=== PATIENT | male | born 1980 | race Hispanic/Latino ===

== ENCOUNTER 2017-10-24 02:32 | Emergency (ER) | payer MEDICAID ==
[~2017-10-24 02:32] MED LIST: BENZ2TAB10 PO; BUPR100T13 PO; DICL2100G TP; ESOM40CA PO; FISH1CAP50 PO; FLUT16H NASAL; GLUC-172 PO; HALOD100I IM; IBUP-2076 PO; INSU10VI3 SQ; LEVAHFA IH; LISI-617 PO; METF10004 PO; PALI234D IM; PRAV20TA4 PO; TRAZ150T79 PO; UBID100C10 PO; metoprolol PO
[2017-10-24] MEDS ORDERED: HYDROCORTISONE 25 MG SUPPOSITORY PR ONE (03:52)
== END 2017-10-24 04:22 | disposition home or self-care (01) ==
LOC: EDH 02:32
DX: K64.8 Other hemorrhoids (principal); K62.5 Hemorrhage of anus and rectum; E11.9 Type 2 diabetes mellitus without complications; I10 Essential (primary) hypertension; Z79.4 Long term (current) use of insulin; Z72.0 Tobacco use
CPT/HCPCS: 82270

== ENCOUNTER 2018-01-02 20:01 | Emergency (ER) | payer MEDICAID ==
[~2018-01-02 20:01] MED LIST changes: +METF-446 PO; -METF10004 PO
== END 2018-01-02 20:58 | disposition home or self-care (01) ==
LOC: EDH 20:01
DX: G89.29 Other chronic pain (principal); M54.5 Low back pain; M54.6 Pain in thoracic spine; E11.9 Type 2 diabetes mellitus without complications; E78.5 Hyperlipidemia, unspecified; I10 Essential (primary) hypertension; F20.9 Schizophrenia, unspecified; F41.9 Anxiety disorder, unspecified; Z90.49 Acquired absence of other specified parts of digestive tract; Z72.0 Tobacco use
CPT/HCPCS: 99281

== ENCOUNTER 2018-01-11 12:38 | Emergency (ER) | payer MEDICAID ==
[2018-01-11] MEDS ORDERED: SODIUM CHLORIDE 0.9% 1000ML 1,000 ML IV ONE (13:17)
[2018-01-11 13:18] LABS: BASOPHILS % (AUTO) 0.6 % (0.0-5.0); EOSINOPHILS % (AUTO) 2.9 % (0.0-8.0); HEMATOCRIT 41.4 % (42-54); LYMPHOCYTES % (AUTO) 27.7 % (21.0-51.0); MEAN CORPUSCULAR HEMOGLOBIN 30.8 pg (27.0-33.0); MEAN CORPUSCULAR HGB CONC 33.9 g/dL (32.0-36.0); MEAN CORPUSCULAR VOLUME 90.8 fL (79-99); MONOCYTES % (AUTO) 10.6 % (3.0-13.0); NEUTROPHILS % (AUTO) 58.2 % (40.0-77.0); NUCLEATED RED BLOOD CELLS 0.1 % (0.0-0.19); PLATELET COUNT (AUTO) 129 K/uL (130-400); RED BLOOD CELL COUNT(AUTO) 4.56 MIL/uL (4.50-6.20); RED CELL DISTRIBUTION WIDTH 12.9 % (11.0-15.5); WHITE BLOOD COUNT (AUTO) 9.4 K/uL (4.8-10.8)
[2018-01-11] MEDS ORDERED: INSULIN HUMULIN R 100 UNIT/ML 3ML ONE (13:27)
[2018-01-11 13:28] LABS: CREATININE 0.9 mg/dL (0.5-1.5); POTASSIUM 4.6 mmol/L (3.5-5.1)
[2018-01-11 13:33] LABS: ALBUMIN 3.3 g/dL (3.5-5.0); BILIRUBIN,TOTAL 0.2 mg/dL (0.2-1.0); LIPASE 93 U/L (114-286)
[2018-01-11 13:35] LABS: ACETONE,BLOOD NEGATIVE (NEGATIVE)
== END 2018-01-11 15:02 | disposition home or self-care (01) ==
LOC: EDH 12:38
DX: E11.65 Type 2 diabetes mellitus with hyperglycemia (principal); E78.5 Hyperlipidemia, unspecified; I10 Essential (primary) hypertension; R42 Dizziness and giddiness; Z79.4 Long term (current) use of insulin
CPT/HCPCS: 36415; 80053; 82009; 82948 ×2; 83690; 84484; 85025; 93005; 96361; 96374; 99285; J1815; J7030

== ENCOUNTER 2018-01-13 20:23 | Emergency (ER) | payer MEDICAID ==
[2018-01-13] MEDS ORDERED: LIDOCAINE HCL 2% VISCOUS 15 ML UDCUP ONE (20:54)
[2018-01-13] MEDS ORDERED: ONDANSETRON HCL 4 MG/2 ML VIAL ONE (20:55)
[2018-01-13] MEDS ORDERED: MAG HYDROX/AL HYDROX/SIMETH ES 30 ML SUSP UDCUP ONE (20:55)
[2018-01-13 21:10] LABS: BASOPHILS % (AUTO) 0.5 % (0.0-5.0); EOSINOPHILS % (AUTO) 3.1 % (0.0-8.0); LYMPHOCYTES % (AUTO) 31.1 % (21.0-51.0); MEAN CORPUSCULAR HEMOGLOBIN 30.6 pg (27.0-33.0); MEAN CORPUSCULAR HGB CONC 34.3 g/dL (32.0-36.0); MEAN CORPUSCULAR VOLUME 89.2 fL (79-99); MONOCYTES % (AUTO) 11.5 % (3.0-13.0); NEUTROPHILS % (AUTO) 53.8 % (40.0-77.0); PLATELET COUNT (AUTO) 150 K/uL (130-400); WHITE BLOOD COUNT (AUTO) 11.4 K/uL (4.8-10.8)
[2018-01-13 21:27] LABS: CREATININE 0.9 mg/dL (0.5-1.5); POTASSIUM 4.1 mmol/L (3.5-5.1)
[2018-01-13 21:32] LABS: ALBUMIN 3.3 g/dL (3.5-5.0); BILIRUBIN,TOTAL 0.3 mg/dL (0.2-1.0)
== END 2018-01-13 21:27 | disposition home or self-care (01) ==
LOC: EDH 20:23
DX: K21.9 Gastro-esophageal reflux disease without esophagitis (principal); K52.9 Noninfective gastroenteritis and colitis, unspecified; K29.70 Gastritis, unspecified, without bleeding; E11.9 Type 2 diabetes mellitus without complications; I10 Essential (primary) hypertension; E78.5 Hyperlipidemia, unspecified; Z79.4 Long term (current) use of insulin; Z72.0 Tobacco use
CPT/HCPCS: 36415; 80053; 85025; 99284; J2405

== ENCOUNTER 2018-01-15 15:03 | Emergency (ER) | payer MEDICAID ==
[2018-01-15] MEDS ORDERED: IBUPROFEN 600 MG TABLET ONE ×2 (15:21→15:28)
[2018-01-15] MEDS ORDERED: CYCLOBENZAPRINE HCL 10 MG TABLET ONE (15:22)
== END 2018-01-15 16:31 | disposition home or self-care (01) ==
LOC: EDH 15:03
DX: S13.4XXA Sprain of ligaments of cervical spine, initial encounter (principal); M54.5 Low back pain; E11.9 Type 2 diabetes mellitus without complications; E78.5 Hyperlipidemia, unspecified; I10 Essential (primary) hypertension; Z79.4 Long term (current) use of insulin; X58.XXXA Exposure to other specified factors, initial encounter; Y93.89 Activity, other specified; Y92.89 Other specified places as the place of occurrence of the external cause; Y99.8 Other external cause status
CPT/HCPCS: 72040; 72100

== ENCOUNTER 2018-01-18 19:42 | Emergency (ER) | payer MEDICAID ==
[2018-01-18] MEDS ORDERED: IBUPROFEN 600 MG TABLET ONE (19:57)
[2018-01-18] MEDS ORDERED: MAGNESIUM CITRATE 296 ML SOLUTION ONE (20:16)
== END 2018-01-18 20:30 | disposition home or self-care (01) ==
LOC: EDH 19:42
DX: S80.02XA Contusion of left knee, initial encounter (principal); S80.01XA Contusion of right knee, initial encounter; F41.9 Anxiety disorder, unspecified; E11.9 Type 2 diabetes mellitus without complications; E78.5 Hyperlipidemia, unspecified; I10 Essential (primary) hypertension; Z90.49 Acquired absence of other specified parts of digestive tract; Z72.0 Tobacco use; W18.39XA Other fall on same level, initial encounter; Y93.01 Activity, walking, marching and hiking; Y92.89 Other specified places as the place of occurrence of the external cause; Y99.8 Other external cause status
CPT/HCPCS: 73562

== ENCOUNTER 2018-02-05 13:18 | Emergency (ER) | payer MEDICAID | END 2018-02-05 14:13 | disposition left against medical advice (07) | LOC: EDH 13:18 | DX: Z53.21 Procedure and treatment not carried out due to patient leaving prior to being seen by health care provider (principal) ==

== ENCOUNTER 2018-02-06 12:24 | Emergency (ER) | payer MEDICAID | END 2018-02-06 12:57 | disposition home or self-care (01) | LOC: EDH 12:24 | DX: G89.29 Other chronic pain (principal); M25.561 Pain in right knee; M25.562 Pain in left knee; E11.9 Type 2 diabetes mellitus without complications; E78.5 Hyperlipidemia, unspecified; I10 Essential (primary) hypertension; Z90.49 Acquired absence of other specified parts of digestive tract; Z98.890 Other specified postprocedural states; Z72.0 Tobacco use | CPT/HCPCS: 99281 ==

== ENCOUNTER 2018-02-22 00:45 | Emergency (ER) | payer MEDICAID ==
[2018-02-22 01:12] LABS: APPEARANCE,URINE Clear (CLEAR); BILIRUBIN,URINE Negative (NEGATIVE); COLOR,URINE Yellow (YELLOW); GLUCOSE, URINE (UA) >=1000 mg/dL (NEGATIVE); KETONES,URINE Negative (NEGATIVE); LEUKOCYTE ESTERASE ,URINE Negative (NEGATIVE); NITRATE,URINE Negative (NEGATIVE); OCCULT BLOOD,URINE Negative (NEGATIVE); PH,URINE 7.5 (5.0-8.0); PROTEIN,URINE Negative (NEGATIVE)
[2018-02-22 01:20] LABS: AMPHET/METH SCREEN,URINE NEGATIVE (NEGATIVE); BARBITURATE SCREEN, URINE NEGATIVE (NEGATIVE); BENZODIAZEPINES SCREEN,URINE NEGATIVE (NEGATIVE); CANNABINOID SCREEN,URINE NEGATIVE (NEGATIVE); COCAINE SCREEN,URINE NEGATIVE (NEGATIVE); OPIATE SCREEN,URINE NEGATIVE (NEGATIVE); PHENCYCLIDINE SCREEN,URINE NEGATIVE (NEGATIVE)
[2018-02-22 01:26] LABS: BASOPHILS % (AUTO) 0.6 % (0.0-5.0); EOSINOPHILS % (AUTO) 1.5 % (0.0-8.0); HEMATOCRIT 38.7 % (42-54); LYMPHOCYTES % (AUTO) 30.3 % (21.0-51.0); MEAN CORPUSCULAR HEMOGLOBIN 32.1 pg (27.0-33.0); MEAN CORPUSCULAR HGB CONC 35.5 g/dL (32.0-36.0); MEAN CORPUSCULAR VOLUME 90.4 fL (79-99); MONOCYTES % (AUTO) 11.8 % (3.0-13.0); NEUTROPHILS % (AUTO) 55.8 % (40.0-77.0); PLATELET COUNT (AUTO) 187 K/uL (130-400); RED BLOOD CELL COUNT(AUTO) 4.28 MIL/uL (4.50-6.20); RED CELL DISTRIBUTION WIDTH 13.7 % (11.0-15.5); WHITE BLOOD COUNT (AUTO) 9.8 K/uL (4.8-10.8)
[2018-02-22 01:35] LABS: CARBON DIOXIDE 27 mmol/L (21-32); CHLORIDE 98 mmol/L (101-111); CREATININE 0.7 mg/dL (0.5-1.5); GLOMERULAR FILTR. RATE CALC 135 mL/min (>60); GLUCOSE,RANDOM 325 mg/dL (70-105); POTASSIUM 3.7 mmol/L (3.5-5.1); SODIUM SERUM 135 mmol/L (136-145); UREA NITROGEN, BLOOD 7 mg/dL (7-18)
[2018-02-22 01:39] LABS: ALANINE AMINOTRANSFERASE 27 U/L (12-78); ALBUMIN 3.3 g/dL (3.5-5.0); ASPARTATE AMINOTRANSFERASE 9 U/L (10-37); BILIRUBIN,TOTAL 0.3 mg/dL (0.2-1.0); CREATINE KINASE, TOTAL 79 U/L (21-232); TOTAL PROTEIN, SERUM 6.7 g/dL (6.0-8.3)
[2018-02-22 01:48] LABS: ALCOHOL, BLOOD < 3 mg/dL (0-10)
[2018-02-22] MEDS ORDERED: SODIUM CHLORIDE 0.9% 1000ML 1,000 ML IV ONE (01:50)
[2018-02-22] MEDS ORDERED: INSULIN HUMULIN R 100 UNIT/ML 3ML ONE (01:51)
[2018-02-22] MEDS ORDERED: ACETAMINOPHEN EXTRA STRENGTH 500 MG TABLET ONE (02:20)
== END 2018-02-22 03:04 | disposition home or self-care (01) ==
LOC: EDH 00:45
DX: S09.90XA Unspecified injury of head, initial encounter (principal); E11.65 Type 2 diabetes mellitus with hyperglycemia; E86.0 Dehydration; M25.551 Pain in right hip; M25.512 Pain in left shoulder; M54.6 Pain in thoracic spine; M54.5 Low back pain; I10 Essential (primary) hypertension; E78.5 Hyperlipidemia, unspecified; Z90.49 Acquired absence of other specified parts of digestive tract; W10.8XXA Fall (on) (from) other stairs and steps, initial encounter; Y93.89 Activity, other specified; Y92.89 Other specified places as the place of occurrence of the external cause; Y99.8 Other external cause status
CPT/HCPCS: 36415; 80053; 80305; 81003; 82550; 82948; 84484; 85025; 93005; 96361; 96374; 99285; G0480; J1815; J7030

== ENCOUNTER 2018-02-26 11:19 | Emergency (ER) | payer MEDICAID ==
[2018-02-26 11:42] LABS: APPEARANCE,URINE Clear (CLEAR); BASOPHILS % (AUTO) 0.7 % (0.0-5.0); BILIRUBIN,URINE Negative (NEGATIVE); COLOR,URINE Yellow (YELLOW); EOSINOPHILS % (AUTO) 1.4 % (0.0-8.0); GLUCOSE, URINE (UA) >=1000 mg/dL (NEGATIVE); HEMATOCRIT 42.7 % (42-54); KETONES,URINE Negative (NEGATIVE); LEUKOCYTE ESTERASE ,URINE Negative (NEGATIVE); LYMPHOCYTES % (AUTO) 26.7 % (21.0-51.0); MEAN CORPUSCULAR VOLUME 91.6 fL (79-99); MONOCYTES % (AUTO) 13.5 % (3.0-13.0); NEUTROPHILS % (AUTO) 57.7 % (40.0-77.0); NITRATE,URINE Negative (NEGATIVE); OCCULT BLOOD,URINE Negative (NEGATIVE); PLATELET COUNT (AUTO) 191 K/uL (130-400); PROTEIN,URINE Negative (NEGATIVE); RED BLOOD CELL COUNT(AUTO) 4.67 MIL/uL (4.50-6.20)
[2018-02-26 11:51] LABS: BACTERIA,URINE None Seen /HPF (None Seen); RBC,URINE 0-1 /HPF (0-1); SQUAMOUS EPITHELIAL CELL,UR 0-2 /HPF (0-2); WBC,URINE 0-1 /HPF (0-1)
[2018-02-26 12:00] LABS: ALBUMIN 3.4 g/dL (3.5-5.0); BILIRUBIN,TOTAL 0.2 mg/dL (0.2-1.0); CREATININE 0.8 mg/dL (0.5-1.5); POTASSIUM 4.1 mmol/L (3.5-5.1); TOTAL PROTEIN, SERUM 6.9 g/dL (6.0-8.3)
[2018-02-26] MEDS ORDERED: ONDANSETRON HCL 4 MG/2 ML VIAL ONE (12:02)
== END 2018-02-26 12:10 | disposition left against medical advice (07) ==
LOC: EDH 11:19
DX: R11.2 Nausea with vomiting, unspecified (principal); I10 Essential (primary) hypertension; E11.9 Type 2 diabetes mellitus without complications; E78.5 Hyperlipidemia, unspecified; Z90.49 Acquired absence of other specified parts of digestive tract; Z87.891 Personal history of nicotine dependence
CPT/HCPCS: 36415; 80053; 81001; 83690; 85025; 96374; 99284; J2405

== ENCOUNTER 2018-03-21 14:56 | Emergency (ER) | payer MEDICAID ==
[2018-03-21] MEDS ORDERED: IBUPROFEN 600 MG TABLET ONE (15:44)
== END 2018-03-21 16:59 | disposition home or self-care (01) ==
LOC: EDH 14:56
DX: M25.561 Pain in right knee (principal); M25.562 Pain in left knee; M25.512 Pain in left shoulder; R51 Headache; M54.2 Cervicalgia; M54.9 Dorsalgia, unspecified; E11.9 Type 2 diabetes mellitus without complications; E78.5 Hyperlipidemia, unspecified; F20.9 Schizophrenia, unspecified; F31.9 Bipolar disorder, unspecified; F41.9 Anxiety disorder, unspecified; Z90.49 Acquired absence of other specified parts of digestive tract; Z72.0 Tobacco use; W10.8XXA Fall (on) (from) other stairs and steps, initial encounter; Y93.89 Activity, other specified; Y92.89 Other specified places as the place of occurrence of the external cause; Y99.8 Other external cause status
CPT/HCPCS: 70450; 73030; 73560

== ENCOUNTER 2018-04-26 10:40 | Emergency (ER) | payer MEDICAID | END 2018-04-26 11:02 | disposition left against medical advice (07) | LOC: EDH 10:40 | DX: M25.562 Pain in left knee (principal); M25.512 Pain in left shoulder; Z53.21 Procedure and treatment not carried out due to patient leaving prior to being seen by health care provider; F41.9 Anxiety disorder, unspecified; F31.9 Bipolar disorder, unspecified; E11.9 Type 2 diabetes mellitus without complications; E78.5 Hyperlipidemia, unspecified; I10 Essential (primary) hypertension; F20.9 Schizophrenia, unspecified; Z72.0 Tobacco use ==

== ENCOUNTER 2018-04-29 12:57 | Emergency (ER) | payer MEDICAID ==
[2018-04-29 13:43] LABS: BASOPHILS % (AUTO) 0.6 % (0.0-5.0); EOSINOPHILS % (AUTO) 2.1 % (0.0-8.0); HEMATOCRIT 41.4 % (42-54); MEAN CORPUSCULAR HEMOGLOBIN 30.9 pg (27.0-33.0); MEAN CORPUSCULAR HGB CONC 33.8 g/dL (32.0-36.0); MEAN CORPUSCULAR VOLUME 91.6 fL (79-99); MONOCYTES % (AUTO) 11.8 % (3.0-13.0); NEUTROPHILS % (AUTO) 57.5 % (40.0-77.0); NUCLEATED RED BLOOD CELLS 0.1 % (0.0-0.19); PLATELET COUNT (AUTO) 145 K/uL (130-400); RED BLOOD CELL COUNT(AUTO) 4.52 MIL/uL (4.50-6.20); RED CELL DISTRIBUTION WIDTH 13.2 % (11.0-15.5); WHITE BLOOD COUNT (AUTO) 9.4 K/uL (4.8-10.8)
[2018-04-29 13:46] LABS: APPEARANCE,URINE Clear (CLEAR); BILIRUBIN,URINE Negative (NEGATIVE); COLOR,URINE Yellow (YELLOW); GLUCOSE, URINE (UA) >=1000 mg/dL (NEGATIVE); KETONES,URINE Negative (NEGATIVE); LEUKOCYTE ESTERASE ,URINE Negative (NEGATIVE); NITRATE,URINE Negative (NEGATIVE); OCCULT BLOOD,URINE Negative (NEGATIVE); PROTEIN,URINE Negative (NEGATIVE); UROBILINOGEN,URINE 0.2 mg/dL (0.2-1.0)
[2018-04-29 13:52] LABS: BACTERIA,URINE Rare /HPF (None Seen); RBC,URINE 0-1 /HPF (0-1); SQUAMOUS EPITHELIAL CELL,UR Rare /HPF (0-2); WBC,URINE 0-1 /HPF (0-1)
[2018-04-29 14:22] LABS: CREATININE 0.7 mg/dL (0.5-1.5)
[2018-04-29 14:26] LABS: ALBUMIN 3.1 g/dL (3.5-5.0); BILIRUBIN,TOTAL 0.2 mg/dL (0.2-1.0); TOTAL PROTEIN, SERUM 6.4 g/dL (6.0-8.3)
== END 2018-04-29 14:57 | disposition home or self-care (01) ==
LOC: EDH 12:57
DX: N34.2 Other urethritis (principal); I10 Essential (primary) hypertension; E11.9 Type 2 diabetes mellitus without complications; E78.5 Hyperlipidemia, unspecified; F31.9 Bipolar disorder, unspecified; F41.9 Anxiety disorder, unspecified; Z98.890 Other specified postprocedural states; Z72.0 Tobacco use
CPT/HCPCS: 36415; 80053; 81001; 82948; 85025

== ENCOUNTER 2018-06-15 19:26 | Emergency (ER) | payer MEDICAID ==
[2018-06-15] MEDS ORDERED: IBUPROFEN 600 MG TABLET ONE (19:34)
[2018-06-15 19:54] LABS: BASOPHILS % (AUTO) 0.8 % (0.0-5.0); EOSINOPHILS % (AUTO) 1.8 % (0.0-8.0); HEMATOCRIT 39.7 % (42-54); LYMPHOCYTES % (AUTO) 27.7 % (21.0-51.0); MEAN CORPUSCULAR HEMOGLOBIN 30.8 pg (27.0-33.0); MEAN CORPUSCULAR HGB CONC 34.1 g/dL (32.0-36.0); MEAN CORPUSCULAR VOLUME 90.4 fL (79-99); MONOCYTES % (AUTO) 11.9 % (3.0-13.0); NEUTROPHILS % (AUTO) 57.8 % (40.0-77.0); NUCLEATED RED BLOOD CELLS 0.1 % (0.0-0.19); PLATELET COUNT (AUTO) 194 K/uL (130-400); RED BLOOD CELL COUNT(AUTO) 4.39 MIL/uL (4.50-6.20); RED CELL DISTRIBUTION WIDTH 13.3 % (11.0-15.5); WHITE BLOOD COUNT (AUTO) 11.5 K/uL (4.8-10.8)
[2018-06-15] MEDS ORDERED: ONDANSETRON HCL 4 MG/2 ML VIAL ONE (19:56)
[2018-06-15] MEDS ORDERED: SODIUM CHLORIDE 0.9% 1000ML 1,000 ML IV ONE (19:56)
[2018-06-15] MEDS ORDERED: MORPHINE SULFATE 4 MG/1ML SYG ONE (19:56)
[2018-06-15 20:03] LABS: BILIRUBIN,URINE Negative (NEGATIVE); COLOR,URINE Yellow (YELLOW); GLUCOSE, URINE (UA) >=1000 mg/dL (NEGATIVE); KETONES,URINE Negative (NEGATIVE); LEUKOCYTE ESTERASE ,URINE Negative (NEGATIVE); NITRATE,URINE Negative (NEGATIVE); OCCULT BLOOD,URINE Negative (NEGATIVE); PROTEIN,URINE Negative (NEGATIVE)
[2018-06-15 20:04] LABS: CREATININE 0.8 mg/dL (0.5-1.5); POTASSIUM 4.5 mmol/L (3.5-5.1)
[2018-06-15 20:08] LABS: ALBUMIN 3.7 g/dL (3.5-5.0); BILIRUBIN,TOTAL 0.3 mg/dL (0.2-1.0); TOTAL PROTEIN, SERUM 6.8 g/dL (6.0-8.3)
[2018-06-15 20:09] LABS: APPEARANCE,URINE CLEAR (CLEAR)
[2018-06-15] MEDS ORDERED: IOHEXOL-350 75 ML VIAL IV ONE (20:16)
== END 2018-06-15 21:32 | disposition home or self-care (01) ==
LOC: EDH 19:26
DX: N39.0 Urinary tract infection, site not specified (principal); K52.9 Noninfective gastroenteritis and colitis, unspecified; E11.9 Type 2 diabetes mellitus without complications; F31.9 Bipolar disorder, unspecified; F41.9 Anxiety disorder, unspecified; I10 Essential (primary) hypertension; F20.9 Schizophrenia, unspecified; E78.5 Hyperlipidemia, unspecified
CPT/HCPCS: 36415; 74177; 80053; 81003; 83690; 85025; 93005; 96361; 96374; 96375; 99284; J2270; J2405; J7030; Q9967

== ENCOUNTER 2018-07-27 23:21 | Emergency (ER) | payer MEDICAID ==
[2018-07-28 00:50] LABS: APPEARANCE,URINE Clear (CLEAR); BILIRUBIN,URINE Negative (NEGATIVE); COLOR,URINE Yellow (YELLOW); GLUCOSE, URINE (UA) >=1000 mg/dL (NEGATIVE); KETONES,URINE Negative (NEGATIVE); LEUKOCYTE ESTERASE ,URINE Negative (NEGATIVE); NITRATE,URINE Negative (NEGATIVE); OCCULT BLOOD,URINE Negative (NEGATIVE); PH,URINE 6.5 (5.0-8.0); PROTEIN,URINE Negative (NEGATIVE)
[2018-07-28] MEDS ORDERED: CYCLOBENZAPRINE HCL 10 MG TABLET ONE (02:02)
[2018-07-28] MEDS ORDERED: KETOROLAC TROMETHAMINE 60 MG/2 ML VIAL ONE (02:03)
== END 2018-07-28 02:16 | disposition home or self-care (01) ==
LOC: EDH 23:21
DX: M62.838 Other muscle spasm (principal); M54.5 Low back pain; R05 Cough; R10.9 Unspecified abdominal pain; E78.5 Hyperlipidemia, unspecified; I10 Essential (primary) hypertension; E11.9 Type 2 diabetes mellitus without complications; F31.9 Bipolar disorder, unspecified; F41.9 Anxiety disorder, unspecified; F20.9 Schizophrenia, unspecified; Z72.0 Tobacco use
CPT/HCPCS: 72100; 81003; 96372; 99284; J1885

== ENCOUNTER 2018-07-29 21:52 | Emergency (ER) | payer MEDICAID ==
[2018-07-29] MEDS ORDERED: HYDROXYZINE HCL 25 MG TABLET ONE (22:15)
== END 2018-07-29 22:34 | disposition home or self-care (01) ==
LOC: EDH 21:52
DX: F41.0 Panic disorder [episodic paroxysmal anxiety] (principal); F31.9 Bipolar disorder, unspecified; E11.9 Type 2 diabetes mellitus without complications; I10 Essential (primary) hypertension; E78.5 Hyperlipidemia, unspecified; F20.9 Schizophrenia, unspecified; Z72.0 Tobacco use

== ENCOUNTER 2018-08-19 14:56 | Emergency (ER) | payer MEDICAID ==
[2018-08-19] MEDS ORDERED: ACETAMINOPHEN EXTRA STRENGTH 500 MG TABLET ONE (15:10)
== END 2018-08-19 15:22 | disposition home or self-care (01) ==
LOC: EDH 14:56
DX: S80.02XA Contusion of left knee, initial encounter (principal); S80.01XA Contusion of right knee, initial encounter; E11.9 Type 2 diabetes mellitus without complications; E78.5 Hyperlipidemia, unspecified; F31.9 Bipolar disorder, unspecified; I10 Essential (primary) hypertension; Z87.891 Personal history of nicotine dependence; F20.9 Schizophrenia, unspecified; W01.0XXA Fall on same level from slipping, tripping and stumbling without subsequent striking against object, initial encounter; Y93.89 Activity, other specified; Y92.481 Parking lot as the place of occurrence of the external cause; Y99.8 Other external cause status
CPT/HCPCS: 99282

== ENCOUNTER 2018-12-13 12:04 | Emergency (ER) | payer MEDICAID ==
[2018-12-13] MEDS ORDERED: IBUPROFEN 600 MG TABLET ONE (12:39)
== END 2018-12-13 12:47 | disposition home or self-care (01) ==
LOC: EDH 12:04
DX: S80.01XA Contusion of right knee, initial encounter (principal); I10 Essential (primary) hypertension; F32.9 Major depressive disorder, single episode, unspecified; F20.9 Schizophrenia, unspecified; E78.5 Hyperlipidemia, unspecified; F41.9 Anxiety disorder, unspecified; Z90.49 Acquired absence of other specified parts of digestive tract; W01.0XXA Fall on same level from slipping, tripping and stumbling without subsequent striking against object, initial encounter; Y93.89 Activity, other specified; Y92.89 Other specified places as the place of occurrence of the external cause; Y99.0 Civilian activity done for income or pay
CPT/HCPCS: 73562

== ENCOUNTER 2019-02-15 17:42 | Emergency (ER) | payer MEDICAID ==
[2019-02-15 18:17] LABS: BASOPHILS % (AUTO) 0.7 % (0.0-5.0); EOSINOPHILS % (AUTO) 0.9 % (0.0-8.0); HEMATOCRIT 37.7 % (42-54); LYMPHOCYTES % (AUTO) 30.2 % (21.0-51.0); MEAN CORPUSCULAR HEMOGLOBIN 31.9 pg (27.0-33.0); MEAN CORPUSCULAR VOLUME 91.2 fL (79-99); MONOCYTES % (AUTO) 14.1 % (3.0-13.0); NEUTROPHILS % (AUTO) 54.1 % (40.0-77.0); PLATELET COUNT (AUTO) 214 K/uL (130-400); RED BLOOD CELL COUNT(AUTO) 4.14 MIL/uL (4.50-6.20); RED CELL DISTRIBUTION WIDTH 13.6 % (11.0-15.5); WHITE BLOOD COUNT (AUTO) 12.1 K/uL (4.8-10.8)
[2019-02-15 18:23] LABS: AMPHET/METH SCREEN,URINE NEGATIVE (NEGATIVE); BARBITURATE SCREEN, URINE NEGATIVE (NEGATIVE); BENZODIAZEPINES SCREEN,URINE NEGATIVE (NEGATIVE); CANNABINOID SCREEN,URINE NEGATIVE (NEGATIVE); COCAINE SCREEN,URINE NEGATIVE (NEGATIVE); OPIATE SCREEN,URINE NEGATIVE (NEGATIVE); PHENCYCLIDINE SCREEN,URINE NEGATIVE (NEGATIVE)
[2019-02-15 18:28] LABS: CARBON DIOXIDE 28 mmol/L (21-32); CHLORIDE 97 mmol/L (101-111); CREATININE 0.7 mg/dL (0.5-1.5); GLOMERULAR FILTR. RATE CALC 134 mL/min (>60); GLUCOSE,RANDOM 197 mg/dL (70-105); SODIUM SERUM 132 mmol/L (136-145); UREA NITROGEN, BLOOD 8 mg/dL (7-18)
[2019-02-15 18:33] LABS: ALANINE AMINOTRANSFERASE 36 U/L (12-78); ASPARTATE AMINOTRANSFERASE 21 U/L (10-37); BILIRUBIN,TOTAL 0.3 mg/dL (0.2-1.0); SALICYLATE 3.3 mg/dL (2.8-20.0); TOTAL PROTEIN, SERUM 7.5 g/dL (6.0-8.3)
[2019-02-15 18:35] LABS: ACETAMINOPHEN < 1 mcg/mL (10-29); ALCOHOL, BLOOD < 3 mg/dL (0-10)
== END 2019-02-15 21:49 | disposition short-term general hospital (02) ==
LOC: EDH 17:42
DX: R45.851 Suicidal ideations (principal); F41.9 Anxiety disorder, unspecified; F31.9 Bipolar disorder, unspecified; E11.9 Type 2 diabetes mellitus without complications; E78.5 Hyperlipidemia, unspecified; I10 Essential (primary) hypertension; F20.9 Schizophrenia, unspecified; Z90.49 Acquired absence of other specified parts of digestive tract; Z72.0 Tobacco use
CPT/HCPCS: 36415; 80053; 80305; 85025; 99285; G0480 ×2; G0481

== ENCOUNTER 2022-02-21 21:27 | Emergency (ER) | payer MEDICAID ==
[~2022-02-21] VITALS: Ht 180.3 cm; Wt 106.1 kg
[~2022-02-21 21:27] MED LIST changes: -LISI-617 PO; +LISI5TAB21 PO
[2022-02-22 01:12] VITALS: BP 131/65
[2022-02-22 01:13] LABS: BASOPHILS % (AUTO) 0.5 % (0.0-5.0); EOSINOPHILS % (AUTO) 0.8 % (0.0-8.0); HEMATOCRIT 45.6 % (42-54); LYMPHOCYTES % (AUTO) 21.3 % (21.0-51.0); MEAN CORPUSCULAR HGB CONC 35.5 g/dL (32.0-36.0); MEAN CORPUSCULAR VOLUME 87.4 fL (79-99); NEUTROPHILS % (AUTO) 65.9 % (40.0-77.0); PLATELET COUNT (AUTO) 171 K/uL (130-400); RED BLOOD CELL COUNT(AUTO) 5.22 MIL/uL (4.50-6.20); RED CELL DISTRIBUTION WIDTH 13.2 % (11.0-15.5); WHITE BLOOD COUNT (AUTO) 14.8 K/uL (4.8-10.8)
[2022-02-22 01:23] LABS: CARBON DIOXIDE 26 mmol/L (21-32); CHLORIDE 98 mmol/L (101-111); CREATININE 0.6 mg/dL (0.5-1.5); GLOMERULAR FILTR. RATE CALC 158 mL/min (>60); GLUCOSE,RANDOM 243 mg/dL (70-105); POTASSIUM 3.8 mmol/L (3.5-5.1); SODIUM SERUM 133 mmol/L (136-145); UREA NITROGEN, BLOOD 23 mg/dL (7-18)
[2022-02-22 01:27] LABS: ALANINE AMINOTRANSFERASE 32 U/L (12-78); ALBUMIN 3.6 g/dL (3.5-5.0); ASPARTATE AMINOTRANSFERASE 17 U/L (10-37); TOTAL PROTEIN, SERUM 6.9 g/dL (6.0-8.3)
[2022-02-22] MEDS ORDERED: ACETAMINOPHEN 500 MG TABLET PO ONE (01:30)
[2022-02-22 01:31] LABS: CRP QUANTITATIVE < 2.00 mg/L (0.00-9.0)
[2022-02-22 02:16] LABS: APPEARANCE,URINE CLEAR (CLEAR); BILIRUBIN,URINE NEGATIVE (NEGATIVE); COLOR,URINE COLORLESS (YELLOW); GLUCOSE, URINE (UA) >=1000 mg/dL (NEGATIVE); KETONES,URINE NEGATIVE (NEGATIVE); LEUKOCYTE ESTERASE ,URINE NEGATIVE Leu/uL (NEGATIVE); NITRATE,URINE NEGATIVE (NEGATIVE); OCCULT BLOOD,URINE NEGATIVE (NEGATIVE); PH,URINE 5.5 (5.0-8.0); PROTEIN,URINE NEGATIVE (NEGATIVE); UROBILINOGEN,URINE 0.2 mg/dL (0.2-1.0)
[2022-02-22 02:19] LABS: AMPHET/METH SCREEN,URINE NEGATIVE (NEGATIVE); BARBITURATE SCREEN, URINE NEGATIVE (NEGATIVE); BENZODIAZEPINES SCREEN,URINE NEGATIVE (NEGATIVE); CANNABINOID SCREEN,URINE NEGATIVE (NEGATIVE); COCAINE SCREEN,URINE NEGATIVE (NEGATIVE); OPIATE SCREEN,URINE NEGATIVE (NEGATIVE); PHENCYCLIDINE SCREEN,URINE NEGATIVE (NEGATIVE); RBC,URINE 0-1 /HPF (0-1); SQUAMOUS EPITHELIAL CELL,UR RARE /HPF (0-2); WBC,URINE 0-1 /HPF (0-1)
[2022-02-22 02:22] LABS: ERYTHROCYTE SEDIMENTATION RATE 4 MM/HR (0-15)
[2022-02-22] MEDS ORDERED: ACET-66 PO (02:30)
== END 2022-02-22 02:33 | disposition home or self-care (01) ==
LOC: EDH 21:27
DX: S76.912A Strain of unspecified muscles, fascia and tendons at thigh level, left thigh, initial encounter (principal); S76.911A Strain of unspecified muscles, fascia and tendons at thigh level, right thigh, initial encounter; S86.911A Strain of unspecified muscle(s) and tendon(s) at lower leg level, right leg, initial encounter; S86.912A Strain of unspecified muscle(s) and tendon(s) at lower leg level, left leg, initial encounter; E78.00 Pure hypercholesterolemia, unspecified; E11.9 Type 2 diabetes mellitus without complications; F20.9 Schizophrenia, unspecified; F32.A Depression, unspecified; F41.9 Anxiety disorder, unspecified; I10 Essential (primary) hypertension; Z79.1 Long term (current) use of non-steroidal anti-inflammatories (NSAID); Z79.4 Long term (current) use of insulin; Z90.49 Acquired absence of other specified parts of digestive tract; X58.XXXA Exposure to other specified factors, initial encounter; Y93.89 Activity, other specified; Y92.89 Other specified places as the place of occurrence of the external cause; Y99.8 Other external cause status
CPT/HCPCS: 36415; 80053; 80305; 81001; 82550; 85025; 85651; 86140

== ENCOUNTER 2022-03-09 15:07 | Emergency (ER) | payer MEDICAID ==
[~2022-03-09] VITALS: Ht 165.1 cm; Wt 111.1 kg
[~2022-03-09 15:07] MED LIST changes: +ACET-66 PO
[2022-03-09 19:26] LABS: BASOPHILS % (AUTO) 0.3 % (0.0-5.0); EOSINOPHILS % (AUTO) 0.3 % (0.0-8.0); HEMATOCRIT 42.5 % (42-54); LYMPHOCYTES % (AUTO) 9.2 % (21.0-51.0); MEAN CORPUSCULAR HGB CONC 35.1 g/dL (32.0-36.0); MEAN CORPUSCULAR VOLUME 88.5 fL (79-99); MONOCYTES % (AUTO) 11.3 % (3.0-13.0); NEUTROPHILS % (AUTO) 78.3 % (40.0-77.0); PLATELET COUNT (AUTO) 186 K/uL (130-400); RED CELL DISTRIBUTION WIDTH 13.2 % (11.0-15.5); WHITE BLOOD COUNT (AUTO) 19.7 K/uL (4.8-10.8)
[2022-03-09 19:50] LABS: APPEARANCE,URINE CLEAR (CLEAR); BILIRUBIN,URINE NEGATIVE (NEGATIVE); COLOR,URINE COLORLESS (YELLOW); GLUCOSE, URINE (UA) >=1000 mg/dL (NEGATIVE); KETONES,URINE 5 mg/dL (NEGATIVE); LEUKOCYTE ESTERASE ,URINE NEGATIVE Leu/uL (NEGATIVE); NITRATE,URINE NEGATIVE (NEGATIVE); OCCULT BLOOD,URINE NEGATIVE (NEGATIVE); PROTEIN,URINE NEGATIVE (NEGATIVE); UROBILINOGEN,URINE 0.2 mg/dL (0.2-1.0)
[2022-03-09 19:51] LABS: SQUAMOUS EPITHELIAL CELL,UR RARE /HPF (0-2); WBC,URINE 0-1 /HPF (0-1)
[2022-03-09 19:57] LABS: CARBON DIOXIDE 28 mmol/L (21-32); CHLORIDE 95 mmol/L (101-111); CREATININE 0.7 mg/dL (0.5-1.5); GLOMERULAR FILTR. RATE CALC 132 mL/min (>60); GLUCOSE,RANDOM 283 mg/dL (70-105); POTASSIUM 3.7 mmol/L (3.5-5.1); SODIUM SERUM 132 mmol/L (136-145); UREA NITROGEN, BLOOD 12 mg/dL (7-18)
[2022-03-09 20:00] VITALS: BP 137/83
[2022-03-09] MEDS: HYDROCODONE/ACETAMINOPHEN 10/325 MG TAB ONE ×2 (20:00→20:31)
[2022-03-09] MEDS ORDERED: HYDROCODONE/ACETAMINOPHEN 10/325 MG TAB PO SCH (20:00)
[2022-03-09 20:04] LABS: ALANINE AMINOTRANSFERASE 20 U/L (12-78); ALBUMIN 3.3 g/dL (3.5-5.0); ALCOHOL, BLOOD < 3 mg/dL (0-10); ASPARTATE AMINOTRANSFERASE 14 U/L (10-37)
== END 2022-03-09 20:32 | disposition home or self-care (01) ==
LOC: EDH 15:07
DX: S80.12XA Contusion of left lower leg, initial encounter (principal); S70.12XA Contusion of left thigh, initial encounter; F41.9 Anxiety disorder, unspecified; F32.A Depression, unspecified; E11.9 Type 2 diabetes mellitus without complications; E78.00 Pure hypercholesterolemia, unspecified; I10 Essential (primary) hypertension; R22.42 Localized swelling, mass and lump, left lower limb; F20.9 Schizophrenia, unspecified; Z90.89 Acquired absence of other organs; Z79.84 Long term (current) use of oral hypoglycemic drugs; Z79.4 Long term (current) use of insulin; Z79.899 Other long term (current) drug therapy; W01.0XXA Fall on same level from slipping, tripping and stumbling without subsequent striking against object, initial encounter; Y93.89 Activity, other specified; Y92.89 Other specified places as the place of occurrence of the external cause; Y99.8 Other external cause status
CPT/HCPCS: 36415; 70450; 72125; 72190; 73552; 73590; 80053; 81001; 83605; 84484; 85025; 93971

== ENCOUNTER 2022-03-22 11:18 | Emergency (ER) | payer MEDICAID ==
[2022-03-22 11:19] VITALS: BP 142/89
== END 2022-03-22 12:16 | disposition left against medical advice (07) ==
LOC: EDH 11:18
DX: M79.652 Pain in left thigh (principal); Z53.21 Procedure and treatment not carried out due to patient leaving prior to being seen by health care provider

== ENCOUNTER 2022-07-05 15:17 | Emergency (ER) | payer MEDICAID ==
[~2022-07-05] VITALS: Ht 180.3 cm; Wt 88.5 kg
[2022-07-05 16:08] VITALS: BP 122/74
[2022-07-05 16:15] LABS: APPEARANCE,URINE CLEAR (CLEAR); BILIRUBIN,URINE NEGATIVE (NEGATIVE); COLOR,URINE COLORLESS (YELLOW); GLUCOSE, URINE (UA) >=1000 mg/dL (NEGATIVE); KETONES,URINE NEGATIVE (NEGATIVE); LEUKOCYTE ESTERASE ,URINE NEGATIVE Leu/uL (NEGATIVE); NITRATE,URINE NEGATIVE (NEGATIVE); OCCULT BLOOD,URINE NEGATIVE (NEGATIVE); PROTEIN,URINE NEGATIVE (NEGATIVE); UROBILINOGEN,URINE 0.2 mg/dL (0.2-1.0)
[2022-07-05 16:17] LABS: AMPHET/METH SCREEN,URINE NEGATIVE (NEGATIVE); BARBITURATE SCREEN, URINE NEGATIVE (NEGATIVE); BENZODIAZEPINES SCREEN,URINE NEGATIVE (NEGATIVE); CANNABINOID SCREEN,URINE NEGATIVE (NEGATIVE); COCAINE SCREEN,URINE NEGATIVE (NEGATIVE); OPIATE SCREEN,URINE NEGATIVE (NEGATIVE); PHENCYCLIDINE SCREEN,URINE NEGATIVE (NEGATIVE)
[2022-07-05 16:20] LABS: RBC,URINE 0-1 /HPF (0-1); SQUAMOUS EPITHELIAL CELL,UR RARE /HPF (0-2); WBC,URINE 0-1 /HPF (0-1)
[2022-07-05 16:26] LABS: BASOPHILS % (AUTO) 0.4 % (0.0-5.0); EOSINOPHILS % (AUTO) 0.7 % (0.0-8.0); LYMPHOCYTES % (AUTO) 14.9 % (21.0-51.0); MEAN CORPUSCULAR HEMOGLOBIN 29.9 pg (27.0-33.0); MEAN CORPUSCULAR VOLUME 87.9 fL (79-99); MONOCYTES % (AUTO) 10.6 % (3.0-13.0); NEUTROPHILS % (AUTO) 72.9 % (40.0-77.0); PLATELET COUNT (AUTO) 206 K/uL (130-400); RED BLOOD CELL COUNT(AUTO) 5.69 MIL/uL (4.50-6.20); RED CELL DISTRIBUTION WIDTH 14.3 % (11.0-15.5); WHITE BLOOD COUNT (AUTO) 11.2 K/uL (4.8-10.8)
[2022-07-05 16:30] LABS: CARBON DIOXIDE 26 mmol/L (21-32); CHLORIDE 93 mmol/L (101-111); CREATININE 0.8 mg/dL (0.5-1.5); GLOMERULAR FILTR. RATE CALC 113 mL/min (>90); GLUCOSE,RANDOM 366 mg/dL (70-105); POTASSIUM 3.9 mmol/L (3.5-5.1); SODIUM SERUM 127 mmol/L (136-145); UREA NITROGEN, BLOOD 13 mg/dL (7-18)
[2022-07-05 16:34] LABS: ALANINE AMINOTRANSFERASE 33 U/L (12-78); ALBUMIN 3.7 g/dL (3.5-5.0); ASPARTATE AMINOTRANSFERASE 12 U/L (10-37); SALICYLATE 3.6 mg/dL (2.8-20.0); TOTAL PROTEIN, SERUM 7.4 g/dL (6.0-8.3)
[2022-07-05 16:35] LABS: ACETAMINOPHEN < 1 mcg/mL (10-29)
[2022-07-05] MEDS ORDERED: 0.9%NACL 1000ML 1,000 ML IV ONE (17:00)
[2022-07-05] MEDS ORDERED: INSULIN HUMULIN R 100 UNIT/ML 3ML IV ONE (17:00)
== END 2022-07-05 18:26 | disposition home or self-care (01) ==
LOC: EDH 15:17
DX: R45.851 Suicidal ideations (principal); R44.3 Hallucinations, unspecified; I10 Essential (primary) hypertension; E11.9 Type 2 diabetes mellitus without complications; E78.00 Pure hypercholesterolemia, unspecified; Z79.899 Other long term (current) drug therapy; Z79.84 Long term (current) use of oral hypoglycemic drugs
CPT/HCPCS: 99283; 96374; 96361; 80053; 80305; 85025; 82948; 36415; 81001; J1815; G0481; J7030

== ENCOUNTER 2022-11-08 16:24 | Emergency (ER) | payer MEDICAID ==
[~2022-11-08] VITALS: Ht 180.3 cm; Wt 122.5 kg
[~2022-11-08 16:24] MED LIST changes: -BENZ2TAB10 PO; +BENZ2TAB70 PO
[2022-11-08] MEDS ORDERED: KETOROLAC 30MG VIAL (30MG/ML) IVP ONE (17:00)
[2022-11-08] MEDS ORDERED: FAMOTIDINE 20MG VIAL IV ONE (17:00)
[2022-11-08 17:30] LABS: HEMATOCRIT 44.5 % (42-54); MEAN CORPUSCULAR HEMOGLOBIN 30.5 pg (27.0-33.0); MEAN CORPUSCULAR HGB CONC 34.8 g/dL (32.0-36.0); MEAN CORPUSCULAR VOLUME 87.6 fL (79-99); RED BLOOD CELL COUNT(AUTO) 5.08 MIL/uL (4.50-6.20); RED CELL DISTRIBUTION WIDTH 12.8 % (11.0-15.5); WHITE BLOOD COUNT (AUTO) 9.2 K/uL (4.8-10.8)
[2022-11-08 17:37] LABS: CREATININE 0.8 mg/dL (0.5-1.5); POTASSIUM 3.8 mmol/L (3.5-5.1)
[2022-11-08 17:42] LABS: ALBUMIN 3.2 g/dL (3.5-5.0); TOTAL PROTEIN, SERUM 6.6 g/dL (6.0-8.3)
[2022-11-08] MEDS ORDERED: INSULIN HUMULIN R 100 UNIT/ML 3ML SQ ONE (18:00)
[2022-11-08 18:48] VITALS: BP 119/71; PULSE 91; RESP 18
== END 2022-11-08 18:51 | disposition home or self-care (01) ==
LOC: EDH 16:24
DX: R73.9 Hyperglycemia, unspecified (principal); E78.00 Pure hypercholesterolemia, unspecified; I10 Essential (primary) hypertension; Z79.4 Long term (current) use of insulin; Z79.84 Long term (current) use of oral hypoglycemic drugs; Z79.899 Other long term (current) drug therapy; W01.10XA Fall on same level from slipping, tripping and stumbling with subsequent striking against unspecified object, initial encounter; Y93.89 Activity, other specified; Y92.89 Other specified places as the place of occurrence of the external cause; Y99.8 Other external cause status
CPT/HCPCS: 99285; 70450; 96374; 71045; 96375; 80053; 85027; 36415; 73521; 72125; 96372; J1815; J1885; S0028; J3490

== ENCOUNTER 2022-11-09 17:52 | Emergency (ER) | payer MEDICAID ==
[~2022-11-09] VITALS: Ht 180.3 cm; Wt 122.5 kg
[2022-11-09 17:53] VITALS: BP 164/90; PULSE 113; RESP 18
== END 2022-11-09 18:02 | disposition left against medical advice (07) ==
LOC: EDH 17:52
DX: R45.851 Suicidal ideations (principal); Z53.21 Procedure and treatment not carried out due to patient leaving prior to being seen by health care provider
CPT/HCPCS: 99281

== ENCOUNTER 2022-11-28 11:20 | Emergency (ER) | payer MEDICAID | END 2022-11-28 11:30 | disposition home or self-care (01) | LOC: EDH 11:20 | DX: R45.851 Suicidal ideations (principal); Z53.21 Procedure and treatment not carried out due to patient leaving prior to being seen by health care provider ==

== ENCOUNTER 2022-12-27 09:34 | Emergency (ER) | payer MEDICAID ==
[~2022-12-27] VITALS: Ht 180.3 cm; Wt 108.9 kg
[2022-12-27] MEDS ORDERED: KETOROLAC 30MG VIAL (30MG/ML) IM ONE (10:30)
[2022-12-27] MEDS ORDERED: ACET-2079 PO (11:14)
[2022-12-27] MEDS ORDERED: IBUP-2070 PO (11:14)
[2022-12-27 11:18] VITALS: BP 124/76; PULSE 98; RESP 18; O2SAT 98
== END 2022-12-27 11:24 | disposition home or self-care (01) ==
LOC: EDH 09:34
DX: S43.085A Other dislocation of left shoulder joint, initial encounter (principal); S00.81XA Abrasion of other part of head, initial encounter; I10 Essential (primary) hypertension; E11.9 Type 2 diabetes mellitus without complications; E78.00 Pure hypercholesterolemia, unspecified; Z79.84 Long term (current) use of oral hypoglycemic drugs; Z90.49 Acquired absence of other specified parts of digestive tract; Z79.899 Other long term (current) drug therapy; Z98.890 Other specified postprocedural states; W01.0XXA Fall on same level from slipping, tripping and stumbling without subsequent striking against object, initial encounter; Y93.89 Activity, other specified; Y92.89 Other specified places as the place of occurrence of the external cause; Y99.8 Other external cause status
CPT/HCPCS: 99283; 73030; 96372; J1885

== ENCOUNTER 2023-01-02 11:50 | Emergency (ER) | payer MEDICAID ==
[~2023-01-02] VITALS: Ht 167.6 cm; Wt 108.9 kg
[~2023-01-02 11:50] MED LIST changes: +ACET-2079 PO; +IBUP-2070 PO
[2023-01-02 12:41] VITALS: BP 124/74; PULSE 88; RESP 16; O2SAT 99
== END 2023-01-02 14:49 | disposition home or self-care (01) ==
LOC: EDH 11:50
DX: S43.491A Other sprain of right shoulder joint, initial encounter (principal); I10 Essential (primary) hypertension; E11.9 Type 2 diabetes mellitus without complications; E78.00 Pure hypercholesterolemia, unspecified; F20.9 Schizophrenia, unspecified; Z79.4 Long term (current) use of insulin; Z79.84 Long term (current) use of oral hypoglycemic drugs; Z79.899 Other long term (current) drug therapy; Z90.49 Acquired absence of other specified parts of digestive tract; Z98.890 Other specified postprocedural states; W18.39XA Other fall on same level, initial encounter; Y93.89 Activity, other specified; Y92.89 Other specified places as the place of occurrence of the external cause; Y99.8 Other external cause status
CPT/HCPCS: 73030

== ENCOUNTER 2023-02-10 16:27 | Emergency (ER) | payer MEDICAID ==
[~2023-02-10] VITALS: Ht 180.3 cm; Wt 111.1 kg
[2023-02-10 16:41] VITALS: BP 136/88; PULSE 107; RESP 18; O2SAT 96
[2023-02-10] MEDS ORDERED: FLUT16H NASAL (17:48)
[2023-02-10] MEDS ORDERED: CETI10CA5 PO (17:48)
[2023-02-10 17:58] LABS: BASOPHILS # (AUTO) 0.06 K/uL (0.00-0.20); BASOPHILS % (AUTO) 0.6 % (0.0-5.0); EOSINOPHILS # (AUTO) 0.09 K/uL (0.00-0.70); EOSINOPHILS % (AUTO) 0.9 % (0.0-8.0); HEMATOCRIT 48.3 % (42-54); IMMATURE GRANULOCYTE ABSOLUTE 0.04 K/uL (0-1); LYMPHOCYTES # (AUTO) 2.8 K/uL (1.0-4.8); LYMPHOCYTES % (AUTO) 26.9 % (21.0-51.0); MEAN CORPUSCULAR HEMOGLOBIN 30.6 pg (27.0-33.0); MEAN CORPUSCULAR HGB CONC 34.4 g/dL (32.0-36.0); MONOCYTES # (AUTO) 1.3 K/uL (0.1-1.0); MONOCYTES % (AUTO) 12.9 % (3.0-13.0); NEUTROPHILS % (AUTO) 58.3 % (40.0-77.0); PLATELET COUNT (AUTO) 225 K/uL (130-400); RED BLOOD CELL COUNT(AUTO) 5.43 MIL/uL (4.50-6.20); RED CELL DISTRIBUTION WIDTH 12.4 % (11.0-15.5); WHITE BLOOD COUNT (AUTO) 10.3 K/uL (4.8-10.8)
[2023-02-10] MEDS ORDERED: CETIRIZINE HCL 5 MG TABLET PO SCH (18:00)
[2023-02-10] MEDS ORDERED: SOLU-MEDROL 125MG VIAL IVP ONE (18:00)
[2023-02-10] MEDS ORDERED: 0.9%NACL 1000ML 1,000 ML IV ONE (18:00)
[2023-02-10 18:06] LABS: CREATININE 0.8 mg/dL (0.5-1.5); POTASSIUM 3.8 mmol/L (3.5-5.1)
[2023-02-11] MEDS ORDERED: CETIRIZINE HCL 5 MG TABLET PO SCH (09:00)
== END 2023-02-10 18:50 | disposition home or self-care (01) ==
LOC: EDH 16:27
DX: J30.9 Allergic rhinitis, unspecified (principal); E11.9 Type 2 diabetes mellitus without complications; E78.00 Pure hypercholesterolemia, unspecified; I10 Essential (primary) hypertension; Z79.4 Long term (current) use of insulin; Z79.84 Long term (current) use of oral hypoglycemic drugs; Z79.899 Other long term (current) drug therapy; Z90.49 Acquired absence of other specified parts of digestive tract
CPT/HCPCS: 99283; 96374; 96361; 80048; 85025; 36415; J7030; J2930

== ENCOUNTER 2023-03-06 16:15 | Emergency (ER) | payer MEDICAID ==
[~2023-03-06] VITALS: Ht 177.8 cm; Wt 113.9 kg
[~2023-03-06 16:15] MED LIST changes: +CETI10CA5 PO
[2023-03-06 18:18] VITALS: BP 142/78; PULSE 94; RESP 16; O2SAT 98
[2023-03-06] MEDS ORDERED: MUPI22OI2 TP (18:40)
[2023-03-06] MEDS ORDERED: CEPH500T PO (18:40)
== END 2023-03-06 19:01 | disposition home or self-care (01) ==
LOC: EDH 16:15
DX: L03.012 Cellulitis of left finger (principal); E11.9 Type 2 diabetes mellitus without complications; I10 Essential (primary) hypertension; E78.00 Pure hypercholesterolemia, unspecified; J45.909 Unspecified asthma, uncomplicated; Z79.84 Long term (current) use of oral hypoglycemic drugs; Z79.899 Other long term (current) drug therapy; Z90.49 Acquired absence of other specified parts of digestive tract; Z98.890 Other specified postprocedural states
CPT/HCPCS: 10060; 73140

== ENCOUNTER 2023-04-11 21:54 | Emergency (ER) | payer MEDICAID ==
[~2023-04-11] VITALS: Ht 175.3 cm; Wt 108.9 kg
[~2023-04-11 21:54] MED LIST changes: +CEPH500T PO; +MUPI22OI2 TP
[2023-04-12] MEDS ORDERED: IPRATROPIUM/ALBUTEROL SULFATE 3 ML SOLUTION IH ONE ×2 (00:30→02:00)
[2023-04-12] MEDS ORDERED: LEVAHFA IH (00:33)
[2023-04-12 01:05] LABS: RAPID GROUP A STREP negative (NEGATIVE)
[2023-04-12] MEDS ORDERED: AMOX1TAB16 PO (01:08)
[2023-04-12 01:11] LABS: SARS-CoV-2, RNA, NAAT NEGATIVE SARS CoV-2 (NEGATIVE)
[2023-04-12 01:16] LABS: INFLUENZA TYPE A Negative For Type A (NEGATIVE); INFLUENZA TYPE B Negative For Type B (NEGATIVE)
[2023-04-12] MEDS: PREDNISONE 20 MG TABLET ONE ×2 (01:48→01:49)
[2023-04-12] MEDS ORDERED: MAGNESIUM 2GM PREMIX 50ML 50 ML IV SCH (02:00)
[2023-04-12] MEDS ORDERED: SOLU-MEDROL 125MG VIAL IVP ONE (02:00)
[2023-04-12] MEDS ORDERED: PREDNISONE 20 MG TABLET PO ONE (02:00)
[2023-04-12 02:08] LABS: HEMATOCRIT 46.8 % (42-54); MEAN CORPUSCULAR HEMOGLOBIN 31.5 pg (27.0-33.0); MEAN CORPUSCULAR HGB CONC 35.7 g/dL (32.0-36.0); MEAN CORPUSCULAR VOLUME 88.1 fL (79-99); PLATELET COUNT (AUTO) 184 K/uL (130-400); RED BLOOD CELL COUNT(AUTO) 5.31 MIL/uL (4.50-6.20); RED CELL DISTRIBUTION WIDTH 12.6 % (11.0-15.5); WHITE BLOOD COUNT (AUTO) 14.7 K/uL (4.8-10.8)
[2023-04-12 02:17] LABS: BASOPHILS # (AUTO) 0.06 K/uL (0.00-0.20); BASOPHILS % (AUTO) 0.4 % (0.0-5.0); CREATININE 0.9 mg/dL (0.5-1.5); EOSINOPHILS # (AUTO) 0.14 K/uL (0.00-0.70); EOSINOPHILS % (AUTO) 0.9 % (0.0-8.0); IMMATURE GRANULOCYTE ABSOLUTE 0.07 K/uL (0-1); LYMPHOCYTES # (AUTO) 2.8 K/uL (1.0-4.8); LYMPHOCYTES % (AUTO) 18.8 % (21.0-51.0); MONOCYTES # (AUTO) 1.9 K/uL (0.1-1.0); MONOCYTES % (AUTO) 12.5 % (3.0-13.0); NEUTROPHILS % (AUTO) 66.9 % (40.0-77.0); POTASSIUM 3.8 mmol/L (3.5-5.1)
[2023-04-12 02:22] LABS: ALBUMIN 3.7 g/dL (3.5-5.0); BILIRUBIN,TOTAL 0.3 mg/dL (0.2-1.0); TOTAL PROTEIN, SERUM 7.4 g/dL (6.0-8.3)
[2023-04-12 02:53] VITALS: PULSE 100; RESP 20
[2023-04-12 02:55] VITALS: PULSE 97; RESP 20
[2023-04-12] MEDS ORDERED: PRED20TA3 PO (04:12)
[2023-04-12 05:24] VITALS: BP 118/70; PULSE 72; RESP 16; O2SAT 98
== END 2023-04-12 05:56 | disposition home or self-care (01) ==
LOC: EDH 21:54
DX: J01.90 Acute sinusitis, unspecified (principal); J44.1 Chronic obstructive pulmonary disease with (acute) exacerbation; F32.A Depression, unspecified; E11.9 Type 2 diabetes mellitus without complications; F20.9 Schizophrenia, unspecified; I10 Essential (primary) hypertension; Z79.4 Long term (current) use of insulin; Z79.84 Long term (current) use of oral hypoglycemic drugs; Z79.899 Other long term (current) drug therapy; Z20.822 Contact with and (suspected) exposure to COVID-19
CPT/HCPCS: 99285; 87635; 80053; 85025; 87880; 87804 ×2; 36415; 96365; 71045; 96366; 96375; 94640 ×2; C9803; J3475; J2930

== ENCOUNTER 2023-05-16 19:54 | Emergency (ER) | payer MEDICAID ==
[~2023-05-16 19:54] MED LIST changes: -ACET-2079 PO; -ACET-66 PO; +AMOX1TAB16 PO; -CEPH500T PO; -IBUP-2070 PO; -MUPI22OI2 TP; +PRED20TA3 PO
[2023-05-16 21:35] LABS: BASOPHILS # (AUTO) 0.07 K/uL (0.00-0.20); BASOPHILS % (AUTO) 0.5 % (0.0-5.0); EOSINOPHILS # (AUTO) 0.09 K/uL (0.00-0.70); EOSINOPHILS % (AUTO) 0.6 % (0.0-8.0); HEMATOCRIT 46.2 % (42-54); IMMATURE GRANULOCYTE ABSOLUTE 0.08 K/uL (0-1); LYMPHOCYTES # (AUTO) 3.1 K/uL (1.0-4.8); LYMPHOCYTES % (AUTO) 20.9 % (21.0-51.0); MEAN CORPUSCULAR HGB CONC 35.1 g/dL (32.0-36.0); MEAN CORPUSCULAR VOLUME 88.5 fL (79-99); MONOCYTES # (AUTO) 1.4 K/uL (0.1-1.0); MONOCYTES % (AUTO) 9.7 % (3.0-13.0); NEUTROPHILS % (AUTO) 67.8 % (40.0-77.0); PLATELET COUNT (AUTO) 188 K/uL (130-400); RED BLOOD CELL COUNT(AUTO) 5.22 MIL/uL (4.50-6.20); RED CELL DISTRIBUTION WIDTH 12.8 % (11.0-15.5); WHITE BLOOD COUNT (AUTO) 14.8 K/uL (4.8-10.8)
[2023-05-16] MEDS ORDERED: ALBU90AE2 IH (21:56)
[2023-05-16] MEDS ORDERED: AZIT500T2 PO (21:56)
[2023-05-16] MEDS ORDERED: PRED20TA3 PO (21:56)
[2023-05-16 22:05] LABS: CREATININE 0.8 mg/dL (0.5-1.5); POTASSIUM 3.7 mmol/L (3.5-5.1)
[2023-05-16 22:09] LABS: ALBUMIN 3.5 g/dL (3.5-5.0); BILIRUBIN,TOTAL 0.3 mg/dL (0.2-1.0)
[2023-05-16 22:23] LABS: SARS-CoV-2, RNA, NAAT POSITIVE SARS CoV-2 (NEGATIVE)
[2023-05-16 22:25] LABS: INFLUENZA TYPE A Negative For Type A (NEGATIVE); INFLUENZA TYPE B Negative For Type B (NEGATIVE)
[2023-05-16] MEDS ORDERED: NIRM1TAB PO (23:08)
[2023-05-16] MEDS ORDERED: IBUP-1493 PO (23:08)
[2023-05-16 23:15] VITALS: BP 124/78; PULSE 96; RESP 16; O2SAT 97
== END 2023-05-16 23:19 | disposition home or self-care (01) ==
LOC: EDH 19:54
DX: U07.1 COVID-19 (principal); J06.9 Acute upper respiratory infection, unspecified; I10 Essential (primary) hypertension; E11.9 Type 2 diabetes mellitus without complications; F32.A Depression, unspecified; F20.9 Schizophrenia, unspecified; Z79.84 Long term (current) use of oral hypoglycemic drugs; Z79.899 Other long term (current) drug therapy; Z98.890 Other specified postprocedural states
CPT/HCPCS: 36415; 71045; 80053; 85025; 87635; 87804

== ENCOUNTER 2023-06-20 10:48 | Emergency (ER) | payer MEDICAID ==
[~2023-06-20] VITALS: Ht 180.3 cm; Wt 113.4 kg
[~2023-06-20 10:48] MED LIST changes: -AMOX1TAB16 PO; +ASPI-1005 PO; +ATOR20TA65 PO; -BENZ2TAB70 PO; -BUPR100T13 PO; +CEPH500T PO; -CETI10CA5 PO; -DICL2100G TP; +DIVA500T69 PO; +EMPA10TA PO; -ESOM40CA PO; -FISH1CAP50 PO; +FLUO25PO10 MC; -FLUT16H NASAL; +FLUT50BL2 IH; -GLUC-172 PO; -HALOD100I IM; +HYDR50CA50 PO; -IBUP-2076 PO; +INSU100V12 SQ; -INSU10VI3 SQ; -LEVAHFA IH; +LISI2.5T13 PO; -LISI5TAB21 PO; +LORA10TA7 PO; +METO-408 PO; +OLAN20TA35 PO; -PRAV20TA4 PO; -PRED20TA3 PO; +SEMA0.258 SQ; -UBID100C10 PO; +VALB80CA PO; -metoprolol PO
[2023-06-20 11:31] LABS: BASOPHILS # (AUTO) 0.06 K/uL (0.00-0.20); BASOPHILS % (AUTO) 0.6 % (0.0-5.0); EOSINOPHILS # (AUTO) 0.07 K/uL (0.00-0.70); EOSINOPHILS % (AUTO) 0.7 % (0.0-8.0); HEMATOCRIT 48.8 % (42-54); IMMATURE GRANULOCYTE ABSOLUTE 0.09 K/uL (0-1); LYMPHOCYTES # (AUTO) 2.4 K/uL (1.0-4.8); LYMPHOCYTES % (AUTO) 22.3 % (21.0-51.0); MEAN CORPUSCULAR HEMOGLOBIN 30.8 pg (27.0-33.0); MEAN CORPUSCULAR VOLUME 87.9 fL (79-99); MONOCYTES # (AUTO) 1.2 K/uL (0.1-1.0); MONOCYTES % (AUTO) 10.9 % (3.0-13.0); NEUTROPHILS # (AUTO) 6.8 K/uL (1.8-7.7); NEUTROPHILS % (AUTO) 64.6 % (40.0-77.0); PLATELET COUNT (AUTO) 216 K/uL (130-400); RED BLOOD CELL COUNT(AUTO) 5.55 MIL/uL (4.50-6.20); WHITE BLOOD COUNT (AUTO) 10.6 K/uL (4.8-10.8)
[2023-06-20 11:49] LABS: ALBUMIN 4.1 g/dL (3.5-5.0); BILIRUBIN,TOTAL 0.4 mg/dL (0.2-1.0); CREATININE 0.8 mg/dL (0.5-1.5); TOTAL PROTEIN, SERUM 7.3 g/dL (6.0-8.3)
[2023-06-20] MEDS: 0.9%NACL 1000ML 1,000 ML IV ONE (11:53)
[2023-06-20] MEDS: KETOROLAC 30MG VIAL (30MG/ML) IVP ONE (11:54)
[2023-06-20 12:32] LABS: ADD UA MICROSCOPIC YES; APPEARANCE,URINE CLEAR (CLEAR); BILIRUBIN,URINE NEGATIVE (NEGATIVE); COLOR,URINE STRAW (YELLOW); GLUCOSE, URINE (UA) >=1000 mg/dL (NEGATIVE); KETONES,URINE NEGATIVE (NEGATIVE); LEUKOCYTE ESTERASE ,URINE NEGATIVE Leu/uL (NEGATIVE); NITRATE,URINE NEGATIVE (NEGATIVE); OCCULT BLOOD,URINE NEGATIVE (NEGATIVE); PROTEIN,URINE NEGATIVE (NEGATIVE); UROBILINOGEN,URINE 0.2 mg/dL (0.2-1.0)
[2023-06-20 12:33] LABS: RBC,URINE 0-1 /HPF (0-1); SQUAMOUS EPITHELIAL CELL,UR RARE /HPF (0-2); WBC,URINE 0-1 /HPF (0-1)
[2023-06-20] MEDS: ZOSYN 3.375GM +NS 50ML IVPB ONE (12:52)
[2023-06-20] MEDS: LACTATED RINGERS 1000ML 1,000 ML IV ONE (12:53)
[2023-06-20 15:13] VITALS: BP 137/78; PULSE 87; RESP 18; O2SAT 100
== END 2023-06-20 15:13 | disposition home or self-care (01) ==
LOC: EDH 10:48
DX: R10.9 Unspecified abdominal pain (principal); R31.9 Hematuria, unspecified; E11.65 Type 2 diabetes mellitus with hyperglycemia; R79.89 Other specified abnormal findings of blood chemistry; E78.00 Pure hypercholesterolemia, unspecified; F41.9 Anxiety disorder, unspecified; I10 Essential (primary) hypertension; Z79.1 Long term (current) use of non-steroidal anti-inflammatories (NSAID); Z79.4 Long term (current) use of insulin; Z79.82 Long term (current) use of aspirin; Z79.84 Long term (current) use of oral hypoglycemic drugs; Z79.899 Other long term (current) drug therapy
CPT/HCPCS: 99285; 74176; 96365; 96361; 96375; 80053; 83690; 85025; 87040 ×2; 83605 ×2; 81001; 36415; J7120; J7030; J1885; J2543

== ENCOUNTER 2023-07-17 18:20 | Emergency (ER) | payer MEDICAID ==
[~2023-07-17] VITALS: Ht 185.4 cm; Wt 113.4 kg
[2023-07-17 18:54] LABS: ADD UA MICROSCOPIC YES; APPEARANCE,URINE CLEAR (CLEAR); BILIRUBIN,URINE NEGATIVE (NEGATIVE); COLOR,URINE COLORLESS (YELLOW); GLUCOSE, URINE (UA) >=1000 mg/dL (NEGATIVE); KETONES,URINE NEGATIVE (NEGATIVE); LEUKOCYTE ESTERASE ,URINE NEGATIVE Leu/uL (NEGATIVE); NITRATE,URINE NEGATIVE (NEGATIVE); OCCULT BLOOD,URINE NEGATIVE (NEGATIVE); PROTEIN,URINE NEGATIVE (NEGATIVE); UROBILINOGEN,URINE 0.2 mg/dL (0.2-1.0)
[2023-07-17 18:57] LABS: AMPHET/METH SCREEN,URINE NEGATIVE (NEGATIVE); BARBITURATE SCREEN, URINE NEGATIVE (NEGATIVE); BENZODIAZEPINES SCREEN,URINE NEGATIVE (NEGATIVE); CANNABINOID SCREEN,URINE NEGATIVE (NEGATIVE); COCAINE SCREEN,URINE NEGATIVE (NEGATIVE); OPIATE SCREEN,URINE NEGATIVE (NEGATIVE); PHENCYCLIDINE SCREEN,URINE NEGATIVE (NEGATIVE)
[2023-07-17 19:00] LABS: BACTERIA,URINE RARE /HPF (None Seen); SQUAMOUS EPITHELIAL CELL,UR RARE /HPF (0-2); WBC,URINE 0-1 /HPF (0-1)
[2023-07-17 19:23] LABS: BASOPHILS # (AUTO) 0.05 K/uL (0.00-0.20); BASOPHILS % (AUTO) 0.3 % (0.0-5.0); EOSINOPHILS # (AUTO) 0.07 K/uL (0.00-0.70); EOSINOPHILS % (AUTO) 0.4 % (0.0-8.0); HEMATOCRIT 45.3 % (42-54); IMMATURE GRANULOCYTE ABSOLUTE 0.08 K/uL (0-1); LYMPHOCYTES # (AUTO) 2.3 K/uL (1.0-4.8); LYMPHOCYTES % (AUTO) 12.1 % (21.0-51.0); MEAN CORPUSCULAR HEMOGLOBIN 30.7 pg (27.0-33.0); MEAN CORPUSCULAR HGB CONC 35.5 g/dL (32.0-36.0); MEAN CORPUSCULAR VOLUME 86.5 fL (79-99); MONOCYTES # (AUTO) 1.4 K/uL (0.1-1.0); MONOCYTES % (AUTO) 7.3 % (3.0-13.0); NEUTROPHILS # (AUTO) 14.9 K/uL (1.8-7.7); NEUTROPHILS % (AUTO) 79.5 % (40.0-77.0); PLATELET COUNT (AUTO) 187 K/uL (130-400); RED BLOOD CELL COUNT(AUTO) 5.24 MIL/uL (4.50-6.20); RED CELL DISTRIBUTION WIDTH 12.6 % (11.0-15.5); WHITE BLOOD COUNT (AUTO) 18.7 K/uL (4.8-10.8)
[2023-07-17 19:34] LABS: CARBON DIOXIDE 28 mmol/L (21-32); CHLORIDE 94 mmol/L (101-111); CREATININE 0.7 mg/dL (0.5-1.3); GLOMERULAR FILTR. RATE CALC 117 mL/min (>90); GLUCOSE,RANDOM 177 mg/dL (70-105); POTASSIUM 3.6 mmol/L (3.5-5.1); SODIUM SERUM 129 mmol/L (136-145); UREA NITROGEN, BLOOD 12 mg/dL (7-18)
[2023-07-17 19:38] LABS: ALANINE AMINOTRANSFERASE 33 U/L (12-78); ALBUMIN 3.6 g/dL (3.5-5.0); ALCOHOL, BLOOD < 3 mg/dL (0-10); ASPARTATE AMINOTRANSFERASE 16 U/L (10-37); BILIRUBIN,TOTAL 0.4 mg/dL (0.2-1.0); SALICYLATE 2.8 mg/dL (2.8-20.0); TOTAL PROTEIN, SERUM 6.9 g/dL (6.0-8.3)
[2023-07-17 19:39] LABS: ACETAMINOPHEN < 1 mcg/mL (10-29)
[2023-07-17] MEDS: ACETAMINOPHEN 325 MG TAB ONE (20:50)
[2023-07-17] MEDS: ACETAMINOPHEN 325 MG TAB PO ONE (20:50)
[2023-07-17 23:50] VITALS: BP 136/72; PULSE 84; RESP 20; O2SAT 98
== END 2023-07-17 23:54 | disposition home or self-care (01) ==
LOC: EDH 18:20
DX: F32.A Depression, unspecified (principal); R45.851 Suicidal ideations; E11.65 Type 2 diabetes mellitus with hyperglycemia; F41.9 Anxiety disorder, unspecified; I10 Essential (primary) hypertension; F17.200 Nicotine dependence, unspecified, uncomplicated; Z79.82 Long term (current) use of aspirin; Z79.84 Long term (current) use of oral hypoglycemic drugs; Z79.899 Other long term (current) drug therapy
CPT/HCPCS: 99284; 80053; 80305; 85025; 81001; 36415; G0481

== ENCOUNTER 2023-07-27 17:06 | Emergency (ER) | payer MEDICAID ==
[~2023-07-27] VITALS: Ht 180.3 cm; Wt 122.5 kg
[2023-07-27 17:37] LABS: APPEARANCE,URINE CLEAR (CLEAR); BILIRUBIN,URINE NEGATIVE (NEGATIVE); COLOR,URINE COLORLESS (YELLOW); GLUCOSE, URINE (UA) >=1000 mg/dL (NEGATIVE); KETONES,URINE NEGATIVE (NEGATIVE); LEUKOCYTE ESTERASE ,URINE NEGATIVE Leu/uL (NEGATIVE); NITRATE,URINE NEGATIVE (NEGATIVE); OCCULT BLOOD,URINE NEGATIVE (NEGATIVE); PROTEIN,URINE NEGATIVE (NEGATIVE); UROBILINOGEN,URINE 0.2 mg/dL (0.2-1.0)
[2023-07-27 17:39] LABS: ADD UA MICROSCOPIC YES
[2023-07-27 17:41] LABS: MUCUS,URINE RARE LPF (None Seen); RBC,URINE 0-1 /HPF (0-1); SQUAMOUS EPITHELIAL CELL,UR RARE /HPF (0-2); WBC,URINE 0-1 /HPF (0-1)
[2023-07-27] MEDS: METOCLOPRAMIDE 10 MG/2 ML VIAL IVP ONE (18:26)
[2023-07-27] MEDS: 0.9%NACL 1000ML 1,000 ML IV ONE (18:26)
[2023-07-27] MEDS: FAMOTIDINE 20MG VIAL IV ONE (18:27)
[2023-07-27] MEDS ORDERED: FAMO20TA8 PO (19:14)
[2023-07-27 19:18] VITALS: BP 118/69; PULSE 88; RESP 18; O2SAT 100
== END 2023-07-27 19:23 | disposition home or self-care (01) ==
LOC: EDH 17:06
DX: N39.0 Urinary tract infection, site not specified (principal); K29.00 Acute gastritis without bleeding; E78.00 Pure hypercholesterolemia, unspecified; I10 Essential (primary) hypertension; F17.200 Nicotine dependence, unspecified, uncomplicated; Z79.82 Long term (current) use of aspirin; Z79.84 Long term (current) use of oral hypoglycemic drugs; Z79.899 Other long term (current) drug therapy
CPT/HCPCS: 99284; 96374; 96361; 96375; 81001; J7030; J2765; S0028; J3490

== ENCOUNTER 2023-09-04 18:25 | Emergency (ER) | payer MEDICAID ==
[~2023-09-04] VITALS: Ht 180.3 cm; Wt 117.9 kg
[~2023-09-04 18:25] MED LIST changes: +FAMO20TA8 PO
[2023-09-04] MEDS: KETOROLAC 30MG VIAL (30MG/ML) IVP ONE (19:44)
[2023-09-04 19:54] LABS: BASOPHILS # (AUTO) 0.06 K/uL (0.00-0.20); BASOPHILS % (AUTO) 0.5 % (0.0-5.0); EOSINOPHILS # (AUTO) 0.05 K/uL (0.00-0.70); EOSINOPHILS % (AUTO) 0.4 % (0.0-8.0); HEMATOCRIT 47.3 % (42-54); IMMATURE GRANULOCYTE ABSOLUTE 0.06 K/uL (0-1); LYMPHOCYTES # (AUTO) 2.6 K/uL (1.0-4.8); MEAN CORPUSCULAR HEMOGLOBIN 30.3 pg (27.0-33.0); MEAN CORPUSCULAR HGB CONC 34.9 g/dL (32.0-36.0); MEAN CORPUSCULAR VOLUME 86.8 fL (79-99); MONOCYTES # (AUTO) 1.4 K/uL (0.1-1.0); MONOCYTES % (AUTO) 11.2 % (3.0-13.0); NEUTROPHILS # (AUTO) 8.4 K/uL (1.8-7.7); NEUTROPHILS % (AUTO) 66.4 % (40.0-77.0); PLATELET COUNT (AUTO) 171 K/uL (130-400); RED BLOOD CELL COUNT(AUTO) 5.45 MIL/uL (4.50-6.20); RED CELL DISTRIBUTION WIDTH 13.2 % (11.0-15.5); WHITE BLOOD COUNT (AUTO) 12.6 K/uL (4.8-10.8)
[2023-09-04 20:04] LABS: INR <= 0.93 (0.85-1.15); PROTHROMBIN TIME 10.7 SEC (9.6-11.6)
[2023-09-04 20:05] LABS: PARTIAL THROMBOPLASTIN TIME 27.1 SEC (26.3-35.5)
[2023-09-04 20:12] LABS: CREATININE 0.8 mg/dL (0.5-1.3)
[2023-09-04 20:17] LABS: ALBUMIN 3.8 g/dL (3.5-5.0); BILIRUBIN,TOTAL 0.3 mg/dL (0.2-1.0); TOTAL PROTEIN, SERUM 7.5 g/dL (6.0-8.3)
[2023-09-04 20:21] LABS: APPEARANCE,URINE CLEAR (CLEAR); BILIRUBIN,URINE NEGATIVE (NEGATIVE); COLOR,URINE COLORLESS (YELLOW); GLUCOSE, URINE (UA) >=1000 mg/dL (NEGATIVE); KETONES,URINE NEGATIVE (NEGATIVE); LEUKOCYTE ESTERASE ,URINE NEGATIVE Leu/uL (NEGATIVE); NITRATE,URINE NEGATIVE (NEGATIVE); OCCULT BLOOD,URINE NEGATIVE (NEGATIVE); PROTEIN,URINE NEGATIVE (NEGATIVE); UROBILINOGEN,URINE 0.2 mg/dL (0.2-1.0)
[2023-09-04 20:22] LABS: ADD UA MICROSCOPIC YES
[2023-09-04 21:04] LABS: RBC,URINE 0-1 /HPF (0-1); WBC,URINE 0-1 /HPF (0-1)
[2023-09-04 21:13] VITALS: BP 126/78; PULSE 98; RESP 18; O2SAT 98
== END 2023-09-04 21:15 | disposition home or self-care (01) ==
LOC: EDH 18:25
DX: R42 Dizziness and giddiness (principal); R53.1 Weakness; D69.6 Thrombocytopenia, unspecified; I10 Essential (primary) hypertension; E11.9 Type 2 diabetes mellitus without complications; E78.00 Pure hypercholesterolemia, unspecified; F17.200 Nicotine dependence, unspecified, uncomplicated; Z79.82 Long term (current) use of aspirin; Z79.84 Long term (current) use of oral hypoglycemic drugs; Z79.899 Other long term (current) drug therapy; Z98.890 Other specified postprocedural states
CPT/HCPCS: 99284; 96374; 82550; 80053; 83690; 85025; 85610; 85730; 81001; 36415; 73562; J1885

== ENCOUNTER 2023-11-02 14:30 | Emergency (ER) | payer MEDICAID ==
[~2023-11-02] VITALS: Ht 182.9 cm; Wt 99.8 kg
[~2023-11-02 14:30] MED LIST changes: -OLAN20TA35 PO; +OLAN20TA82 PO
[2023-11-02 15:23] LABS: ADD UA MICROSCOPIC YES; APPEARANCE,URINE CLEAR (CLEAR); BILIRUBIN,URINE NEGATIVE (NEGATIVE); COLOR,URINE LIGHT-YELLOW (YELLOW); LEUKOCYTE ESTERASE ,URINE NEGATIVE Leu/uL (NEGATIVE); NITRATE,URINE NEGATIVE (NEGATIVE); OCCULT BLOOD,URINE NEGATIVE (NEGATIVE); PH,URINE 6.5 (5.0-8.0); PROTEIN,URINE NEGATIVE (NEGATIVE); UROBILINOGEN,URINE 0.2 mg/dL (0.2-1.0)
[2023-11-02 15:25] LABS: BASOPHILS # (AUTO) 0.05 K/uL (0.00-0.20); BASOPHILS % (AUTO) 0.5 % (0.0-5.0); EOSINOPHILS # (AUTO) 0.07 K/uL (0.00-0.70); EOSINOPHILS % (AUTO) 0.7 % (0.0-8.0); HEMATOCRIT 46.4 % (42-54); IMMATURE GRANULOCYTE ABSOLUTE 0.04 K/uL (0-1); LYMPHOCYTES # (AUTO) 2.5 K/uL (1.0-4.8); LYMPHOCYTES % (AUTO) 23.6 % (21.0-51.0); MEAN CORPUSCULAR HEMOGLOBIN 31.1 pg (27.0-33.0); MEAN CORPUSCULAR HGB CONC 35.1 g/dL (32.0-36.0); MEAN CORPUSCULAR VOLUME 88.5 fL (79-99); MONOCYTES # (AUTO) 1.2 K/uL (0.1-1.0); MONOCYTES % (AUTO) 11.3 % (3.0-13.0); NEUTROPHILS # (AUTO) 6.6 K/uL (1.8-7.7); NEUTROPHILS % (AUTO) 63.5 % (40.0-77.0); PLATELET COUNT (AUTO) 197 K/uL (130-400); RED BLOOD CELL COUNT(AUTO) 5.24 MIL/uL (4.50-6.20); RED CELL DISTRIBUTION WIDTH 13.4 % (11.0-15.5); WHITE BLOOD COUNT (AUTO) 10.4 K/uL (4.8-10.8)
[2023-11-02 15:26] LABS: MUCUS,URINE RARE LPF (None Seen); RBC,URINE 0-1 /HPF (0-1); SQUAMOUS EPITHELIAL CELL,UR FEW /HPF (0-2); WBC,URINE 0-1 /HPF (0-1)
[2023-11-02 15:27] LABS: GLUCOSE, URINE (UA) >=1000 mg/dL (NEGATIVE); KETONES,URINE 5 mg/dL (NEGATIVE)
[2023-11-02 15:35] LABS: INR 1.05 (0.85-1.15); PROTHROMBIN TIME 11.3 SEC (9.6-11.6)
[2023-11-02 15:36] LABS: CREATININE 0.9 mg/dL (0.5-1.3); POTASSIUM 4.1 mmol/L (3.5-5.1)
[2023-11-02 15:37] LABS: PARTIAL THROMBOPLASTIN TIME 27.8 SEC (26.3-35.5)
[2023-11-02 15:40] LABS: ALBUMIN 3.7 g/dL (3.5-5.0); BILIRUBIN,TOTAL 0.4 mg/dL (0.2-1.0); TOTAL PROTEIN, SERUM 7.2 g/dL (6.0-8.3)
[2023-11-02] MEDS ORDERED: HYDR25SU7 RC (16:05)
[2023-11-02 16:07] VITALS: BP 121/75; PULSE 90; RESP 17; O2SAT 99
== END 2023-11-02 16:21 | disposition home or self-care (01) ==
LOC: EDH 14:30
DX: K64.8 Other hemorrhoids (principal); E11.65 Type 2 diabetes mellitus with hyperglycemia; K59.00 Constipation, unspecified; E78.00 Pure hypercholesterolemia, unspecified; I10 Essential (primary) hypertension; F17.200 Nicotine dependence, unspecified, uncomplicated; Z79.82 Long term (current) use of aspirin; Z79.84 Long term (current) use of oral hypoglycemic drugs; Z79.899 Other long term (current) drug therapy
CPT/HCPCS: 36415; 80053; 81001; 85025; 85610; 85730; 86850; 86900; 86901

== ENCOUNTER 2024-01-16 15:53 | Emergency (ER) | payer MEDICAID ==
[~2024-01-16] VITALS: Ht 180.3 cm; Wt 101.6 kg
[~2024-01-16 15:53] MED LIST changes: +HYDR25SU7 RC
[2024-01-16 16:25] VITALS: BP 120/84; PULSE 118; RESP 18; TEMP 98.6; O2SAT 97
[2024-01-16 16:44] LABS: APPEARANCE,URINE CLEAR (CLEAR); BILIRUBIN,URINE NEGATIVE (NEGATIVE); COLOR,URINE COLORLESS (YELLOW); GLUCOSE, URINE (UA) >=1000 mg/dL (NEGATIVE); KETONES,URINE NEGATIVE (NEGATIVE); LEUKOCYTE ESTERASE ,URINE 75 Leu/uL (NEGATIVE); NITRATE,URINE NEGATIVE (NEGATIVE); OCCULT BLOOD,URINE SMALL (NEGATIVE); PH,URINE 6.5 (5.0-8.0); PROTEIN,URINE NEGATIVE (NEGATIVE); UROBILINOGEN,URINE 0.2 mg/dL (0.2-1.0)
[2024-01-16 16:45] LABS: ADD UA MICROSCOPIC YES
[2024-01-16 16:46] LABS: BACTERIA,URINE RARE /HPF (None Seen); RBC,URINE 0-1 /HPF (0-1)
[2024-01-16 17:25] LABS: BASOPHILS # (AUTO) 0.05 K/uL (0.00-0.20); BASOPHILS % (AUTO) 0.5 % (0.0-5.0); EOSINOPHILS # (AUTO) 0.03 K/uL (0.00-0.70); EOSINOPHILS % (AUTO) 0.3 % (0.0-8.0); HEMATOCRIT 46.6 % (42-54); IMMATURE GRANULOCYTE ABSOLUTE 0.11 K/uL (0-1); LYMPHOCYTES % (AUTO) 19.3 % (21.0-51.0); MEAN CORPUSCULAR HEMOGLOBIN 30.5 pg (27.0-33.0); MEAN CORPUSCULAR HGB CONC 34.8 g/dL (32.0-36.0); MEAN CORPUSCULAR VOLUME 87.8 fL (79-99); MONOCYTES # (AUTO) 1.7 K/uL (0.1-1.0); MONOCYTES % (AUTO) 16.5 % (3.0-13.0); NEUTROPHILS # (AUTO) 6.5 K/uL (1.8-7.7); NEUTROPHILS % (AUTO) 62.3 % (40.0-77.0); PLATELET COUNT (AUTO) 214 K/uL (130-400); RED BLOOD CELL COUNT(AUTO) 5.31 MIL/uL (4.50-6.20); WHITE BLOOD COUNT (AUTO) 10.4 K/uL (4.8-10.8)
[2024-01-16] MEDS: 0.9%NACL 1000ML 1,000 ML IV SCH (17:26)
[2024-01-16] MEDS: ketOROlac 15MG/ML VIAL (15MG/ML) IV SCH (17:27)
[2024-01-16 17:42] LABS: CREATININE 0.8 mg/dL (0.5-1.3); POTASSIUM 3.4 mmol/L (3.5-5.1)
[2024-01-16 17:46] LABS: ALBUMIN 3.5 g/dL (3.5-5.0); BILIRUBIN,TOTAL 0.3 mg/dL (0.2-1.0); TOTAL PROTEIN, SERUM 8.3 g/dL (6.0-8.3)
[2024-01-16] MEDS ORDERED: PHEN-847 PO (18:12)
[2024-01-16] MEDS ORDERED: KETO10 PO (18:12)
== END 2024-01-16 18:38 | disposition home or self-care (01) ==
LOC: EDH 15:53
DX: R10.84 Generalized abdominal pain (principal); R30.9 Painful micturition, unspecified; E11.9 Type 2 diabetes mellitus without complications; E78.00 Pure hypercholesterolemia, unspecified; I10 Essential (primary) hypertension; F17.200 Nicotine dependence, unspecified, uncomplicated; Z79.82 Long term (current) use of aspirin; Z79.84 Long term (current) use of oral hypoglycemic drugs; Z79.85 Long-term (current) use of injectable non-insulin antidiabetic drugs; Z79.899 Other long term (current) drug therapy; Z90.49 Acquired absence of other specified parts of digestive tract; Z98.890 Other specified postprocedural states
CPT/HCPCS: 99283; 96374; 80053; 85025; 87086 ×2; 87186; 81001; 36415; J7030; J1885

== ENCOUNTER 2024-02-07 17:51 | Emergency (ER) | payer MEDICAID ==
[~2024-02-07] VITALS: Ht 177.8 cm; Wt 90.7 kg
[~2024-02-07 17:51] MED LIST changes: +KETO10 PO; +PHEN-847 PO
[2024-02-07 18:19] LABS: ADD UA MICROSCOPIC YES; APPEARANCE,URINE CLEAR (CLEAR); BILIRUBIN,URINE NEGATIVE (NEGATIVE); COLOR,URINE COLORLESS (YELLOW); GLUCOSE, URINE (UA) >=1000 mg/dL (NEGATIVE); KETONES,URINE NEGATIVE (NEGATIVE); LEUKOCYTE ESTERASE ,URINE NEGATIVE Leu/uL (NEGATIVE); NITRATE,URINE NEGATIVE (NEGATIVE); OCCULT BLOOD,URINE NEGATIVE (NEGATIVE); PROTEIN,URINE NEGATIVE (NEGATIVE); UROBILINOGEN,URINE 0.2 mg/dL (0.2-1.0)
[2024-02-07 18:20] LABS: RBC,URINE 0-1 /HPF (0-1); WBC,URINE 0-1 /HPF (0-1)
[2024-02-07] MEDS: ketOROlac 15MG/ML VIAL (15MG/ML) IV STA (18:29)
[2024-02-07 18:40] LABS: BASOPHILS # (AUTO) 0.04 K/uL (0.00-0.20); BASOPHILS % (AUTO) 0.4 % (0.0-5.0); EOSINOPHILS # (AUTO) 0.09 K/uL (0.00-0.70); EOSINOPHILS % (AUTO) 0.8 % (0.0-8.0); HEMATOCRIT 40.5 % (42-54); IMMATURE GRANULOCYTE ABSOLUTE 0.04 K/uL (0-1); LYMPHOCYTES # (AUTO) 2.9 K/uL (1.0-4.8); MEAN CORPUSCULAR HGB CONC 34.8 g/dL (32.0-36.0); MONOCYTES % (AUTO) 9.3 % (3.0-13.0); NEUTROPHILS # (AUTO) 7.1 K/uL (1.8-7.7); NEUTROPHILS % (AUTO) 63.1 % (40.0-77.0); PLATELET COUNT (AUTO) 172 K/uL (130-400); RED BLOOD CELL COUNT(AUTO) 4.55 MIL/uL (4.50-6.20); RED CELL DISTRIBUTION WIDTH 13.2 % (11.0-15.5); WHITE BLOOD COUNT (AUTO) 11.2 K/uL (4.8-10.8)
--- NOTE | 2024-02-07 18:46 | HMCIMG ---
CT ABDOMEN WITHOUT CONTRAST. CT PELVIS WITHOUT CONTRAST. INDICATION: Bilateral flank pain TECHNIQUE: Routine transaxial imaging using 5 mm slice thickness through the abdomen and pelvis without the administration of IV contrast. Thin slice reconstructions are also provided. Coronal and sagittal reformatted images acquired for interpretation. CT was performed with one or more of the following dose reduction techniques: Automated exposure control, adjustment of the mA and/or kV according to patient size, or use of iterative reconstruction technique. COMPARISON: None FINDINGS: ON NONCONTRAST IMAGING: ABDOMEN: Heart size is normal. Visible lung bases are clear. No abnormal renal calcifications, hydronephrosis, perinephric inflammation, or proximal hydroureter detected. The liver is normal in size and smooth in contour without biliary duct dilation. The spleen is normal in size and attenuation. The gallbladder is absent. The pancreas appears normal without pancreatic duct dilation. The adrenal glands appear normal. No significant abdominal, retrocrural or retroperitoneal adenopathy noted. No evidence for intra-abdominal free air or organized fluid collection. No aortic aneurysmal dilation identified. PELVIS: No abnormal calcifications within the urinary bladder or distal ureters. No evidence for free air or organized pelvic fluid collection. No significant pelvic adenopathy detected. Extensive stool burden. Terminal ileum appears unremarkable. The appendix is absent. Visible osseous structures are intact. IMPRESSION: Constipation without evidence for any acute intra-abdominal or pelvic process, including no evidence for urolithiasis.
[2024-02-07 18:56] LABS: CREATININE 0.9 mg/dL (0.5-1.3); POTASSIUM 3.5 mmol/L (3.5-5.1)
[2024-02-07 19:00] LABS: ALBUMIN 3.2 g/dL (3.5-5.0); BILIRUBIN,TOTAL 0.3 mg/dL (0.2-1.0)
[2024-02-07] MEDS ORDERED: LACT20PA6 PO (19:08)
--- NOTE | 2024-02-07 19:09 | ERN ---
ED Note History of Present Illness Stated Complaint: HYPERGLYCEMIA Chief Complaint: Hyperglycemia Time Seen by MD: 17:53 Time Seen by Midlevel: 17:58 Dictation: 43-year-old male coming in complaining of bilateral flank pain that has been going on for a month. Denies having any fevers, nausea, vomiting. Patient does have a history of hypertension, diabetes, cholesterol. Allergies: Coded Allergies: No Known Drug Allergies (Verified Allergy, Unknown, 09/14/15) Home Meds Active Scripts Phenazopyridine HCl (Pyridium) 200 Mg Tab, 200 MG PO TID for 5 Days, #15 TAB Prov:ANTONINO BUNCH MD 01/16/24 Ketorolac Tromethamine (Toradol) 10 Mg Tab, 10 MG PO TIDP for 5 Days, #15 TAB Prov:ANTONINO BUNCH MD 01/16/24 Hydrocortisone Acetate (Hydrocortisone Acetate) 25 Mg Supp.rect, 25 MG RC BID for 7 Days, #1 EA Prov:TRISTIN LOBATO SINTERING PLANT SUPERVISOR 11/02/23 Famotidine (Famotidine) 20 Mg Tablet, 20 MG PO BID for 14 Days, #28 TAB Prov:ARTURO GARVIN DISTRICT ASSOCIATE JUDGE 07/27/23 Cephalexin (Cephalexin) 500 Mg Tablet, 500 MG PO BID, #14 TAB 0 Refills Prov:SANCHO SIEGEL AGPCNP 06/14/23 Reported Medications Fluticasone Propionate (Fluticasone Propionate) 50 Mcg Blst.w.dev, 50 MCG IH BID 06/13/23 Semaglutide (Ozempic) 0.25 Mg/0.368 Ml Pen.injctr, 0.5 MG SQ QWEEK 06/13/23 Aspirin (ASPIRIN 81MG CHEW TAB) 81 Mg Tab.chew, 81 MG PO DAILY, TAB.CHEW 06/13/23 Loratadine (Loratadine) 10 Mg Tablet, 10 MG PO DAILY, TAB 06/13/23 Valbenazine Tosylate (Ingrezza) 80 Mg Capsule, 80 MG PO HS, CAP 06/13/23 Hydroxyzine Pamoate (Hydroxyzine Pamoate) 50 Mg Capsule, 50 MG PO BID PRN for ANXIETY/AGITATION, CAP 06/13/23 Trazodone HCl (Trazodone HCl) 150 Mg Tablet, 150 MG PO HS, TAB 2/20/24 Olanzapine (Olanzapine) 20 Mg Tablet, 20 MG PO HS, TAB 06/13/23 Fluoxetine (Fluoxetine HCl) 100 % Powder, 20 GM MC DAILY, APPL 06/13/23 Divalproex Sodium (Depakote ER) 500 Mg Tab.er.24h, 500 MG PO BID, TAB 06/13/23 Atorvastatin Calcium (Atorvastatin Calcium) 20 Mg Tablet, 20 MG PO DAILY, TAB 06/13/23 Insulin Detemir (Levemir) 100 Unit/Ml Vial, 20 UNIT SQ HS, VIAL 06/13/23 Empagliflozin (Jardiance) 10 Mg Tablet, 10 MG PO DAILY, TAB 06/13/23 Metformin HCl (Metformin HCl) 1,000 Mg Tablet, 1000 MG PO BID, TAB 06/13/23 Metoprolol Succinate (Metoprolol Succinate) 25 Mg Tab.er.24h, 25 MG PO HS, TAB 06/13/23 Lisinopril (Lisinopril) 2.5 Mg Tablet, 2.5 MG PO DAILY, TAB 06/13/23 Paliperidone Palmitate (Invega Sustenna) 234 Mg/1.5 Ml Disp.syrin, 234 MG IM MONTHLY, DIS.SYR 09/14/15 Past Medical History Past Medical History: Diabetes-Type II, High Cholesterol, Hypertension Surgical History: Appendectomy Surgical History Other: INTESTINAL SX Family History: Negative Social History: Smokers, ETOH, Negative, Lives with family, Other Review of System Dictation Constitutional: Negative for fever,chills, and weight loss Eyes: Negative for injury, pain,redness, and discharge ENT: Negative for injury,pain or swelling Cardiovascular: Negative for chest pain, palpitations, and edema Respiratory: Negative for shortness of breath, cough, and wheezing, Abdomen/GI: Negative for abdominal pain, nausea, vomiting, diarrhea, and constipation Back: Bilateral flank pain : Negative for injury, bleeding and discharge MS/Extremity: Negative for injury and deformity Skin: Negative for rash, and discoloration Neuro: Negative for headache, weakness, numbness, tingling, and seizure Psych: Negative for suicide ideation, homicidal ideation, and hallucinations Review of Systems: was completed Initial Vital Sign VS Vital Signs Date Time Temp Pulse Resp B/P (MAP) Pulse Ox O2 Delivery O2 Flow Rate FiO2 02/07/24 17:53 99.0 104 20 141/86 99 Room Air Physical Exam Dictation General: awake, alert, NAD Head/Face: Normocephalic, atraumatic Eyes: PERRL, EOMI, vision at baseline ENT: oral cavity clear, TMs clear, no signs of infection Neck: Trachea midline, supple, no nuchal rigidity Cardiovascular: RRR, normal S1/S2, No MRGs, no JVD Respiratory: CTAB, no respiratory distress, No rales or wheezes Abdomen: Soft, non-tender, non-distended, normal bowel sounds, no guarding or rebound. Skin: Warm, dry, normal turgor, no rash MS/Extremity: Pulses equal, no cyanosis, neurovascular intact, FROM Neuro: COAx4, GCS 15, strength 5/5, CN 2-12 intact, normal cerebellar exam, normal gait, Psych: Normal behavior, mood, and affect normal Results (Laboratory/Radiology) Laboratory/Radiology Laboratory Tests Test 02/07/24 18:03 02/07/24 18:25 Urine Color COLORLESS (YELLOW) Urine Appearance CLEAR (CLEAR) Urine pH 6.0 (5.0-8.0) Urine Specific [place] 1.002 (1.001-1.031) Urine Protein NEGATIVE mg/dL (NEGATIVE) Urine Glucose (UA) >=1000 mg/dL (NEGATIVE) H Urine Ketones NEGATIVE mg/dL (NEGATIVE) Urine Occult Blood NEGATIVE (NEGATIVE) Urine Nitrate NEGATIVE (NEGATIVE) Urine Bilirubin NEGATIVE mg/dL (NEGATIVE) Urine Urobilinogen 0.2 mg/dL (0.2-1.0) Urine Leukocyte Esterase NEGATIVE Joshua/uL Urine RBC 0-1 /HPF (0-1) Urine WBC 0-1 /HPF (0-1) Urine Bacteria None /HPF (None Seen) White Blood Count 11.2 K/uL (4.8-10.8) H Red Blood Count 4.55 MIL/uL (4.50-6.20) Hemoglobin 14.1 g/dL (14.0-18.0) Hematocrit 40.5 % (42-54) L Mean Corpuscular Volume 89.0 fL (79-99) Mean Corpuscular Hemoglobin 31.0 pg (27.0-33.0) Mean Corpuscular Hemoglobin Concent 34.8 g/dL (32.0-36.0) Red Cell Distribution Width 13.2 % (11.0-15.5) Platelet Count 172 K/uL (130-400) Mean Platelet Volume 11.2 fL (7.5-10.5) H Immature Granulocyte % (Auto) 0.4 % (0-1) Neutrophils (%) (Auto) 63.1 % (40.0-77.0) Lymphocytes (%) (Auto) 26.0 % (21.0-51.0) Monocytes (%) (Auto) 9.3 % (3.0-13.0) Eosinophils (%) (Auto) 0.8 % (0.0-8.0) Basophils (%) (Auto) 0.4 % (0.0-5.0) Neutrophils # (Auto) 7.1 K/uL (1.8-7.7) Lymphocytes # (Auto) 2.9 K/uL (1.0-4.8) Monocytes # (Auto) 1.0 K/uL (0.1-1.0) Eosinophils # (Auto) 0.09 K/uL (0.00-0.70) Basophils # (Auto) 0.04 K/uL (0.00-0.20) Absolute Immature Granulocyte (auto 0.04 K/uL (0-1) Nucleated Red Blood Cells 0.0 % (0.0-0.19) Sodium Level 139 mmol/L (136-145) Potassium Level 3.5 mmol/L (3.5-5.1) Chloride Level 101 mmol/L (101-111) Carbon Dioxide Level 31 mmol/L (21-32) Blood Urea Nitrogen 10 mg/dL (7-18) Creatinine 0.9 mg/dL (0.5-1.3) Glomerular Filtration Rate Calc 109 mL/min (>90) Random Glucose 271 mg/dL (70-105) H Total Calcium 9.1 mg/dL (8.5-10.1) Total Bilirubin 0.3 mg/dL (0.2-1.0) Aspartate Amino Transf (AST/SGOT) 9 U/L (10-37) L Alanine Aminotransferase (ALT/SGPT) 29 U/L (12-78) Alkaline Phosphatase 97 U/L (50-136) Total Protein 7.0 g/dL (6.0-8.3) Albumin 3.2 g/dL (3.5-5.0) L ED Course ED Course Orders Procedure Category Date Status Time Urinalysis Profile LAB 02/07/24 Complete 18:04 Cbc With Differential LAB 02/07/24 Complete 18:14 Comprehensive LAB 02/07/24 Complete Metabolic Panel 18:14 12 Lead Ekg Tracing- EKG 02/07/24 Logged Technical 18:14 Ketorolac PHA 02/07/24 Complete Tromethamine 15mg/Ml 18:14 Ct Abdomen/Pelvis W/O CT 02/07/24 Resulted Contrast 18:18 Current Medications Medications (Trade) Dose Ordered Sig/Scooby Route PRN Reason Start Time Stop Time Status Last Admin Dose Admin Ketorolac Tromethamine (toRADol) 15 mg ONCE STAT IV 02/07/24 18:14 02/07/24 18:15 DC 02/07/24 18:29 Vital Signs Date Time Temp Pulse Resp B/P (MAP) Pulse Ox O2 Delivery O2 Flow Rate FiO2 02/07/24 17:53 99.0 104 20 141/86 99 Room Air Medical Decision Making MDM MDM: 43-year-old male coming in complaining of bilateral flank pain that has been going on for a month. Denies having any fevers, nausea, vomiting. Patient does have a history of hypertension, diabetes, cholesterol. CBC shows mild leukocytosis of 11.2, no anemia, no thrombocytopenia. Chemistry shows hyperglycemia at 271. Urine shows no ketones, no evidence of urine tract infection. CT scan of the abdomen shows constipation. Discussed findings with patient, educated patient that I will discharge him with lactulose and to follow up with PCP in 1-2 days. Patient verbalized understanding, answered all questions. Differential diagnosis: Kidney stones, pyelonephritis, urinary tract infection Rationale: Tests considered and ordered secondary to shared decision making include: Previous outside records reviewed: Old ER visits. Risk of complication and/or morbidity or mortality of patient management: None Medications-Per medication reconciliation Need for hospitalization: Patient does not meet criteria for hospitalization. Need for emergency major/minor surgery: No There are no social concerns with this patient. Prescription drug management Prescriptions will include symptomatic care Patient's prior external medical records from other ER visits were reviewed by me as indicated. Prior testing and results from previous visits were reviewed. Prior tests were taken into account with medical decision making and resource u tilization, independent historian/historians were used to obtain complete medical history. I independently interpreted the test that were performed, results were reviewed by me and considered findings on radiology if ordered. Medical management and examination interpretation discussions were had by me with other qualified healthcare professionals as indicated for the patient's ca re. I PERFORMED A SUBSTANTIVE PORTION OF THE VISIT. I HAVE REVIEWED AND PERSONALLY MADE AND APPROVE THE MANAGEMENT PLAN THAT IS DOCUMENTED IN THE NOTE BY MYSELF OR THE AP P. I ACKNOWLEDGE FULL RESPONSIBILITY FOR THE PATIENT'S MANAGEMENT PLAN. DX & DISP Disposition: Discharge Departure Impression: Primary Impression: Constipation Condition: Stable Scripts Lactulose (Kristalose) 20 Gram Packet 20 GM PO DAILY for 5 Days, #7 PKT Prov: RAMIRO GALLARDO NP 02/07/24 Additional Instructions: Follow up with PCP in 1-2 days. Referrals: JACKI RAINEYP (PCP) Time of Disposition: 19:07 I have reviewed the case, and I agree with, Diagnosis and Plan RAMIRO GALLARDO NP Feb 07, 2024 19:09
[2024-02-07 19:27] VITALS: BP 142/75; PULSE 87; RESP 18; TEMP 98; O2SAT 98
--- NOTE | 2024-02-08 08:10 | EKG ---
[facility] Test Date: 2024-02-07 Test Time: 18:24:56 Pat Name: CHARLIE DANIELLE Department: [facility] Room: Gender: M Freight Rate Specialist: [id number] : 1980 Requested By: RAMIRO GALLARDO Order Number: [id number] Reading MD: Magdalena Portillo Measurements Intervals [place] Rate: 104 P: 27 MI: 196 QRS: -37 QRSD: 117 T: 65 QT: 355 QTc: 466 Interpretive Statements Sinus tachycardia Nonspecific IVCD with LAD ST elevation suggests acute pericarditis Compared to ECG 06/15/2018 20:20:15 Intraventricular conduction delay now present ST (T wave) deviation now present Sinus rhythm no longer present Electronically Signed On 02-08-2024 14:29:20 CDT by Magdalena Portillo Please click the below link to view image of tracing.
== END 2024-02-07 19:28 | disposition home or self-care (01) ==
LOC: EDH 17:51
DX: K59.00 Constipation, unspecified (principal); E11.9 Type 2 diabetes mellitus without complications; E78.00 Pure hypercholesterolemia, unspecified; I10 Essential (primary) hypertension; F17.200 Nicotine dependence, unspecified, uncomplicated; Z79.82 Long term (current) use of aspirin; Z79.84 Long term (current) use of oral hypoglycemic drugs; Z79.85 Long-term (current) use of injectable non-insulin antidiabetic drugs; Z79.899 Other long term (current) drug therapy; Z90.49 Acquired absence of other specified parts of digestive tract; Z98.890 Other specified postprocedural states
CPT/HCPCS: 99285; 74176; 96374; 80053; 85025; 81001; 36415; 93005; J1885

== ENCOUNTER 2024-05-23 14:53 | Emergency (ER) | payer MEDICAID ==
[~2024-05-23] VITALS: Ht 180.3 cm; Wt 107.0 kg
[~2024-05-23 14:53] MED LIST changes: +LACT20PA6 PO
--- NOTE | 2024-05-23 15:06 | ERN ---
General Chief Complaint: Abnormal Labs Stated Complaint: ABNORMAL LABS Time Seen by MD: 14:54 History of Present Illness Initial Comments Patient brought in by EMS for abnormal lab work". Patient reports that he had went to his PCP a couple of days ago for a routine checkup, and he got a call today telling due to the emergency department for abnormal lab values. He is unsure what lab values or abnormal. He was brought in by EMS with stable vital signs. Patient has a history of diabetes, seizure disorder, PTSD/depression, high blood pressure. PCP: Tamar Funes Allergies: Coded Allergies: No Known Drug Allergies (Verified Allergy, Unknown, 09/14/15) Home Meds Active Scripts Lactulose (Kristalose) 20 Gram Packet, 20 GM PO DAILY for 5 Days, #7 PKT Prov:RAMIRO GALLARDO PORTAL ARCHITECT 02/07/24 Phenazopyridine HCl (Pyridium) 200 Mg Tab, 200 MG PO TID for 5 Days, #15 TAB Prov:ANTONINO BUNCH MD 01/16/24 Ketorolac Tromethamine (Toradol) 10 Mg Tab, 10 MG PO TIDP for 5 Days, #15 TAB Prov:ANTONINO BUNCH MD 01/16/24 Hydrocortisone Acetate (Hydrocortisone Acetate) 25 Mg Supp.rect, 25 MG RC BID for 7 Days, #1 EA Prov:TRISTIN LOBATO PORTAL ARCHITECT 11/02/23 Famotidine (Famotidine) 20 Mg Tablet, 20 MG PO BID for 14 Days, #28 TAB Prov:ARTURO GARVIN SENIOR TALENT MANAGEMENT CONSULTANT 07/27/23 Cephalexin (Cephalexin) 500 Mg Tablet, 500 MG PO BID, #14 TAB 0 Refills Prov:SANCHO SIEGEL AGPCNP 06/14/23 Reported Medications Fluticasone Propionate (Fluticasone Propionate) 50 Mcg Blst.w.dev, 50 MCG IH BID 06/13/23 Semaglutide (Ozempic) 0.25 Mg/0.368 Ml Pen.injctr, 0.5 MG SQ QWEEK 06/13/23 Aspirin (ASPIRIN 81MG CHEW TAB) 81 Mg Tab.chew, 81 MG PO DAILY, TAB.CHEW 06/13/23 Loratadine (Loratadine) 10 Mg Tablet, 10 MG PO DAILY, TAB 06/13/23 Valbenazine Tosylate (Ingrezza) 80 Mg Capsule, 80 MG PO HS, CAP 06/13/23 Hydroxyzine Pamoate (Hydroxyzine Pamoate) 50 Mg Capsule, 50 MG PO BID PRN for ANXIETY/AGITATION, CAP 06/13/23 Trazodone HCl (Trazodone HCl) 150 Mg Tablet, 150 MG PO HS, TAB 06/13/23 Olanzapine (Olanzapine) 20 Mg Tablet, 20 MG PO HS, TAB 06/13/23 Fluoxetine (Fluoxetine HCl) 100 % Powder, 20 GM MC DAILY, APPL 06/13/23 Divalproex Sodium (Depakote ER) 500 Mg Tab.er.24h, 500 MG PO BID, TAB 06/13/23 Atorvastatin Calcium (Atorvastatin Calcium) 20 Mg Tablet, 20 MG PO DAILY, TAB 06/13/23 Insulin Detemir (Levemir) 100 Unit/Ml Vial, 20 UNIT SQ HS, VIAL 06/13/23 Empagliflozin (Jardiance) 10 Mg Tablet, 10 MG PO DAILY, TAB 06/13/23 Metformin HCl (Metformin HCl) 1,000 Mg Tablet, 1000 MG PO BID, TAB 06/13/23 Metoprolol Succinate (Metoprolol Succinate) 25 Mg Tab.er.24h, 25 MG PO HS, TAB 06/13/23 Lisinopril (Lisinopril) 2.5 Mg Tablet, 2.5 MG PO DAILY, TAB 06/13/23 Paliperidone Palmitate (Invega Sustenna) 234 Mg/1.5 Ml Disp.syrin, 234 MG IM MONTHLY, DIS.SYR 09/14/15 Past Medical History Past Medical History: Diabetes-Type II, High Cholesterol, Hypertension Past Surgical History: Appendectomy Surgical History Other: INTESTINAL SX Family History Family History: Negative Social History Social History: Smokers, ETOH, Negative, Lives with family, Other ROS Dictation CONSTITUTIONAL: No chills, no fever, no weakness, no diaphoresis, no malaise. HEAD/FACE: No signs of trauma. EENT: No eye pain, no blurred vision, no tearing, no double vision, no ear pain, no ear discharge, no nose pain, no nasal congestion, no throat pain, no throat swelling, no mouth pain. RESPIRATORY: No cough, no orthopnea, no SOB, no stridor, no wheezing. CARDIOVASCULAR: No chest pain, no edema, no palpitations, no syncope. GASTROINTESTINAL/ABDOMINAL: No abdominal pain, no constipation, no diarrhea, no nausea, no vomiting. GENITOURINARY: No abnormal discharge, no dysuria, no frequent urination, no hematuria. No complaints of pain in the genitals. MUSCULOSKELETAL: No back pain, no gout, no joint pain, no joint swelling, no muscle pain, no muscle stiffness, no neck pain. INTEGUMENTARY: No change in color, no change in hair/nails, no dryness, no lesion, no lumps, no rash. NEUROLOGICAL/PSYCH: No anxiety, not depressed, no emotional problem, no headache, no numbness, no pre-existing deficit, no history of seizures, no tremors, no weakness. HEMATOLOGIC/LYMPHATIC: Not anemic, no history of blood clots, no apparent bleeding, no bruising, glands not swollen. All Systems Negative, Except as Noted. Physical Exam Physical Exam Dictation VITAL SIGNS: Reviewed. GENERAL APPEARANCE: Alert, oriented x3, no acute distress, obese. HEAD AND FACE: Non-traumatic. EYES: PERRL, pink conjunctivas, eyelid no trauma, anterior chamber clear. EARS: Pinnas intact and no signs of trauma or erythema. Ear canals clear and no discharge. TMs no erythema. NOSE: No discharge, no bleeding. OROPHARYNX: Mouth normal, teeth no caries, tongue pink. Pharynx clear, no erythema. Tonsils no exudates, no abscesses noted. Mucous membrane moist. NECK: Supple, non-tender, no thyromegaly, no masses, no JVD, no bruits. BREAST: Deferred. CHEST: No tenderness, no crepitus, no paradoxical movement, no retractions. LUNGS: Clear, well-ventilated, symmetric, no rales, no wheezing, no rhonchi, no stridor, good breath sounds bilaterally. HEART: Regular rate, regular rhythm, no murmur, no gallops. VASCULAR: No peripheral edema. ABDOMEN: Soft, positive bowel sounds, nondistended, no guarding, nontender, no rebound, no masses no hepatomegaly, no splenomegaly, no Rosario's sign, no hernias. RECTAL: Deferred. GENITAL: Deferred. NEUROLOGICAL: Normal speech, gross motor function intact, gross sensory function intact. MUSCULOSKELETAL: Neck nontender, full range of motion, back nontender, full range of motion. EXTREMITIES: Nontender, full range of motion. SKIN: Color pink, dry, no turgor, no rash, no lacerations, no abrasions, no contusions. LYMPHATICS: Deferred. Results Laboratory and Microbiology Lab and Micro Result Laboratory Tests Test 05/23/24 15:48 White Blood Count 12.2 K/uL (4.8-10.8) H Red Blood Count 5.13 MIL/uL (4.50-6.20) Hemoglobin 15.6 g/dL (14.0-18.0) Hematocrit 45.9 % (42-54) Mean Corpuscular Volume 89.5 fL (79-99) Mean Corpuscular Hemoglobin 30.4 pg (27.0-33.0) Mean Corpuscular Hemoglobin Concent 34.0 g/dL (32.0-36.0) Red Cell Distribution Width 13.4 % (11.0-15.5) Platelet Count 186 K/uL (130-400) Mean Platelet Volume 11.3 fL (7.5-10.5) H Immature Granulocyte % (Auto) 0.3 % (0-1) Neutrophils (%) (Auto) 67.4 % (40.0-77.0) Lymphocytes (%) (Auto) 21.7 % (21.0-51.0) Monocytes (%) (Auto) 9.7 % (3.0-13.0) Eosinophils (%) (Auto) 0.5 % (0.0-8.0) Basophils (%) (Auto) 0.4 % (0.0-5.0) Neutrophils # (Auto) 8.2 K/uL (1.8-7.7) H Lymphocytes # (Auto) 2.7 K/uL (1.0-4.8) Monocytes # (Auto) 1.2 K/uL (0.1-1.0) H Eosinophils # (Auto) 0.06 K/uL (0.00-0.70) Basophils # (Auto) 0.05 K/uL (0.00-0.20) Absolute Immature Granulocyte (auto 0.04 K/uL (0-1) Nucleated Red Blood Cells 0.0 % (0.0-0.19) Prothrombin Time 10.8 SEC (9.6-11.6) Prothromb Time International Ratio 0.96 (0.85-1.15) Activated Partial Thromboplast Time 29.4 SEC (26.3-35.5) Sodium Level 137 mmol/L (136-145) Potassium Level 4.2 mmol/L (3.5-5.1) Chloride Level 101 mmol/L (101-111) Carbon Dioxide Level 30 mmol/L (21-32) Blood Urea Nitrogen 9 mg/dL (7-18) Creatinine 0.7 mg/dL (0.5-1.3) Glomerular Filtration Rate Calc 117 mL/min (>90) Random Glucose 190 mg/dL (70-105) H Hemoglobin A1c 8.3 % (4.0-6.0) H Estimated Average Glucose (eAG) 192 mg/dL (70-126) H Whole Blood Ketones Quantitative 0.3 mmol/L (0.0-0.6) Total Calcium 8.8 mg/dL (8.5-10.1) Magnesium Level 1.90 mg/dL (1.80-2.40) Total Bilirubin 0.3 mg/dL (0.2-1.0) Direct Bilirubin 0.1 mg/dL (0.0-0.3) Aspartate Amino Transf (AST/SGOT) 5 U/L (10-37) L Alanine Aminotransferase (ALT/SGPT) 44 U/L (12-78) Alkaline Phosphatase 67 U/L (50-136) Total Creatine Kinase 105 U/L (21-232) Troponin I High Sensitivity 4.5 ng/L (4-75) B-Type Natriuretic Peptide 6 pg/mL (0-100) Total Protein 7.3 g/dL (6.0-8.3) Albumin 3.5 g/dL (3.5-5.0) MDM CC: Patient has no complaints, he is here because he was told he had abnormal labs Historian: Patient Comorbidities: Diabetes, hypertension high cholesterol Limitations by social determinants: None Differential diagnosis: Lab abnormality, lab air. Patient was no complaints. He is unsure which lab it was. We will order a wide array of labs. Vital signs are stable, remained stable in the ER. Chart does say he had a temp of 91, this is incorrect. CBC is normal. Coags are normal. Metabolic panel is normal. GFR is mildly elevated 190. His A1c is 8.3. Ketones are stable. Magnesium and liver enzymes are all normal. CK and troponin are normal. BNP is normal. Patient was no complaints, he has normal vital signs, and normal lab work. We will DC to PCP follow up. He can return to the emergency department as needed. I suspect he may have had a lab error. ED Course Orders Procedure Category Date Status Time Cardiac Panel LAB 05/23/24 Complete 14:54 Cbc With Differential LAB 05/23/24 Complete 14:54 Basic Metabolic Panel LAB 05/23/24 Complete 14:54 B-Type Natriuretic LAB 05/23/24 Complete Peptide 14:54 Magnesium LAB 05/23/24 Complete 14:54 Prothrombin Time With LAB 05/23/24 Complete INR 14:54 Partial LAB 05/23/24 Complete Thromboplastin Time 14:54 Ketone Blood LAB 05/23/24 Complete Quantitative 14:54 Hepatic Function Panel LAB 05/23/24 Complete 14:54 Hemoglobin A1c LAB 05/23/24 Complete 14:54 Blood Cult ANGELINE 05/23/24 In Process 14:54 12 Lead Ekg Tracing- EKG 05/23/24 Complete Technical 14:55 Vital Signs Date Time Temp Pulse Resp B/P (MAP) Pulse Ox O2 Delivery O2 Flow Rate FiO2 05/23/24 14:54 91.0 91 18 114/71 99 Room Air DX & DISP Disposition: Discharge Departure Impression: Primary Impression: Abnormal laboratory test Condition: Stable Additional Instructions: There are no dangerous findings on your workup here today. We checked her labs here in the ER. There are no life-threatening abnormalities. Your lab checked are: CBC, BMP, liver enzymes, ketones, magne sium, CK, troponin, BNP. You do have an elevation of your hemoglobin A1c at 8.3, consistent with diabetes. Please continue with all your home medications. Please return to the emergency department if you have any concerns. I do recommend you contact your primary doctor to let them know about your recent ER visit and confirm which labs or incorrect and if you need to return to the emergency department. Referrals: JACKI FUNES (PCP) MATT NAZARIO DO May 23, 2024 15:06
--- NOTE | 2024-05-23 15:33 | EKG ---
[facility] Test Date: 2024-05-23 Test Time: 15:30:38 Pat Name: CHARLIE DANIELLE Department: [facility] Room: Gender: M Furniture Sales Associate: 08 : 1980 Requested By: MATT NAZARIO Order Number: [id number] Reading MD: Panda Polo Measurements Intervals [place] Rate: 100 P: 46 MN: 197 QRS: -32 QRSD: 119 T: 77 QT: 369 QTc: 475 Interpretive Statements Sinus tachycardia Borderline prolonged MN interval Nonspecific intraventricular conduction delay ST elev, probable normal early repol pattern Compared to ECG 02/07/2024 18:24:56 No significant changes Electronically Signed On 05-23-2024 19:50:28 HOSPITAL MORTICIAN by Panda Polo Please click the below link to view image of tracing.
[2024-05-23 16:16] LABS: BASOPHILS # (AUTO) 0.05 K/uL (0.00-0.20); BASOPHILS % (AUTO) 0.4 % (0.0-5.0); EOSINOPHILS # (AUTO) 0.06 K/uL (0.00-0.70); EOSINOPHILS % (AUTO) 0.5 % (0.0-8.0); HEMATOCRIT 45.9 % (42-54); IMMATURE GRANULOCYTE ABSOLUTE 0.04 K/uL (0-1); LYMPHOCYTES # (AUTO) 2.7 K/uL (1.0-4.8); LYMPHOCYTES % (AUTO) 21.7 % (21.0-51.0); MEAN CORPUSCULAR HEMOGLOBIN 30.4 pg (27.0-33.0); MEAN CORPUSCULAR VOLUME 89.5 fL (79-99); MONOCYTES # (AUTO) 1.2 K/uL (0.1-1.0); MONOCYTES % (AUTO) 9.7 % (3.0-13.0); NEUTROPHILS # (AUTO) 8.2 K/uL (1.8-7.7); NEUTROPHILS % (AUTO) 67.4 % (40.0-77.0); PLATELET COUNT (AUTO) 186 K/uL (130-400); RED BLOOD CELL COUNT(AUTO) 5.13 MIL/uL (4.50-6.20); RED CELL DISTRIBUTION WIDTH 13.4 % (11.0-15.5); WHITE BLOOD COUNT (AUTO) 12.2 K/uL (4.8-10.8)
[2024-05-23 16:33] LABS: CREATININE 0.7 mg/dL (0.5-1.3); POTASSIUM 4.2 mmol/L (3.5-5.1)
[2024-05-23 16:35] LABS: INR 0.96 (0.85-1.15); PROTHROMBIN TIME 10.8 SEC (9.6-11.6)
[2024-05-23 16:36] LABS: B-TYPE NATRIURETIC PEPTIDE 6 pg/mL (0-100)
[2024-05-23 16:37] LABS: PARTIAL THROMBOPLASTIN TIME 29.4 SEC (26.3-35.5)
[2024-05-23 16:56] LABS: ALBUMIN 3.5 g/dL (3.5-5.0); BILIRUBIN,DIRECT 0.1 mg/dL (0.0-0.3); BILIRUBIN,TOTAL 0.3 mg/dL (0.2-1.0); MAGNESIUM 1.9 mg/dL (1.80-2.40); TOTAL PROTEIN, SERUM 7.3 g/dL (6.0-8.3)
[2024-05-23 17:15] LABS: HEMOGLOBIN A1C 8.3 % (4.0-6.0)
[2024-05-23 17:43] VITALS: BP 119/73; PULSE 89; RESP 18; TEMP 98; O2SAT 99
== END 2024-05-23 17:31 | disposition home or self-care (01) ==
LOC: EDH 14:53
DX: R79.89 Other specified abnormal findings of blood chemistry (principal); E11.9 Type 2 diabetes mellitus without complications; E78.00 Pure hypercholesterolemia, unspecified; F17.200 Nicotine dependence, unspecified, uncomplicated; F32.A Depression, unspecified; F43.10 Post-traumatic stress disorder, unspecified; I10 Essential (primary) hypertension; D68.9 Coagulation defect, unspecified; Z79.82 Long term (current) use of aspirin; Z79.84 Long term (current) use of oral hypoglycemic drugs; Z79.85 Long-term (current) use of injectable non-insulin antidiabetic drugs; Z79.899 Other long term (current) drug therapy; Z90.49 Acquired absence of other specified parts of digestive tract
CPT/HCPCS: 36415; 80048; 80076; 82010; 82550; 83036; 83735; 83880; 84484; 85025; 85610; 85730; 87040; 93005; 99284

== ENCOUNTER 2024-06-25 13:14 | Emergency (ER) | payer MEDICAID ==
[~2024-06-25] VITALS: Ht 170.2 cm; Wt 117.0 kg
[2024-06-25 14:35] LABS: CREATININE 0.7 mg/dL (0.5-1.3); POTASSIUM 4.1 mmol/L (3.5-5.1)
[2024-06-25 14:37] LABS: BASOPHILS # (AUTO) 0.05 K/uL (0.00-0.20); BASOPHILS % (AUTO) 0.6 % (0.0-5.0); EOSINOPHILS # (AUTO) 0.05 K/uL (0.00-0.70); EOSINOPHILS % (AUTO) 0.6 % (0.0-8.0); HEMATOCRIT 45.3 % (42-54); IMMATURE GRANULOCYTE ABSOLUTE 0.04 K/uL (0-1); LYMPHOCYTES # (AUTO) 2.3 K/uL (1.0-4.8); LYMPHOCYTES % (AUTO) 25.1 % (21.0-51.0); MEAN CORPUSCULAR HEMOGLOBIN 30.5 pg (27.0-33.0); MEAN CORPUSCULAR HGB CONC 33.8 g/dL (32.0-36.0); MEAN CORPUSCULAR VOLUME 90.2 fL (79-99); MONOCYTES % (AUTO) 10.7 % (3.0-13.0); NEUTROPHILS # (AUTO) 5.7 K/uL (1.8-7.7); NEUTROPHILS % (AUTO) 62.6 % (40.0-77.0); PLATELET COUNT (AUTO) 202 K/uL (130-400); RED BLOOD CELL COUNT(AUTO) 5.02 MIL/uL (4.50-6.20); RED CELL DISTRIBUTION WIDTH 13.7 % (11.0-15.5)
--- NOTE | 2024-06-25 15:37 | HMCIMG ---
THORACIC SPINE RADIOGRAPHS - 2 VIEWS INDICATION: Back pain COMPARISON: None FINDINGS: No acute fracture or subluxation identified. Vertebral body heights and disc spaces are well-maintained. Multilevel mild anterior endplate osteophytic spurring. IMPRESSION: No acute fracture or subluxation noted.
[2024-06-25] MEDS ORDERED: IOHEXOL 350 MG/ML 100ML INFUS..BTL IV ONE (16:00)
[2024-06-25 16:29] VITALS: BP 134/66; PULSE 73; RESP 20; TEMP 98.6; O2SAT 100
--- NOTE | 2024-06-25 16:37 | HMCIMG ---
CT ABDOMEN WITH CONTRAST. CT PELVIS WITH CONTRAST INDICATION: Bilateral flank pain after fall from tractor TECHNIQUE: Routine transaxial images using 5 mm slice thickness were obtained after the intravenous infusion of 100 mL of Omnipaque 350 without adverse effects. Oral contrast was not administered. Rectal contrast was not administered. Coronal and sagittal reformatted images acquired for interpretation. CT was performed with one or more of the following dose reduction techniques: Automated exposure control, adjustment of the mA and/or kV according to patient size, or use of iterative reconstruction technique. COMPARISON: 02/07/2024 FINDINGS: ABDOMEN: Heart size is normal. Visible lung bases are clear. The liver is normal in size and smooth in contour without lesions or biliary duct dilation. The spleen is normal in size without lesions. The gallbladder is absent. The pancreas appears normal without pancreatic duct dilation. The adrenal glands appear normal. Both kidneys appear unremarkable. Cortical nephrograms are symmetric and normal in appearance bilaterally. No evidence for intra-abdominal free air or organized fluid collection. No retrocrural, intraabdominal, or retroperitoneal lymphadenopathy identified. No aortic aneurysmal dilation or dissection identified. Bilateral lower ribs are intact. PELVIS: No evidence for free air or organized pelvic fluid collection. No significant pelvic adenopathy detected. Mild to moderate circumferential wall thickening along the rectosigmoid colon without any surrounding inflammatory fat stranding or lymphadenopathy. Terminal ileum appears normal. The appendix appears normal. The urinary bladder appears unremarkable. Lumbar spine is intact. Visible portions of the lower thoracic spine are intact. IMPRESSION: Nonspecific mild to moderate rectosigmoid colonic wall thickening without any surrounding inflammatory changes or lymphadenopathy. No evidence for any acute intra-abdominal or intrapelvic injury or fracture. Additional minor findings, postsurgical changes, and pertinent negatives as reported.
--- NOTE | 2024-06-25 16:53 | ERN ---
ED Note History of Present Illness Stated Complaint: BACK PAIN Chief Complaint: Back Pain or Injury Time Seen by MD: 13:20 Time Seen by Midlevel: 13:25 Dictation: 44-year-old male coming in with complaints of mid back pain and kidney pain. Patient states yesterday he was standing on the belt of a tractor and slipped back, denies any head injury, denies any LOC, denies being on any blood thinners. At this time patient does not complain of any headache, neck pain, nausea, vomiting, dizziness, blurry vision. Only complaints are back pain and knee pain. Allergies: Coded Allergies: No Known Drug Allergies (Verified Allergy, Unknown, 09/14/15) Home Meds Active Scripts Lactulose (Kristalose) 20 Gram Packet, 20 GM PO DAILY for 5 Days, #7 PKT Prov:RAMIRO GALLARDO RISK ENGINEER 02/07/24 Phenazopyridine HCl (Pyridium) 200 Mg Tab, 200 MG PO TID for 5 Days, #15 TAB Prov:ANTONINO BUNCH MD 01/16/24 Ketorolac Tromethamine (Toradol) 10 Mg Tab, 10 MG PO TIDP for 5 Days, #15 TAB Prov:ANTONINO BUNCH MD 01/16/24 Hydrocortisone Acetate (Hydrocortisone Acetate) 25 Mg Supp.rect, 25 MG RC BID for 7 Days, #1 EA Prov:TRISTIN LOBATO RISK ENGINEER 11/02/23 Famotidine (Famotidine) 20 Mg Tablet, 20 MG PO BID for 14 Days, #28 TAB Prov:ARTURO GARVIN [employer]ACE REH[employer]ILITATION OFFICER 07/27/23 Cephalexin (Cephalexin) 500 Mg Tablet, 500 MG PO BID, #14 TAB 0 Refills Prov:SANCHO SIEGEL AGPCNP 06/14/23 Reported Medications Fluticasone Propionate (Fluticasone Propionate) 50 Mcg Blst.w.dev, 50 MCG IH BID 06/13/23 Semaglutide (Ozempic) 0.25 Mg/0.368 Ml Pen.injctr, 0.5 MG SQ QWEEK 06/13/23 Aspirin (ASPIRIN 81MG CHEW TAB) 81 Mg Tab.chew, 81 MG PO DAILY, TAB.CHEW 06/13/23 Loratadine (Loratadine) 10 Mg Tablet, 10 MG PO DAILY, TAB 06/13/23 Valbenazine Tosylate (Ingrezza) 80 Mg Capsule, 80 MG PO HS, CAP 06/13/23 Hydroxyzine Pamoate (Hydroxyzine Pamoate) 50 Mg Capsule, 50 MG PO BID PRN for ANXIETY/AGITATION, CAP 06/13/23 Trazodone HCl (Trazodone HCl) 150 Mg Tablet, 150 MG PO HS, TAB 06/13/23 Olanzapine (Olanzapine) 20 Mg Tablet, 20 MG PO HS, TAB 06/13/23 Fluoxetine (Fluoxetine HCl) 100 % Powder, 20 GM MC DAILY, APPL 06/13/23 Divalproex Sodium (Depakote ER) 500 Mg Tab.er.24h, 500 MG PO BID, TAB 06/13/23 Atorvastatin Calcium (Atorvastatin Calcium) 20 Mg Tablet, 20 MG PO DAILY, TAB 06/13/23 Insulin Detemir (Levemir) 100 Unit/Ml Vial, 20 UNIT SQ HS, VIAL 06/13/23 Empagliflozin (Jardiance) 10 Mg Tablet, 10 MG PO DAILY, TAB 06/13/23 Metformin HCl (Metformin HCl) 1,000 Mg Tablet, 1000 MG PO BID, TAB 06/13/23 Metoprolol Succinate (Metoprolol Succinate) 25 Mg Tab.er.24h, 25 MG PO HS, TAB 06/13/23 Lisinopril (Lisinopril) 2.5 Mg Tablet, 2.5 MG PO DAILY, TAB 06/13/23 Paliperidone Palmitate (Invega Sustenna) 234 Mg/1.5 Ml Disp.syrin, 234 MG IM MONTHLY, DIS.SYR 09/14/15 Past Medical History Past Medical History: Diabetes-Type II, High Cholesterol, Hypertension Surgical History: Appendectomy Surgical History Other: INTESTINAL SX Family History: Negative Social History: Smokers, ETOH, Negative, Lives with family, Other Review of System Dictation Constitutional: Negative for fever,chills, and weight loss Eyes: Negative for injury, pain,redness, and discharge ENT: Negative for injury,pain or swelling Cardiovascular: Negative for chest pain, palpitations, and edema Respiratory: Negative for shortness of breath, cough, and wheezing, Abdomen/GI: Negative for abdominal pain, nausea, vomiting, diarrhea, and constipation Back: Negative for injury and pain : Negative for injury, bleeding and discharge MS/Extremity: Complaining of mid back pain and kidney pain" Skin: Negative for rash, and discoloration Neuro: Negative for headache, weakness, numbness, tingling, and seizure Psych: Negative for suicide ideation, homicidal ideation, and hallucinations Review of Systems: was completed Initial Vital Sign VS Vital Signs Date Time Temp Pulse Resp B/P (MAP) Pulse Ox O2 Delivery O2 Flow Rate FiO2 06/25/24 13:15 98.6 94 16 132/81 98 Room Air 06/25/24 15:27 0 21 Physical Exam Dictation General: awake, alert, NAD Head/Face: Normocephalic, atraumatic Eyes: PERRL, EOMI, vision at baseline ENT: oral cavity clear, TMs clear, no signs of infection Neck: Trachea midline, supple, no nuchal rigidity Cardiovascular: RRR, normal S1/S2, No MRGs, no JVD Respiratory: CTAB, no respiratory distress, No rales or wheezes Abdomen: Soft, non-tender, non-distended, normal bowel sounds, no guarding or rebound. Skin: Warm, dry, normal turgor, no rash MS/Extremity: Pulses equal, no cyanosis, neurovascular intact, FROM pain on palpation to the midthoracic area Neuro: COAx4, GCS 15, strength 5/5, CN 2-12 intact, normal cerebellar exam, normal gait, Psych: Normal behavior, mood, and affect normal Results (Laboratory/Radiology) Laboratory/Radiology Laboratory Tests Test 06/25/24 14:17 White Blood Count 9.0 K/uL (4.8-10.8) Red Blood Count 5.02 MIL/uL (4.50-6.20) Hemoglobin 15.3 g/dL (14.0-18.0) Hematocrit 45.3 % (42-54) Mean Corpuscular Volume 90.2 fL (79-99) Mean Corpuscular Hemoglobin 30.5 pg (27.0-33.0) Mean Corpuscular Hemoglobin Concent 33.8 g/dL (32.0-36.0) Red Cell Distribution Width 13.7 % (11.0-15.5) Platelet Count 202 K/uL (130-400) Mean Platelet Volume 11.2 fL (7.5-10.5) H Immature Granulocyte % (Auto) 0.4 % (0-1) Neutrophils (%) (Auto) 62.6 % (40.0-77.0) Lymphocytes (%) (Auto) 25.1 % (21.0-51.0) Monocytes (%) (Auto) 10.7 % (3.0-13.0) Eosinophils (%) (Auto) 0.6 % (0.0-8.0) Basophils (%) (Auto) 0.6 % (0.0-5.0) Neutrophils # (Auto) 5.7 K/uL (1.8-7.7) Lymphocytes # (Auto) 2.3 K/uL (1.0-4.8) Monocytes # (Auto) 1.0 K/uL (0.1-1.0) Eosinophils # (Auto) 0.05 K/uL (0.00-0.70) Basophils # (Auto) 0.05 K/uL (0.00-0.20) Absolute Immature Granulocyte (auto 0.04 K/uL (0-1) Nucleated Red Blood Cells 0.0 % (0.0-0.19) Sodium Level 133 mmol/L (136-145) L Potassium Level 4.1 mmol/L (3.5-5.1) Chloride Level 97 mmol/L (101-111) L Carbon Dioxide Level 29 mmol/L (21-32) Blood Urea Nitrogen 18 mg/dL (7-18) Creatinine 0.7 mg/dL (0.5-1.3) Glomerular Filtration Rate Calc 117 mL/min (>90) Random Glucose 180 mg/dL (70-105) H Total Calcium 9.0 mg/dL (8.5-10.1) Labs Reviewed?: Yes CT Scan Comment: [address] [id number] [place] [address] IMAGING REPORT Signed PATIENT: CHARLIE DANIELLE MR#: [id number] : 1980 SEX: M AGE: 44 LOCATION: [facility] ORDER 47 STATUS: REG ER REPORT#: [id number] SERVICE [id number] REASON: fall from tractor, c/o bilateral flank pain ORDERING PHYSICIAN: RAMIRO GALLARDO NP PROCEDURE: ABD PEL W - CT ABDOMEN/PELVIS W/CONTRAST CT ABDOMEN WITH CONTRAST. CT PELVIS WITH CONTRAST INDICATION: Bilateral flank pain after fall from tractor TECHNIQUE: Routine transaxial images using 5 mm slice thickness were obtained after the intravenous infusion of 100 mL of Omnipaque 350 without adverse effects. Oral contrast was not administered. Rectal contrast was not administered. Coronal and sagittal reformatted images acquired for interpretation. CT was performed with one or more of the following dose reduction techniques: Automated exposure control, adjustment of the mA and/or kV according to patient size, or use of iterative reconstruction technique. COMPARISON: 02/07/2024 FINDINGS: ABDOMEN: Heart size is normal. Visible lung bases are clear. The liver is normal in size and smooth in contour without lesions or biliary duct dilation. The spleen is normal in size without lesions. The gallbladder is absent. The pancreas appears normal without pancreatic duct dilation. The adrenal glands appear normal. Both kidneys appear unremarkable. Cortical nephrograms are symmetric and normal in appearance bilaterally. No evidence for intra-abdominal free air or organized fluid collection. No retrocrural, intraabdominal, or retroperitoneal lymphadenopathy identified. No aortic aneurysmal dilation or dissection identified. Bilateral lower ribs are intact. PELVIS: No evidence for free air or organized pelvic fluid collection. No significant pelvic adenopathy detected. Mild to moderate circumferential wall thickening along the rectosigmoid colon without any surrounding inflammatory fat stranding or lymphadenopathy. Terminal ileum appears normal. The appendix appears normal. The urinary bladder appears unremarkable. Lumbar spine is intact. Visible portions of the lower thoracic spine are intact. IMPRESSION: Nonspecific mild to moderate rectosigmoid colonic wall thickening without any surrounding inflammatory changes or lymphadenopathy. No evidence for any acute intra-abdominal or intrapelvic injury or fracture. Additional minor findings, postsurgical changes, and pertinent negatives as reported. DICTATED BY: LYLY JIN MD DATE: 06/25/24 1632 ELECTRONICALLY SIGNED BY: LYLY JIN MD DATE: 06/25/24 1637 ED Course ED Course Orders Procedure Category Date Status Time Cbc With Differential LAB 06/25/24 Complete 13:45 Basic Metabolic Panel LAB 06/25/24 Complete 13:45 Ct Abdomen/Pelvis CT 06/25/24 Resulted W/Contrast 13:45 Thoracic Spine 2vws RAD 06/25/24 Resulted 13:45 Iohexol (Omnipaque) PHA 06/25/24 Complete 16:00 Hydrocodone/Apap PHA 06/25/24 Logged 5/325 (Wells 5/325mg) 16:59 Current Medications Medications (Trade) Dose Ordered Sig/Scooby Route PRN Reason Start Time Stop Time Status Last Admin Dose Admin Iohexol (Omnipaque) 35,000 mg STK-MED ONCE IV 06/25/24 16:00 06/25/24 16:00 DC Vital Signs Date Time Temp Pulse Resp B/P (MAP) Pulse Ox O2 Delivery O2 Flow Rate FiO2 06/25/24 16:29 98.6 73 20 134/66 100 Room Air* 0 21 06/25/24 15:27 98.6 84 20 128/78 100 Room Air* 0 21 06/25/24 13:15 98.6 94 16 132/81 98 Room Air Medical Decision Making MDM MDM: 44-year-old male coming in with complaints of mid back pain and kidney pain. Patient states yesterday he standing on the belt of a tractor and slipped back he is interested in his back with one of the hooks that the belt has, denies any head injury, denies any LOC, denies being on any blood thinners. At this time patient does not complain of any headache, neck pain, nausea, vomiting, dizziness, blurry vision. Only complaints are back pain and knee pain. On physical exam patient has clear bilateral lung sounds, abdomen is soft nondistended, tenderness to palpation. Full range of motion to all extremities. Neurovascularly intact. No obvious deformities or abrasions. No bruising, abrasions, deformities noted to the thoracic or lumbar area. CBC shows no leukocytosis, no anemia, no thrombocytopenia. Chemistry shows mild hyponatremia at 1:33 a.m., normal kidney function. Glucose 180. CT of the abdomen and pelvis no evidence of any acute intra-abdominal or intrapelvic injury or fracture. Thoracic spine x-ray shows no acute findings. Discussed findings with the patient. Educated patient to take Tylenol or Motrin [id number] for pain control or return to the hospital if he has not he worsening symptoms. Patient verbalized understanding, answered all questions. Differential diagnosis: T-spine fracture, kidney contusion, kidney laceration blunt force injury Rationale: Tests considered and ordered secondary to shared decision making include: Previous outside records reviewed: Old ER visits. Risk of complication and/or morbidity or mortality of patient management: None Medications-Per medication reconciliation Need for hospitalization: Patient does not meet criteria for hospitalization. Need for emergency major/minor surgery: No There are no social concerns with this patient. Prescription drug management Prescriptions will include symptomatic care Patient's prior external medical records from other ER visits were reviewed by me as indicated. Prior testing and results from previous visits were reviewed. Prior tests were taken into account with medical decision making and resource utilization, independent historian/historians were used to obtain complete medical history. I independently interpreted the test that were performed, results were reviewed by me and considered findings on radiology if ordered. Medical management and examination interpretation discussions were had by me with other qualified healthcare professionals as indicated for the patient's care. DX & DISP Disposition: Discharge Departure Impression: Primary Impression: Back muscle spasm Condition: Stable Additional Instructions: You may be sore for the next couple of days you can take Tylenol Motrin [id number] for pain control. Follow up with your PCP in 1-2 days. Return to the emergency room if you have any worsening symptoms. Referrals: SELF,REFERRAL (PCP) Time of Disposition: 16:51 I have reviewed the case, and I agree with, Diagnosis and Plan RAMIRO GALLARDO NP Jun 25, 2024 16:53
[2024-06-25] MEDS: HYDROcodone/APAP 5/325 1 TAB TABLET PO STA (17:03)
== END 2024-06-25 17:08 | disposition home or self-care (01) ==
LOC: EDH 13:14
DX: M62.830 Muscle spasm of back (principal); E11.9 Type 2 diabetes mellitus without complications; E78.00 Pure hypercholesterolemia, unspecified; F17.200 Nicotine dependence, unspecified, uncomplicated; I10 Essential (primary) hypertension; Z79.82 Long term (current) use of aspirin; Z79.84 Long term (current) use of oral hypoglycemic drugs; Z79.85 Long-term (current) use of injectable non-insulin antidiabetic drugs; Z79.899 Other long term (current) drug therapy; Z90.49 Acquired absence of other specified parts of digestive tract
CPT/HCPCS: 99285; 74177; 80048; 85025; 36415; 72070; Q9967

== ENCOUNTER 2024-07-04 15:46 | Emergency (ER) | payer MEDICAID ==
[~2024-07-04] VITALS: Ht 180.3 cm; Wt 117.9 kg
[2024-07-04 16:18] LABS: AMPHET/METH SCREEN,URINE NEGATIVE (NEGATIVE); BARBITURATE SCREEN, URINE NEGATIVE (NEGATIVE); BENZODIAZEPINES SCREEN,URINE NEGATIVE (NEGATIVE); CANNABINOID SCREEN,URINE NEGATIVE (NEGATIVE); COCAINE SCREEN,URINE NEGATIVE (NEGATIVE); OPIATE SCREEN,URINE NEGATIVE (NEGATIVE); PHENCYCLIDINE SCREEN,URINE NEGATIVE (NEGATIVE)
[2024-07-04 16:29] LABS: BASOPHILS # (AUTO) 0.03 K/uL (0.00-0.20); BASOPHILS % (AUTO) 0.3 % (0.0-5.0); EOSINOPHILS # (AUTO) 0.04 K/uL (0.00-0.70); EOSINOPHILS % (AUTO) 0.4 % (0.0-8.0); HEMATOCRIT 43.9 % (42-54); IMMATURE GRANULOCYTE ABSOLUTE 0.04 K/uL (0-1); LYMPHOCYTES # (AUTO) 2.8 K/uL (1.0-4.8); LYMPHOCYTES % (AUTO) 27.4 % (21.0-51.0); MEAN CORPUSCULAR HEMOGLOBIN 30.7 pg (27.0-33.0); MEAN CORPUSCULAR HGB CONC 34.4 g/dL (32.0-36.0); MEAN CORPUSCULAR VOLUME 89.2 fL (79-99); MONOCYTES # (AUTO) 1.2 K/uL (0.1-1.0); MONOCYTES % (AUTO) 11.6 % (3.0-13.0); NEUTROPHILS # (AUTO) 6.1 K/uL (1.8-7.7); NEUTROPHILS % (AUTO) 59.9 % (40.0-77.0); PLATELET COUNT (AUTO) 193 K/uL (130-400); RED BLOOD CELL COUNT(AUTO) 4.92 MIL/uL (4.50-6.20); RED CELL DISTRIBUTION WIDTH 13.4 % (11.0-15.5); WHITE BLOOD COUNT (AUTO) 10.2 K/uL (4.8-10.8)
[2024-07-04 16:38] LABS: CARBON DIOXIDE 33 mmol/L (21-32); CREATININE 0.7 mg/dL (0.5-1.3); GLOMERULAR FILTR. RATE CALC 117 mL/min (>90); GLUCOSE,RANDOM 138 mg/dL (70-105); SODIUM SERUM 126 mmol/L (136-145); UREA NITROGEN, BLOOD 16 mg/dL (7-18)
[2024-07-04 16:41] LABS: ALCOHOL, BLOOD 6 mg/dL (0-10)
[2024-07-04 16:42] LABS: ACETAMINOPHEN < 1 mcg/mL (10-29); CHLORIDE 90 mmol/L (101-111); SALICYLATE < 2.8 mg/dL (2.8-20.0)
--- NOTE | 2024-07-04 17:20 | NUR ---
[employer] CALLED FOR EVALUATION PENDING ANALYST SALES
--- NOTE | 2024-07-04 18:08 | ERN ---
General Chief Complaint: Suicidal Ideation Stated Complaint: SUICIDAL IDEATION Time Seen by MD: 15:48 History of Present Illness Initial Comments 44-year-old male, history of hypertension, diabetes, depression, presents for suicidal and homicidal ideation. He reports that he wants to hang himself. He reports that he wants to injure other people. He denies drug abuse or alcohol abuse. History of depression. Allergies: Coded Allergies: No Known Drug Allergies (Verified Allergy, Unknown, 09/14/15) Home Meds Active Scripts Lactulose (Kristalose) 20 Gram Packet, 20 GM PO DAILY for 5 Days, #7 PKT Prov:RAMIRO GALLARDO VICE PRESIDENT PAYER 02/07/24 Phenazopyridine HCl (Pyridium) 200 Mg Tab, 200 MG PO TID for 5 Days, #15 TAB Prov:ANTONINO BUNCH MD 01/16/24 Ketorolac Tromethamine (Toradol) 10 Mg Tab, 10 MG PO TIDP for 5 Days, #15 TAB Prov:ANTONINO BUNCH MD 01/16/24 Hydrocortisone Acetate (Hydrocortisone Acetate) 25 Mg Supp.rect, 25 MG RC BID for 7 Days, #1 EA Prov:TRISTIN LOBATO VICE PRESIDENT PAYER 11/02/23 Famotidine (Famotidine) 20 Mg Tablet, 20 MG PO BID for 14 Days, #28 TAB Prov:ARTURO GARVIN SOCIAL WORK MSW 07/27/23 Cephalexin (Cephalexin) 500 Mg Tablet, 500 MG PO BID, #14 TAB 0 Refills Prov:SANCHO SIEGEL AGPCNP 06/14/23 Reported Medications Fluticasone Propionate (Fluticasone Propionate) 50 Mcg Blst.w.dev, 50 MCG IH BID 06/13/23 Semaglutide (Ozempic) 0.25 Mg/0.368 Ml Pen.injctr, 0.5 MG SQ QWEEK 06/13/23 Aspirin (ASPIRIN 81MG CHEW TAB) 81 Mg Tab.chew, 81 MG PO DAILY, TAB.CHEW 06/13/23 Loratadine (Loratadine) 10 Mg Tablet, 10 MG PO DAILY, TAB 06/13/23 Valbenazine Tosylate (Ingrezza) 80 Mg Capsule, 80 MG PO HS, CAP 06/13/23 Hydroxyzine Pamoate (Hydroxyzine Pamoate) 50 Mg Capsule, 50 MG PO BID PRN for ANXIETY/AGITATION, CAP 06/13/23 Trazodone HCl (Trazodone HCl) 150 Mg Tablet, 150 MG PO HS, TAB 06/13/23 Olanzapine (Olanzapine) 20 Mg Tablet, 20 MG PO HS, TAB 06/13/23 Fluoxetine (Fluoxetine HCl) 100 % Powder, 20 GM MC DAILY, APPL 06/13/23 Divalproex Sodium (Depakote ER) 500 Mg Tab.er.24h, 500 MG PO BID, TAB 06/13/23 Atorvastatin Calcium (Atorvastatin Calcium) 20 Mg Tablet, 20 MG PO DAILY, TAB 06/13/23 Insulin Detemir (Levemir) 100 Unit/Ml Vial, 20 UNIT SQ HS, VIAL 06/13/23 Empagliflozin (Jardiance) 10 Mg Tablet, 10 MG PO DAILY, TAB 06/13/23 Metformin HCl (Metformin HCl) 1,000 Mg Tablet, 1000 MG PO BID, TAB 06/13/23 Metoprolol Succinate (Metoprolol Succinate) 25 Mg Tab.er.24h, 25 MG PO HS, TAB 06/13/23 Lisinopril (Lisinopril) 2.5 Mg Tablet, 2.5 MG PO DAILY, TAB 06/13/23 Paliperidone Palmitate (Invega Sustenna) 234 Mg/1.5 Ml Disp.syrin, 234 MG IM MONTHLY, DIS.SYR 09/14/15 Past Medical History Past Medical History: Anxiety, Depression, Diabetes-Type II, Hypertension Past Surgical History: None Surgical History Other: INTESTINAL SX Family History Family History: Negative Social History Social History: Smokers, ETOH, Negative, Lives with family, Other ROS Dictation CONSTITUTIONAL: No chills, no fever, no weakness, no diaphoresis, no malaise. HEAD/FACE: No signs of trauma. EENT: No eye pain, no blurred vision, no tearing, no double vision, no ear pain, no ear discharge, no nose pain, no nasal congestion, no throat pain, no throat swelling, no mouth pain. RESPIRATORY: No cough, no orthopnea, no SOB, no stridor, no wheezing. CARDIOVASCULAR: No chest pain, no edema, no palpitations, no syncope. GASTROINTESTINAL/ABDOMINAL: No abdominal pain, no constipation, no diarrhea, no nausea, no vomiting. GENITOURINARY: No abnormal discharge, no dysuria, no frequent urination, no hematuria. No complaints of pain in the genitals. MUSCULOSKELETAL: No back pain, no gout, no joint pain, no joint swelling, no muscle pain, no muscle stiffness, no neck pain. INTEGUMENTARY: No change in color, no change in hair/nails, no dryness, no lesion, no lumps, no rash. NEUROLOGICAL/PSYCH: No anxiety, not depressed, no emotional problem, no headache, no numbness, no pre-existing deficit, no history of seizures, no tremors, no weakness. HEMATOLOGIC/LYMPHATIC: Not anemic, no history of blood clots, no apparent bleeding, no bruising, glands not swollen. All Systems Negative, Except as Noted. Physical Exam Physical Exam Dictation VITAL SIGNS: Reviewed. GENERAL APPEARANCE: Alert, oriented x3, no acute distress, obese. HEAD AND FACE: Non-traumatic. EYES: PERRL, pink conjunctivas, eyelid no trauma, anterior chamber clear. EARS: Pinnas intact and no signs of trauma or erythema. Ear canals clear and no discharge. TMs no erythema. NOSE: No discharge, no bleeding. OROPHARYNX: Mouth normal, teeth no caries, tongue pink. Pharynx clear, no erythema. Tonsils no exudates, no abscesses noted. Mucous membrane moist. NECK: Supple, non-tender, no thyromegaly, no masses, no JVD, no bruits. BREAST: Deferred. CHEST: No tenderness, no crepitus, no paradoxical movement, no retractions. LUNGS: Clear, well-ventilated, symmetric, no rales, no wheezing, no rhonchi, no stridor, good breath sounds bilaterally. HEART: Regular rate, regular rhythm, no murmur, no gallops. VASCULAR: No peripheral edema. ABDOMEN: Soft, positive bowel sounds, nondistended, no guarding, nontender, no rebound, no masses no hepatomegaly, no splenomegaly, no Rosario's sign, no hernias. RECTAL: Deferred. GENITAL: Deferred. NEUROLOGICAL: Normal speech, gross motor function intact, gross sensory function intact. MUSCULOSKELETAL: Neck nontender, full range of motion, back nontender, full range of motion. EXTREMITIES: Nontender, full range of motion. SKIN: Color pink, dry, no turgor, no rash, no lacerations, no abrasions, no contusions. LYMPHATICS: Deferred. Results Laboratory and Microbiology Lab and Micro Result Laboratory Tests Test 07/04/24 15:54 07/04/24 16:11 Urine Opiates Screen NEGATIVE (NEGATIVE) Urine Barbiturates Screen NEGATIVE (NEGATIVE) Urine Phencyclidine Screen NEGATIVE (NEGATIVE) Urine Amphetamines Screen NEGATIVE (NEGATIVE) Urine Benzodiazepines Screen NEGATIVE (NEGATIVE) Urine Cocaine Screen NEGATIVE (NEGATIVE) Urine Marijuana (THC) Screen NEGATIVE (NEGATIVE) White Blood Count 10.2 K/uL (4.8-10.8) Red Blood Count 4.92 MIL/uL (4.50-6.20) Hemoglobin 15.1 g/dL (14.0-18.0) Hematocrit 43.9 % (42-54) Mean Corpuscular Volume 89.2 fL (79-99) Mean Corpuscular Hemoglobin 30.7 pg (27.0-33.0) Mean Corpuscular Hemoglobin Concent 34.4 g/dL (32.0-36.0) Red Cell Distribution Width 13.4 % (11.0-15.5) Platelet Count 193 K/uL (130-400) Mean Platelet Volume 11.2 fL (7.5-10.5) H Immature Granulocyte % (Auto) 0.4 % (0-1) Neutrophils (%) (Auto) 59.9 % (40.0-77.0) Lymphocytes (%) (Auto) 27.4 % (21.0-51.0) Monocytes (%) (Auto) 11.6 % (3.0-13.0) Eosinophils (%) (Auto) 0.4 % (0.0-8.0) Basophils (%) (Auto) 0.3 % (0.0-5.0) Neutrophils # (Auto) 6.1 K/uL (1.8-7.7) Lymphocytes # (Auto) 2.8 K/uL (1.0-4.8) Monocytes # (Auto) 1.2 K/uL (0.1-1.0) H Eosinophils # (Auto) 0.04 K/uL (0.00-0.70) Basophils # (Auto) 0.03 K/uL (0.00-0.20) Absolute Immature Granulocyte (auto 0.04 K/uL (0-1) Nucleated Red Blood Cells 0.0 % (0.0-0.19) Sodium Level 126 mmol/L (136-145) L Potassium Level 4.0 mmol/L (3.5-5.1) Chloride Level 90 mmol/L (101-111) *L Carbon Dioxide Level 33 mmol/L (21-32) H Blood Urea Nitrogen 16 mg/dL (7-18) Creatinine 0.7 mg/dL (0.5-1.3) Glomerular Filtration Rate Calc 117 mL/min (>90) Random Glucose 138 mg/dL (70-105) H Total Calcium 8.4 mg/dL (8.5-10.1) L Salicylates Level < 2.8 mg/dL (2.8-20.0) L Acetaminophen Level < 1 mcg/mL (10-29) L Serum Alcohol 6 mg/dL (0-10) Labs Reviewed?: Yes MDM CC: Suicidal homicidal ideations Historian: Patient Comorbidities: Anxiety, depression, diabetes type 2, hypertension Limitations by social determinants of health: None Vital signs: Stable Differential diagnosis: SI/HI/auditory visual hallucinations, drug abuse, other. Labs (independently ordered and interpreted by me): CBC is normal, electrolytes show chloride 90 sodium 127 consistent with dehydration, otherwise unremarkable UDS negative, alcohol negative, salicylate negative, acetaminophen negative Treatment in ED: 1 L normal saline in the Patient has been cleared for behavioral evaluation. [facility] behavioral states patient does not meet criteria for inpatient treatment. Safety plan provided for patient and advised outpatient treatment. ED Course Orders Procedure Category Date Status Time Cbc With Differential LAB 07/04/24 Complete 15:48 Basic Metabolic Panel LAB 07/04/24 Complete 15:48 Alcohol, Blood LAB 07/04/24 Complete 15:48 Acetaminophen LAB 07/04/24 Complete 15:48 Salicylate LAB 07/04/24 Complete 15:48 Drug Screen Urine LAB 07/04/24 Complete 15:48 0.9%Nacl 1000ml (Ns PHA 07/04/24 Complete 1000ml) 18:30 Current Medications Medications (Trade) Dose Ordered Sig/Scooby Route PRN Reason Start Time Stop Time Status Last Admin Dose Admin Sodium Chloride 1,000 ml @ 0 mls/hr ONCE ONCE IV 07/04/24 18:30 07/04/24 18:31 DC Vital Signs Date Time Temp Pulse Resp B/P (MAP) Pulse Ox O2 Delivery O2 Flow Rate FiO2 07/04/24 19:43 99.0 80 16 125/87 98 Room Air* 0 21 07/04/24 15:48 99.0 83 16 121/81 98 Room Air 0 DX & DISP Disposition: Discharge Departure Impression: Primary Impression: Suicide ideation Condition: Stable Additional Instructions: Discharge home. Rest. Follow up with primary care in 24 hours. Return to the ER for any acute changes or worsening symptoms. If any medications were prescribed take as directed. Okay to continue home medications unless otherwise discussed during your visit in the emergency room today. Patient was also advised to follow-up with primary care physician in 1 to 2 days for continued monitoring. Follow up with tropical outpatient. Referrals: SELF,REFERRAL (PCP) I performed the substantive portion of the visit. I have reviewed and personally made and approve the management plan that is documented in the notes by myself or the ANAY. I acknowledge full responsibility for the patient's management plan. MATT NAZARIO DO Jul 04, 2024 18:08 YOLI MONTANEZ Jul 04, 2024 20:13
--- NOTE | 2024-07-04 18:15 | NUR ---
DIGITAL RECRUITER AT BEDSIDE
[2024-07-04] MEDS: 0.9%NACL 1000ML 1,000 ML IV ONE (19:20)
--- NOTE | 2024-07-04 19:21 | NUR ---
PT IS REFUSING IV ADMINISTRATION.
--- NOTE | 2024-07-04 19:28 | NUR ---
PATIENT DID NOT MEET INPATIENT PSYCH CRITERIA. SAFETY PLAN WAS PUT IN PLACE, AND MOTHER WAS TO COME PUBLIC WEIGHER PATIENT, PATIENT WALKED OUT OF AMBULANCE BAY DOORS AND IS SMOKING ON AMBULANCE BAY DOCK. CYCLE MANAGER MADE AWARE.
--- NOTE | 2024-07-04 19:28 | NUR ---
PT LEFT WITHOUT DISCHARGE PAPERWORK. PT IS AWARE HE DOES NOT MEET [facility] EMERGENCY DEPARTMENT HOTLINE NUMBER GIVEN TO PT.
[2024-07-04 19:43] VITALS: BP 125/87; PULSE 80; RESP 16; TEMP 98.9; O2SAT 98
== END 2024-07-04 19:45 | disposition home or self-care (01) ==
LOC: EDH 15:46
DX: R45.851 Suicidal ideations (principal); E11.9 Type 2 diabetes mellitus without complications; F17.200 Nicotine dependence, unspecified, uncomplicated; F32.A Depression, unspecified; F41.9 Anxiety disorder, unspecified; I10 Essential (primary) hypertension; Z79.82 Long term (current) use of aspirin; Z79.84 Long term (current) use of oral hypoglycemic drugs; Z79.85 Long-term (current) use of injectable non-insulin antidiabetic drugs; Z79.899 Other long term (current) drug therapy
CPT/HCPCS: 99283; 80048; 80305; 85025; 36415; G0481

== ENCOUNTER 2024-07-12 15:36 | Emergency (ER) | payer MEDICAID ==
[~2024-07-12] VITALS: Ht 180.3 cm; Wt 113.4 kg
[2024-07-12] MEDS ORDERED: LORA10TA7 PO (16:04)
--- NOTE | 2024-07-12 16:07 | ERN ---
General Chief Complaint: Allergies Stated Complaint: ALLERGIES Time Seen by MD: 15:40 History of Present Illness Initial Comments 45-YEAR-OLD MALE WITH COMPLEX PSYCHIATRIC AND MEDICAL HISTORY INCLUDING HYPERTENSION TYPE 2 DIABETES MELLITUS, SCHIZOPHRENIA, BIPOLAR DISORDER, ANXIETY PRESENTED TO THE ED WITH COMPLAINTS OF INTERMITTENT NOSEBLEEDS AND ALLERGIC SYMPTOMS OF RUNNING NOSE, NASAL CONGESTION, SNEEZING. HE REPORTS THAT THIS HAS BEEN ONGOING FOR SEVERAL YEARS, WITH INCREASED FREQUENCY OVER THE PAST FEW MONTHS TYPICALLY SELF-LIMITING. DENIES ANY SIGNIFICANT TRAUMA OR NASAL INSTRUMENTATION. HE ATTRIBUTES NOSEBLEEDS DUE TO DRY AIR AND FREQUENT NOSE BLOWING DUE TO ALLERGIES. HAS A HISTORY OF MULTIPLE ED VISITS FOR FAMILIAR COMPLAINTS HAVE BEEN LABELED A FREQUENT HEALTHCARE USER. NO ACUTE DISTRESS CURRENTLY HE IS HEMODYNAMICALLY STABLE AMBULATORY. HE DENIES HEADACHE, DIZZINESS, FEVER CHEST PAIN OR RECENT TRAUMA. NO ACTIVE BLEEDING NOTED ON ARRIVAL. Allergies: Coded Allergies: No Known Drug Allergies (Verified Allergy, Unknown, 09/14/15) Home Meds Active Scripts Loratadine (Loratadine) 10 Mg Tablet, 1 TAB PO DAILY for allergy symptoms for 10 Days, #10 TAB 0 Refills Prov:LAWRENCE VARGAS MD 07/12/24 Lactulose (Kristalose) 20 Gram Packet, 20 GM PO DAILY for 5 Days, #7 PKT Prov:RAMIRO GALLARDO WINDOWS SECURITY ANALYST 02/07/24 Phenazopyridine HCl (Pyridium) 200 Mg Tab, 200 MG PO TID for 5 Days, #15 TAB Prov:ANTONINO BUNCH MD 01/16/24 Ketorolac Tromethamine (Toradol) 10 Mg Tab, 10 MG PO TIDP for 5 Days, #15 TAB Prov:ANTONINO BUNCH MD 01/16/24 Hydrocortisone Acetate (Hydrocortisone Acetate) 25 Mg Supp.rect, 25 MG RC BID for 7 Days, #1 EA Prov:TRISTIN LOBATO WINDOWS SECURITY ANALYST 11/02/23 Famotidine (Famotidine) 20 Mg Tablet, 20 MG PO BID for 14 Days, #28 TAB Prov:ARTURO GARVIN AIR QUALITY ENGINEER 07/27/23 Cephalexin (Cephalexin) 500 Mg Tablet, 500 MG PO BID, #14 TAB 0 Refills Prov:SANCHO SIEGEL AGPCNP 06/14/23 Reported Medications Fluticasone Propionate (Fluticasone Propionate) 50 Mcg Blst.w.dev, 50 MCG IH BID 06/13/23 Semaglutide (Ozempic) 0.25 Mg/0.368 Ml Pen.injctr, 0.5 MG SQ QWEEK 06/13/23 Aspirin (ASPIRIN 81MG CHEW TAB) 81 Mg Tab.chew, 81 MG PO DAILY, TAB.CHEW 06/13/23 Loratadine (Loratadine) 10 Mg Tablet, 10 MG PO DAILY, TAB 06/13/23 Valbenazine Tosylate (Ingrezza) 80 Mg Capsule, 80 MG PO HS, CAP 06/13/23 Hydroxyzine Pamoate (Hydroxyzine Pamoate) 50 Mg Capsule, 50 MG PO BID PRN for ANXIETY/AGITATION, CAP 06/13/23 Trazodone HCl (Trazodone HCl) 150 Mg Tablet, 150 MG PO HS, TAB 06/13/23 Olanzapine (Olanzapine) 20 Mg Tablet, 20 MG PO HS, TAB 06/13/23 Fluoxetine (Fluoxetine HCl) 100 % Powder, 20 GM MC DAILY, APPL 06/13/23 Divalproex Sodium (Depakote ER) 500 Mg Tab.er.24h, 500 MG PO BID, TAB 06/13/23 Atorvastatin Calcium (Atorvastatin Calcium) 20 Mg Tablet, 20 MG PO DAILY, TAB 06/13/23 Insulin Detemir (Levemir) 100 Unit/Ml Vial, 20 UNIT SQ HS, VIAL 06/13/23 Empagliflozin (Jardiance) 10 Mg Tablet, 10 MG PO DAILY, TAB 06/13/23 Metformin HCl (Metformin HCl) 1,000 Mg Tablet, 1000 MG PO BID, TAB 06/13/23 Metoprolol Succinate (Metoprolol Succinate) 25 Mg Tab.er.24h, 25 MG PO HS, TAB 06/13/23 Lisinopril (Lisinopril) 2.5 Mg Tablet, 2.5 MG PO DAILY, TAB 06/13/23 Paliperidone Palmitate (Invega Sustenna) 234 Mg/1.5 Ml Disp.syrin, 234 MG IM MONTHLY, DIS.SYR 09/14/15 Past Medical History Past Medical History: Anxiety, Bipolar, Diabetes-Type II, High Cholesterol, Hypertension, Schizophrenia Past Surgical History: Other Surgical History Other: ABD SX Family History Family History: Negative Social History Social History: Smokers, ETOH, Negative, Lives with family, Other ROS Dictation CONSTITUTIONAL: NO CHILLS, NO FEVER, NO WEAKNESS, NO DIAPHORESIS, NO MALAISE. HEAD/FACE: NO SIGNS OF TRAUMA. EENT: REPORTS NASAL CONGESTION, RHINORRHEA AND INTERMITTENT EPISTAXIS. NO FACIAL PAIN OR SINUS TENDERNESS. RESPIRATORY: NO COUGH, NO ORTHOPNEA, NO SOB, NO STRIDOR, NO WHEEZING. CARDIOVASCULAR: NO CHEST PAIN, NO EDEMA, NO PALPITATIONS, NO SYNCOPE. GASTROINTESTINAL/ABDOMINAL: NO ABDOMINAL PAIN, NO CONSTIPATION, NO DIARRHEA, NO NAUSEA, NO VOMITING. GENITOURINARY: NO ABNORMAL DISCHARGE, NO DYSURIA, NO FREQUENT URINATION, NO HEMATURIA. NO COMPLAINTS OF PAIN IN THE GENITALS. MUSCULOSKELETAL: NO BACK PAIN, NO GOUT, NO JOINT PAIN, NO JOINT SWELLING, NO MUSCLE PAIN, NO MUSCLE STIFFNESS, NO NECK PAIN. INTEGUMENTARY: CHANGE IN COLOR, NO CHANGE IN HAIR/NAILS, NO DRYNESS, NO LESION, NO LUMPS, PAINFUL BLISTERS, RASH ON THE LEFT MEDIAL LEG AND WORSENING SWELLING NEUROLOGICAL/PSYCH: NO ANXIETY, NOT DEPRESSED, NO EMOTIONAL PROBLEM, NO HEADACHE, NO NUMBNESS, NO PRE-EXISTING DEFICIT, NO HISTORY OF SEIZURES, NO TREMORS, NO WEAKNESS. HEMATOLOGIC/LYMPHATIC: NOT ANEMIC, NO HISTORY OF BLOOD CLOTS, NO APPARENT BLEEDING, NO BRUISING, GLANDS NOT SWOLLEN. ALL SYSTEMS NEGATIVE, EXCEPT NOTED. Physical Exam Physical Exam Dictation VITAL SIGNS: REVIEWED. GENERAL APPEARANCE: ALERT, ORIENTED X3, NO ACUTE DISTRESS, OBESE. HEAD AND FACE: NON-TRAUMATIC. EYES: PERRL, PINK CONJUNCTIVAS, EYELID NO TRAUMA, ANTERIOR CHAMBER CLEAR. EARS: PINNAS INTACT AND NO SIGNS OF TRAUMA OR ERYTHEMA. EAR CANALS CLEAR AND NO DISCHARGE. TMS NO ERYTHEMA. NOSE: NO DISCHARGE, NO BLEEDING. MILD NASAL MUCOSAL DRYNESS AND ERYTHEMA NOTED. NASAL SEPTUM INTACT. NO SEPTAL HEMATOMA OR TRAUMA. OROPHARYNX: MOUTH NORMAL, TEETH NO CARIES, TONGUE PINK. PHARYNX CLEAR, NO ER YTHEMA. TONSILS NO EXUDATES, NO ABSCESSES NOTED. MUCOUS MEMBRANE MOIST. NECK: SUPPLE, NON-TENDER, NO THYROMEGALY, NO MASSES, NO JVD, NO BRUITS. BREAST: DEFERRED. CHEST: NO TENDERNESS, NO CREPITUS, NO PARADOXICAL MOVEMENT, NO RETRACTIONS. LUNGS: CLEAR, WELL-VENTILATED, SYMMETRIC, NO RALES, NO WHEEZING, NO RHONCHI, NO STRIDOR, GOOD BREATH SOUNDS BILATERALLY. HEART: REGULAR RATE, REGULAR RHYTHM, NO MURMUR, NO GALLOPS. VASCULAR: NO PERIPHERAL EDEMA. ABDOMEN: SOFT, POSITIVE BOWEL SOUNDS, NONDISTENDED, NO GUARDING, NONTENDER, NO REBOUND, NO MASSES NO HEPATOMEGALY, NO SPLENOMEGALY, NO PIMENTEL'S SIGN, NO HERNIAS. RECTAL: DEFERRED. GENITAL: DEFERRED. NEUROLOGICAL: NORMAL SPEECH, GROSS MOTOR FUNCTION INTACT, GROSS SENSORY FUNCTION INTACT. MUSCULOSKELETAL: NECK NONTENDER, FULL RANGE OF MOTION, BACK NONTENDER, FULL RANGE OF MOTION. EXTREMITIES: NONTENDER, FULL RANGE OF MOTION. SKIN: COLOR PINK, DRY, NO TURGOR, NO LACERATIONS, NO ABRASIONS, NO CONTUSIONS, . LYMPHATICS: DEFERRED. MDM MDM: DIFFERENTIAL DIAGNOSIS: ALLERGIC RHINITIS WITH MUCOSAL FRAGILITY, NASAL SEPTAL DRYNESS AND CRUSTING, HYPERTENSION INDUCED EPISTAXIS, COAGULOPATHY, DRUG-INDUCED EPISTAXIS, NASAL POLYP OR TUMOR. BUT NO VISIBLE MASSES, NO RED FLAGS, DENIED NSAIDS, COCAINE ABUSE COAGULOPATHY LESS LIKELY, NO MEDS LIKE ANTICOAGULANTS AND NORMAL VITALS. RATIONALE: TESTS CONSIDERED AND ORDERED SECONDARY TO SHARED DECISION MAKING INCLUDE: LABS, ECG AND RADIOLOGY PREVIOUS OUTSIDE RECORDS REVIEWED: OLD ER VISITS. RISK OF COMPLICATION AND/OR MORBIDITY OR MORTALITY OF PATIENT MANAGEMENT: NONE MEDICATIONS-PER MEDICATION RECONCILIATION NEED FOR HOSPITALIZATION: PATIENT DOES MEET CRITERIA FOR HOSPITALIZATION. NEED FOR EMERGENCY MAJOR/MINOR SURGERY: NO THERE ARE NO SOCIAL CONCERNS WITH THIS PATIENT. PRESCRIPTION DRUG MANAGEMENT PRESCRIPTIONS WILL INCLUDE SYMPTOMATIC CARE PATIENT'S PRIOR EXTERNAL MEDICAL RECORDS FROM OTHER ER VISITS WERE REVIEWED BY ME INDICATED. PRIOR TESTING AND RESULTS FROM PREVIOUS VISITS WERE REVIEWED. PRIOR TESTS WERE TAKEN INTO ACCOUNT WITH MEDICAL DECISION MAKING AND RESOURCE UTILIZATION, INDEPENDENT HISTORIAN/HISTORIANS WERE USED TO OBTAIN COMPLETE MEDICAL HISTORY. I INDEPENDENTLY INTERPRETED THE TEST THAT WERE PERFORMED, RESULTS WERE REVIEWED BY ME AND CONSIDERED FINDINGS ON RADIOLOGY IF ORDERED. MEDICAL MANAGEMENT AND EXAMINATION INTERPRETATION DISCUSSIONS WERE HAD BY ME W ITH OTHER QUALIFIED HEALTHCARE PROFESSIONALS INDICATED FOR THE PATIENT'S CARE. THIS IS A LOW COMPLEXITY AND COUNTER INVOLVING EVALUATION OF CHRONIC RECURRENT EPISTAXIS AND ALLERGIC RHINITIS. NO RED FLAG SYMPTOMS EXAMPLE UNCONTROLLED BLEEDING, HEMODYNAMIC INSTABILITY, ANEMIA NEOPLASM SIGNS ARE PRESENT. PHYSICAL EXAMINATION AND HISTORY SUPPORT BENIGN ETIOLOGY. NO ACUTE PSYCHIATRIC OR MEDICAL DECOMPENSATION IDENTIFIED. PATIENT HAS FREQUENT NONEMERGENT ED VISITS, WHICH HAS ADDRESS THROUGH DISCHARGE COUNSELING AND OUTPATIENT FOLLOW-UP INSTRUCTIONS. PRESCRIBED HIM OVER THE COUNTER LORATADINE 10 MG P.O. DAILY INTO 5 DAYS P.R.N., NASAL SALINE SPRAY ADVISED. HIS VITAL SIGNS ARE MONITORED NASAL AND EXAM WITH OTOSCOPE WAS DONE NO LABS NEEDED. NO IMAGING NEEDED NO TRAUMA MASS OR SINUS CONCERNS ARE PRESENT. HIS DISCHARGED HOME IN A STABLE CONDITION. ED Course Orders Procedure Category Date Status Time Loratadine 10 Mg PHA 07/12/24 Complete (Loratadine 10 Mg) 16:30 Current Medications Medications (Trade) Dose Ordered Sig/Scooby Route PRN Reason Start Time Stop Time Status Last Admin Dose Admin Loratadine (LORATAdine 10 mg) 10 mg ONCE ONCE PO 07/12/24 16:30 07/12/24 16:31 DC Vital Signs Date Time Temp Pulse Resp B/P (MAP) Pulse Ox O2 Delivery O2 Flow Rate FiO2 07/12/24 16:37 98.2 78 16 137/65 Room Air* 0 21 07/12/24 15:39 98.2 70 17 148/82 99 Room Air 0 DX & DISP Disposition: Discharge Departure Impression: Primary Impression: Allergic rhinitis Additional Impression: Mild epistaxis Critical Time: 30 minutes Condition: Stable Assign Patient to: ATTESTATION BY PHYSICIAN I have seen and examined the patient. I reviewed the documentation, medical decision making, and treatment plan as noted by the resident above. I agree with the findings and plan of care. Wesly Segura DO Scripts Loratadine (Loratadine) 10 Mg Tablet 1 TAB PO DAILY for allergy symptoms for 10 Days, #10 TAB 0 Refills Prov: LAWRENCE VARGAS MD 07/12/24 Additional Instructions: NASAL SPRAY AND HUMIDIFIER, APPLY PETROLEUM JELLY INSIGHT NOSTRILS B.I.D.. TAKE LORATADINE FOR ALLERGIES NEEDED. AVOID DRY ENVIRONMENT, NASAL TRAUMA. FOLLOW UP WITH PCP WITHIN 1 WEEK. FOLLOW- UP WITH ENT IF SYMPTOMS WORSEN OR PERSIST. PSYCHIATRY FOLLOW-UP FOR ONGOING MEDICATION COMPLIANCE AND OUTPATIENT MANAGEMENT. RETURN TO ED IF YOU HAVE PROFUSE OR RECURRENT NOSEBLEEDS. DIZZINESS, WEAKNESS OR FAINTING, CONFUSION OR WORSENING PSYCHIATRIC SYMPTOMS. ANY NEW OR CONCERNING SYMPTOMS. Referrals: SELF,REFERRAL (PCP) ATTESTATION BY PHYSICIAN I have seen and examined the patient. I reviewed the documentation, medical decision making, and treatment plan as noted by the RESIDENT above. I agree with the findings and plan of care. I performed a substantive portion of the visit. I have reviewed and personally made and approve the management plan that is documented in the notes by myself with ANAY/resident. I acknowledged full responsibility for the patient's managem ent plan. WESLY SEGURA DO, MD, RAGHAVA R MD Jul 12, 2024 16:07 WESLY SEGURA DO Jul 12, 2024 17:07
[2024-07-12] MEDS ORDERED: LORATAdine 10 mg 10 MG TABLET PO ONE (16:30)
[2024-07-12 16:37] VITALS: BP 137/65; PULSE 78; RESP 16; TEMP 98.3
== END 2024-07-12 16:39 | disposition home or self-care (01) ==
LOC: EDH 15:36
DX: R04.0 Epistaxis (principal); J30.9 Allergic rhinitis, unspecified; E11.9 Type 2 diabetes mellitus without complications; E78.00 Pure hypercholesterolemia, unspecified; F17.200 Nicotine dependence, unspecified, uncomplicated; F20.9 Schizophrenia, unspecified; F31.9 Bipolar disorder, unspecified; F41.9 Anxiety disorder, unspecified; I10 Essential (primary) hypertension; Z79.82 Long term (current) use of aspirin; Z79.84 Long term (current) use of oral hypoglycemic drugs; Z79.85 Long-term (current) use of injectable non-insulin antidiabetic drugs; Z79.899 Other long term (current) drug therapy
CPT/HCPCS: 99283

== ENCOUNTER 2024-07-20 12:42 | Emergency (ER) | payer MEDICAID ==
[~2024-07-20] VITALS: Ht 180.3 cm; Wt 113.4 kg
[2024-07-20 12:43] VITALS: BP 106/63; PULSE 85; RESP 20; TEMP 97.9
--- NOTE | 2024-07-20 12:47 | ERN ---
ED Note History of Present Illness Stated Complaint: DIZZINESS Chief Complaint: Dizzy/Light Headed Time Seen by MD: 12:43 Dictation: PATIENT IS A 44-YEAR-OLD MALE COMING IN VIA EMS WITH SEVERAL COMPLAINTS. FIRST COMPLAINT IS HE STATES HE IS FEELING LIGHTHEADED WITH SOME DIZZINESS ONSET 1 HOUR PRIOR TO ARRIVAL. HE STATES IT WAS IN HIS LIVING ROOM WHEN IT STARTED. NO NAUSEA VOMITING NO HEADACHE. STATES DOES NOT HAVE ANY HISTORY OF CVAS. NIH IS 0 AT THIS TIME, MOVES ALL EXTREMITIES 5/5 BILATERALLY. SECOND COMPLAINT IS HE HAS ANTERIOR CHEST WALL PAIN ONSET AT THE SAME TIME STATES HE HAS A HISTORY OF DIABETES HYPERTENSION AND TAKES HEART PILLS. DOES NOT HAVE A WOOD CABINETMAKER'S STATES HE SEES LIVES AT AN [facility]. BLOOD SUGAR AND ROUTE WAS 244 PER EMS, STATES HE TOOK HIS METFORMIN THIS. Allergies: Coded Allergies: No Known Drug Allergies (Verified Allergy, Unknown, 09/14/15) Home Meds Active Scripts Loratadine (Loratadine) 10 Mg Tablet, 1 TAB PO DAILY for allergy symptoms for 10 Days, #10 TAB 0 Refills Prov:LAWRENCE VARGAS MD 07/12/24 Lactulose (Kristalose) 20 Gram Packet, 20 GM PO DAILY for 5 Days, #7 PKT Prov:RAMIRO GALLARDO NP 02/07/24 Phenazopyridine HCl (Pyridium) 200 Mg Tab, 200 MG PO TID for 5 Days, #15 TAB Prov:ANTONINO BUNCH MD 01/16/24 Ketorolac Tromethamine (Toradol) 10 Mg Tab, 10 MG PO TIDP for 5 Days, #15 TAB Prov:ANTONINO BUNCH MD 01/16/24 Hydrocortisone Acetate (Hydrocortisone Acetate) 25 Mg Supp.rect, 25 MG RC BID for 7 Days, #1 EA Prov:TRISTIN LOBATO CHIP BIN OPERATOR 11/02/23 Famotidine (Famotidine) 20 Mg Tablet, 20 MG PO BID for 14 Days, #28 TAB Prov:ARTURO GARVIN [facility] 07/27/23 Cephalexin (Cephalexin) 500 Mg Tablet, 500 MG PO BID, #14 TAB 0 Refills Prov:SANCHO SIEGEL AGPCNP 06/14/23 Reported Medications Fluticasone Propionate (Fluticasone Propionate) 50 Mcg Blst.w.dev, 50 MCG IH BID 06/13/23 Semaglutide (Ozempic) 0.25 Mg/0.368 Ml Pen.injctr, 0.5 MG SQ QWEEK 06/13/23 Aspirin (ASPIRIN 81MG CHEW TAB) 81 Mg Tab.chew, 81 MG PO DAILY, TAB.CHEW 06/13/23 Loratadine (Loratadine) 10 Mg Tablet, 10 MG PO DAILY, TAB 06/13/23 Valbenazine Tosylate (Ingrezza) 80 Mg Capsule, 80 MG PO HS, CAP 06/13/23 Hydroxyzine Pamoate (Hydroxyzine Pamoate) 50 Mg Capsule, 50 MG PO BID PRN for ANXIETY/AGITATION, CAP 06/13/23 Trazodone HCl (Trazodone HCl) 150 Mg Tablet, 150 MG PO HS, TAB 06/13/23 Olanzapine (Olanzapine) 20 Mg Tablet, 20 MG PO HS, TAB 06/13/23 Fluoxetine (Fluoxetine HCl) 100 % Powder, 20 GM MC DAILY, APPL 06/13/23 Divalproex Sodium (Depakote ER) 500 Mg Tab.er.24h, 500 MG PO BID, TAB 06/13/23 Atorvastatin Calcium (Atorvastatin Calcium) 20 Mg Tablet, 20 MG PO DAILY, TAB 06/13/23 Insulin Detemir (Levemir) 100 Unit/Ml Vial, 20 UNIT SQ HS, VIAL 06/13/23 Empagliflozin (Jardiance) 10 Mg Tablet, 10 MG PO DAILY, TAB 06/13/23 Metformin HCl (Metformin HCl) 1,000 Mg Tablet, 1000 MG PO BID, TAB 06/13/23 Metoprolol Succinate (Metoprolol Succinate) 25 Mg Tab.er.24h, 25 MG PO HS, TAB 06/13/23 Lisinopril (Lisinopril) 2.5 Mg Tablet, 2.5 MG PO DAILY, TAB 06/13/23 Paliperidone Palmitate (Invega Sustenna) 234 Mg/1.5 Ml Disp.syrin, 234 MG IM MONTHLY, DIS.SYR 09/14/15 Past Medical History Past Medical History: Anxiety, Bipolar, Diabetes-Type II, High Cholesterol, Hypertension, Schizophrenia Surgical History: Other Surgical History Other: ABD SX Family History: Negative Social History: Smokers, ETOH, Negative, Lives with family, Other RN Note Reviewed/Agreed w/PFSH: Yes Review of System Dictation CONSTITUTIONAL: NEGATIVE EXCEPT FOR HPI HEAD/FACE: NEGATIVE EXCEPT FOR HPI EENT: NEGATIVE EXCEPT FOR HPI RESPIRATORY: NEGATIVE EXCEPT FOR HPI ANTERIOR CHEST PAIN GASTROINTESTINAL/ABDOMINAL: NEGATIVE EXCEPT FOR HPI GENITOURINARY: NEGATIVE EXCEPT FOR HPI MUSCULOSKELETAL: NEGATIVE EXCEPT FOR HPI INTEGUMENTARY: NEGATIVE EXCEPT FOR HPI NEUROLOGICAL/PSYCH: NEGATIVE EXCEPT FOR HPI LIGHTHEADED/DIZZY HEMATOLOGIC/LYMPHATIC: NEGATIVE EXCEPT FOR HPI ALL SYSTEMS NEGATIVE, EXCEPT NOTED ABOVE. 13 POINT REVIEW OF SYSTEMS ASSESSED AND ALL NEGATIVE EXCEPT FOR ABOVE. Initial Vital Sign VS Vital Signs Date Time Temp Pulse Resp B/P (MAP) Pulse Ox O2 Delivery O2 Flow Rate FiO2 07/20/24 12:43 97.9 85 20 106/63 98 Room Air Physical Exam Dictation VITAL SIGNS REVIEWED GENERAL APPEARANCE: ALERT, ORIENTED X 3, NO ACUTE DISTRESS, WELL DEVELOPED, NOURISHED. HEAD AND FACE: NON-TRAUMATIC. EYES: PERRL, PINK CONJUNCTIVAS, EYELID NO TRAUMA, ANTERIOR CHAMBER WITH ARCUS SENILIS. EARS: PINNAS INTACT AND NO SIGNS OF TRAUMA OR ERYTHEMA EAR CANALS CLEAR AND NO DISCHARGE TM NO ERYTHEMA NOSE: NO DISCHARGE, NO BLEEDING. OROPHARYNX: MOUTH NORMAL, TONGUE PINK, PHARYNX CLEAR,NO ERYTHEMA, TONSILS NO EXUDATES, NO ABSCESSES NOTED, MUCOUS MEMBRANE MOIST NECK: SUPPLE, NON-TENDER, NO THYROMEGALY, NO MASSES, NO JVD, NO BRUITS BREAST:DEFERRED CHEST:NO TENDERNESS, NO CREPITUS, NO PARADOXICAL MOVEMENT, NO RETRACTIONS LUNGS:CLEAR, WELL-VENTILATED, SYMMETRIC, NO RALES, NO WHEEZING, NO RHONCHI, NO STRIDOR, GOOD BREATH SOUNDS BILATERALLY HEART: REGULAR RATE, REGULAR RHYTHM, NO MURMUR, NO GALLOPS VASCULAR: NO PERIPHERAL EDEMA, ABDOMEN: SOFT, POSITIVE BOWEL SOUNDS, NONDISTENDED, NO GUARDING, NONTENDER, NO REBOUND, NO MASSES NO HEPATOMEGALY, NO SPLENOMEGALY, NO PIMENTEL'S SIGN, NO HERNIAS. RECTAL: DEFERRED GENITAL: DEFERRED NEUROLOGICAL: NORMAL SPEECH, MOTOR FUNCTION INTACT, SENSORY FUNCTION INTACT NIH IS 0, MOVES ALL EXTREMITIES 5/5 BILATERALLY. MUSCULOSKELETAL: NECK NONTENDER, FULL RANGE OF MOTION, BACK NONTENDER, FULL RANGE OF MOTION, EXTREMITIES: NONTENDER, FULL RANGE OF MOTION SKIN: COLOR PINK, DRY, NO TURGOR, NO RASH, NO LACERATIONS, NO ABRASIONS, NO CONTUSIONS. LYMPHATIC: DEFERRED Results (Laboratory/Radiology) Laboratory/Radiology Laboratory Tests Test 07/20/24 13:04 White Blood Count 8.9 K/uL (4.8-10.8) Red Blood Count 4.96 MIL/uL (4.50-6.20) Hemoglobin 15.1 g/dL (14.0-18.0) Hematocrit 44.2 % (42-54) Mean Corpuscular Volume 89.1 fL (79-99) Mean Corpuscular Hemoglobin 30.4 pg (27.0-33.0) Mean Corpuscular Hemoglobin Concent 34.2 g/dL (32.0-36.0) Red Cell Distribution Width 13.1 % (11.0-15.5) Platelet Count 188 K/uL (130-400) Mean Platelet Volume 11.0 fL (7.5-10.5) H Immature Granulocyte % (Auto) 0.3 % (0-1) Neutrophils (%) (Auto) 59.3 % (40.0-77.0) Lymphocytes (%) (Auto) 27.0 % (21.0-51.0) Monocytes (%) (Auto) 12.0 % (3.0-13.0) Eosinophils (%) (Auto) 0.8 % (0.0-8.0) Basophils (%) (Auto) 0.6 % (0.0-5.0) Neutrophils # (Auto) 5.3 K/uL (1.8-7.7) Lymphocytes # (Auto) 2.4 K/uL (1.0-4.8) Monocytes # (Auto) 1.1 K/uL (0.1-1.0) H Eosinophils # (Auto) 0.07 K/uL (0.00-0.70) Basophils # (Auto) 0.05 K/uL (0.00-0.20) Absolute Immature Granulocyte (auto 0.03 K/uL (0-1) Nucleated Red Blood Cells 0.0 % (0.0-0.19) Sodium Level 143 mmol/L (136-145) Potassium Level 4.2 mmol/L (3.5-5.1) Chloride Level 104 mmol/L (101-111) Carbon Dioxide Level 32 mmol/L (21-32) Blood Urea Nitrogen 14 mg/dL (7-18) Creatinine 0.8 mg/dL (0.5-1.3) Glomerular Filtration Rate Calc 112 mL/min (>90) Random Glucose 253 mg/dL (70-105) H Total Calcium 8.4 mg/dL (8.5-10.1) L Magnesium Level 1.60 mg/dL (1.80-2.40) L Troponin I High Sensitivity 7 ng/L (4-75) Labs Reviewed?: Yes EKG Comment: EKG not performed because patient left against medical advice from ER waiting room ED Course ED Course Orders Procedure Category Date Status Time Cbc With Differential LAB 07/20/24 Complete 12:44 Chest 1vw RAD 07/20/24 Resulted 12:44 12 Lead Ekg Tracing- EKG 07/20/24 Logged Technical 12:44 Magnesium LAB 07/20/24 Complete 12:44 Troponin I High LAB 07/20/24 Complete Sensitivity 12:44 Aspirin 325mg Tab PHA 07/20/24 Complete (Aspirin 325mg Tab) 13:00 Basic Metabolic Panel LAB 07/20/24 Complete 12:44 Current Medications Medications (Trade) Dose Ordered Sig/Scooby Route PRN Reason Start Time Stop Time Status Last Admin Dose Admin Aspirin (Aspirin 325mg Tab) 325 mg ONCE ONCE PO 07/20/24 13:00 07/20/24 13:01 DC Vital Signs Date Time Temp Pulse Resp B/P (MAP) Pulse Ox O2 Delivery O2 Flow Rate FiO2 07/20/24 12:43 97.9 85 20 106/63 98 Room Air Medical Decision Making [facility] 1425/patient left the emergency room against medical advice He told security he was going to the other hospital Did not sign any paperwork showing against medical advice DX & DISP Disposition: AMA Departure Impression: Primary Impression: Dizziness Additional Impression: Uncontrolled diabetes mellitus Condition: Stable Referrals: SELF,REFERRAL (PCP) Time of Disposition: 14:36 I have reviewed the case, and I agree with, Diagnosis and Plan TRISTIN LOBATO NP Jul 20, 2024 12:47
[2024-07-20] MEDS ORDERED: ASPIRIN 325MG TAB PO ONE (13:00)
[2024-07-20 13:20] LABS: BASOPHILS # (AUTO) 0.05 K/uL (0.00-0.20); BASOPHILS % (AUTO) 0.6 % (0.0-5.0); EOSINOPHILS # (AUTO) 0.07 K/uL (0.00-0.70); EOSINOPHILS % (AUTO) 0.8 % (0.0-8.0); HEMATOCRIT 44.2 % (42-54); IMMATURE GRANULOCYTE ABSOLUTE 0.03 K/uL (0-1); LYMPHOCYTES # (AUTO) 2.4 K/uL (1.0-4.8); MEAN CORPUSCULAR HEMOGLOBIN 30.4 pg (27.0-33.0); MEAN CORPUSCULAR HGB CONC 34.2 g/dL (32.0-36.0); MEAN CORPUSCULAR VOLUME 89.1 fL (79-99); MONOCYTES # (AUTO) 1.1 K/uL (0.1-1.0); NEUTROPHILS # (AUTO) 5.3 K/uL (1.8-7.7); NEUTROPHILS % (AUTO) 59.3 % (40.0-77.0); PLATELET COUNT (AUTO) 188 K/uL (130-400); RED BLOOD CELL COUNT(AUTO) 4.96 MIL/uL (4.50-6.20); RED CELL DISTRIBUTION WIDTH 13.1 % (11.0-15.5); WHITE BLOOD COUNT (AUTO) 8.9 K/uL (4.8-10.8)
[2024-07-20 13:28] LABS: CREATININE 0.8 mg/dL (0.5-1.3); MAGNESIUM 1.6 mg/dL (1.80-2.40); POTASSIUM 4.2 mmol/L (3.5-5.1)
--- NOTE | 2024-07-20 14:33 | HMCIMG ---
INDICATION: CHEST PAIN TECHNIQUE: CHEST 1VW COMPARISON: 05/16/2023 FINDINGS AND IMPRESSION: No acute consolidation or pleural effusion. Cardiac silhouette is within normal limits. Mild degenerative changes of the spine. The visualized upper abdomen appears unremarkable.
[2024-08-24] MEDS ORDERED: METO25TA6 PO (12:48)
[2024-08-24] MEDS ORDERED: PIOG15TA66 PO (12:48)
[2024-08-24] MEDS ORDERED: ROSU40TA88 PO (12:48)
[2024-08-24] MEDS ORDERED: SITA50TA PO (12:48)
[2024-08-24] MEDS ORDERED: FLUO40CA49 PO (12:48)
[2024-08-26] MEDS ORDERED: LACT-441 PO (22:25)
[2024-08-26] MEDS ORDERED: MAGN296S73 PO (22:25)
== END 2024-07-20 12:45 ==
LOC: EDH 12:42
DX: R42 Dizziness and giddiness (principal); E11.65 Type 2 diabetes mellitus with hyperglycemia; I10 Essential (primary) hypertension; E78.00 Pure hypercholesterolemia, unspecified; F17.200 Nicotine dependence, unspecified, uncomplicated; F20.9 Schizophrenia, unspecified; F41.9 Anxiety disorder, unspecified; Z79.82 Long term (current) use of aspirin; Z79.84 Long term (current) use of oral hypoglycemic drugs; Z79.85 Long-term (current) use of injectable non-insulin antidiabetic drugs; Z79.899 Other long term (current) drug therapy
CPT/HCPCS: 36415; 71045; 80048; 83735; 84484; 85025; 99281; 99284

== ENCOUNTER 2024-07-20 18:16 | Emergency (ER) | payer MEDICAID ==
[~2024-07-20] VITALS: Ht 180.3 cm; Wt 113.4 kg
[2024-07-20 18:17] VITALS: BP 120/81; PULSE 80; RESP 16; TEMP 98.2
--- NOTE | 2024-07-20 18:38 | ERN ---
General Chief Complaint: Suicidal Ideation Stated Complaint: SUICIDAL IDEATION Time Seen by MD: 18:25 Time Seen by Midlevel: 18:25 Source: patient History of Present Illness Initial Comments Patient was triaged and placed in hallway bed B. patient has been in our emergency department for 10 minutes. When I attempted to evaluate the patient he was nowhere to be found in the emergency department patient eloped Allergies: Coded Allergies: No Known Drug Allergies (Verified Allergy, Unknown, 09/14/15) Home Meds Active Scripts Loratadine (Loratadine) 10 Mg Tablet, 1 TAB PO DAILY for allergy symptoms for 10 Days, #10 TAB 0 Refills Prov:LAWRENCE VARGAS MD 07/12/24 Lactulose (Kristalose) 20 Gram Packet, 20 GM PO DAILY for 5 Days, #7 PKT Prov:RAMIRO GALLARDO NP 02/07/24 Phenazopyridine HCl (Pyridium) 200 Mg Tab, 200 MG PO TID for 5 Days, #15 TAB Prov:ANTONINO BUNCH MD 01/16/24 Ketorolac Tromethamine (Toradol) 10 Mg Tab, 10 MG PO TIDP for 5 Days, #15 TAB Prov:ANTONINO BUNCH MD 01/16/24 Hydrocortisone Acetate (Hydrocortisone Acetate) 25 Mg Supp.rect, 25 MG RC BID for 7 Days, #1 EA Prov:TRISTIN LOBATO MOTOR EQUIPMENT SERGEANT 11/02/23 Famotidine (Famotidine) 20 Mg Tablet, 20 MG PO BID for 14 Days, #28 TAB Prov:ARTURO GARVIN MASTER CRAFTSMAN 07/27/23 Cephalexin (Cephalexin) 500 Mg Tablet, 500 MG PO BID, #14 TAB 0 Refills Prov:SANCHO SIEGEL AGPCNP 06/14/23 Reported Medications Fluticasone Propionate (Fluticasone Propionate) 50 Mcg Blst.w.dev, 50 MCG IH BID 06/13/23 Semaglutide (Ozempic) 0.25 Mg/0.368 Ml Pen.injctr, 0.5 MG SQ QWEEK 06/13/23 Aspirin (ASPIRIN 81MG CHEW TAB) 81 Mg Tab.chew, 81 MG PO DAILY, TAB.CHEW 06/13/23 Loratadine (Loratadine) 10 Mg Tablet, 10 MG PO DAILY, TAB 06/13/23 Valbenazine Tosylate (Ingrezza) 80 Mg Capsule, 80 MG PO HS, CAP 06/13/23 Hydroxyzine Pamoate (Hydroxyzine Pamoate) 50 Mg Capsule, 50 MG PO BID PRN for ANXIETY/AGITATION, CAP 06/13/23 Trazodone HCl (Trazodone HCl) 150 Mg Tablet, 150 MG PO HS, TAB 06/13/23 Olanzapine (Olanzapine) 20 Mg Tablet, 20 MG PO HS, TAB 06/13/23 Fluoxetine (Fluoxetine HCl) 100 % Powder, 20 GM MC DAILY, APPL 06/13/23 Divalproex Sodium (Depakote ER) 500 Mg Tab.er.24h, 500 MG PO BID, TAB 06/13/23 Atorvastatin Calcium (Atorvastatin Calcium) 20 Mg Tablet, 20 MG PO DAILY, TAB 06/13/23 Insulin Detemir (Levemir) 100 Unit/Ml Vial, 20 UNIT SQ HS, VIAL 06/13/23 Empagliflozin (Jardiance) 10 Mg Tablet, 10 MG PO DAILY, TAB 06/13/23 Metformin HCl (Metformin HCl) 1,000 Mg Tablet, 1000 MG PO BID, TAB 06/13/23 Metoprolol Succinate (Metoprolol Succinate) 25 Mg Tab.er.24h, 25 MG PO HS, TAB 06/13/23 Lisinopril (Lisinopril) 2.5 Mg Tablet, 2.5 MG PO DAILY, TAB 06/13/23 Paliperidone Palmitate (Invega Sustenna) 234 Mg/1.5 Ml Disp.syrin, 234 MG IM MONTHLY, DIS.SYR 09/14/15 Past Medical History Past Medical History: Anxiety, Bipolar, Diabetes-Type II, High Cholesterol, Hypertension, Schizophrenia Past Surgical History: Other Surgical History Other: ABD SX Family History Family History: Negative Social History Social History: Smokers, ETOH, Negative, Lives with family, Other ROS Dictation Patient was triaged and placed in hallway bed B. patient has been in our em ergency department for 10 minutes. When I attempted to evaluate the patient he was nowhere to be found in the emergency department patient eloped Physical Exam Physical Exam Dictation Patient was triaged and placed in hallway bed B. patient has been in our emergency department for 10 minutes. When I attempted to evaluate the patient he was nowhere to be found in the emergency department patient eloped MDM Patient was triaged and placed in hallway bed B. patient has been in our emergency department for 10 minutes. When I attempted to evaluate the patient he was nowhere to be found in the emergency department patient eloped ED Course Orders Procedure Category Date Status Time Suicide Precautions CPOE 07/20/24 Transmitted 18:21 Vital Signs Date Time Temp Pulse Resp B/P (MAP) Pulse Ox O2 Delivery O2 Flow Rate FiO2 07/20/24 18:17 98.2 80 16 120/81 100 Room Air 0 DX & DISP Disposition: Other(Comment) Departure Impression: Primary Impression: Eloped from emergency department Condition: Stable Referrals: SELF,REFERRAL (PCP) I have reviewed the case, and I agree with, Diagnosis and Plan I performed the substantive portion of the visit. I have reviewed and per sonally made and approve the management plan that is documented in the note by myself or the ANAY. I acknowledge for responsibility for the patient's management plan. LILLIE MEDRANO Jul 20, 2024 18:38
--- NOTE | 2024-07-20 19:04 | NUR ---
PER JOSE ANGEL YBARRA THE PT ELOPED THRU THE BACK EMS BAY DOORS TO SMOKE AND WANTED TO BE SEEN. PT WAS ADVISED THAT HE NOW ALLOWED TO LEAVE TO SMOKE AND WALK BACK IN. HE IS TO RE REGISTER. PT CHANGED HIS MIND AND LEFT.
== END 2024-07-20 19:07 | disposition left against medical advice (07) ==
LOC: EDH 18:16
DX: R45.851 Suicidal ideations (principal); E78.00 Pure hypercholesterolemia, unspecified; E11.9 Type 2 diabetes mellitus without complications; I10 Essential (primary) hypertension; F41.9 Anxiety disorder, unspecified; F20.9 Schizophrenia, unspecified; F17.200 Nicotine dependence, unspecified, uncomplicated; Z79.82 Long term (current) use of aspirin; Z79.84 Long term (current) use of oral hypoglycemic drugs; Z79.85 Long-term (current) use of injectable non-insulin antidiabetic drugs; Z79.899 Other long term (current) drug therapy
CPT/HCPCS: 99281

== ENCOUNTER → 2024-09-25 | Outpatient (CLI) | payer MEDICAID ==
[~2024-09-25] MED LIST changes: -ATOR20TA65 PO; -CEPH500T PO; -DIVA500T69 PO; -FAMO20TA8 PO; -FLUO25PO10 MC; +FLUO40CA49 PO; -FLUT50BL2 IH; +GADOTERATE MEGLUMINE 10 MMOL/20 ML VIAL IV ONE; -HYDR25SU7 RC; -INSU100V12 SQ; -KETO10 PO; +LACT-441 PO; -LACT20PA6 PO; +MAGN296S73 PO; -METO-408 PO; +METO25TA6 PO; -OLAN20TA82 PO; -PALI234D IM; -PHEN-847 PO; +PIOG15TA66 PO; +ROSU40TA88 PO; -SEMA0.258 SQ; +SITA50TA PO
--- NOTE | 2024-09-25 14:58 | HMCIMG ---
MR ABDOMEN W/WO CON REASON: N20 Calculus of kidney COMPARISON: None TECHNIQUE: Routine imaging protocol was performed in the axial and coronal plane with T1, proton density, T2 and gradient recalled sequences. Images are also obtained pre and post gadolinium contrast infusion, 20 cc Clariscan IV. FINDINGS: There are normal-appearing kidneys. There is no evidence of mass, stone or hydronephrosis. No focal areas of abnormal contrast enhancement. Cortical thickness appears preserved. Proximal ureters appear unremarkable. Visualized portions of the liver and spleen appear normal. Pancreas is unremarkable. Gallbladder is absent. There are no focal fluid collections. There is no free fluid. Anterior abdominal wall appears intact. Bones and soft tissues appear normal. IMPRESSION: 1. Unremarkable pre and postcontrast MRI abdomen with attention to the kidneys.
== END | disposition home or self-care (01) ==
LOC: RAH 07:41
PROVIDERS: ATTEND Urology
DX: N13.39 Other hydronephrosis (principal); N20.0 Calculus of kidney; Z90.49 Acquired absence of other specified parts of digestive tract
CPT/HCPCS: 74183; A9575

== ENCOUNTER 2024-09-26 23:01 | Emergency (ER) | payer MEDICAID ==
[~2024-09-26] VITALS: Ht 180.3 cm; Wt 97.5 kg
[~2024-09-26 23:01] MED LIST changes: -GADOTERATE MEGLUMINE 10 MMOL/20 ML VIAL IV ONE
[2024-09-26] MEDS: 0.9%NACL 1000ML 1,000 ML IV ONE (23:36)
[2024-09-26 23:47] LABS: BASOPHILS # (AUTO) 0.04 K/uL (0.00-0.20); BASOPHILS % (AUTO) 0.3 % (0.0-5.0); EOSINOPHILS # (AUTO) 0.09 K/uL (0.00-0.70); EOSINOPHILS % (AUTO) 0.7 % (0.0-8.0); HEMATOCRIT 36.4 % (42-54); IMMATURE GRANULOCYTE ABSOLUTE 0.05 K/uL (0-1); LYMPHOCYTES % (AUTO) 22.5 % (21.0-51.0); MEAN CORPUSCULAR HEMOGLOBIN 31.4 pg (27.0-33.0); MEAN CORPUSCULAR HGB CONC 34.6 g/dL (32.0-36.0); MEAN CORPUSCULAR VOLUME 90.8 fL (79-99); MONOCYTES # (AUTO) 1.6 K/uL (0.1-1.0); NEUTROPHILS # (AUTO) 8.5 K/uL (1.8-7.7); NEUTROPHILS % (AUTO) 64.1 % (40.0-77.0); PLATELET COUNT (AUTO) 133 K/uL (130-400); RED BLOOD CELL COUNT(AUTO) 4.01 MIL/uL (4.50-6.20); RED CELL DISTRIBUTION WIDTH 12.8 % (11.0-15.5); WHITE BLOOD COUNT (AUTO) 13.3 K/uL (4.8-10.8)
[2024-09-26 23:56] LABS: CREATININE 0.6 mg/dL (0.5-1.3); POTASSIUM 3.8 mmol/L (3.5-5.1)
[2024-09-27] LABS: BILIRUBIN,DIRECT 0.1 mg/dL (0.0-0.3); BILIRUBIN,TOTAL 0.2 mg/dL (0.2-1.0); MAGNESIUM 1.6 mg/dL (1.80-2.40); TOTAL PROTEIN, SERUM 5.8 g/dL (6.0-8.3)
[2024-09-27] MEDS: ondanSETRON 4MG INJ IVP ONE (00:05)
[2024-09-27] MEDS ORDERED: IOHEXOL 350 MG/ML 100ML INFUS..BTL IV ONE (00:38)
--- NOTE | 2024-09-27 02:13 | ERN ---
ED Note History of Present Illness Stated Complaint: HEADACHE Chief Complaint: Headache Time Seen by MD: 23:17 Time Seen by Midlevel: 23:17 Dictation: The patient is a 44-year-old with a history of diabetes, hypertension who presents to the emergency department with complaints of frontal headache, generalized abdominal pain with nausea nonbloody vomiting, nonbloody diarrhea. Patient denies any fevers. Denies any upper respiratory symptoms. Allergies: Coded Allergies: No Known Drug Allergies (Verified Allergy, Unknown, 09/14/15) Home Meds Active Scripts Lactulose (Lactulose) 10 Gram/15 Ml Solution, 30 ML PO BID for constipation, #500 ML 0 Refills Prov:HERMELINDA VILLAFANA MD 08/26/24 Magnesium Citrate (Magnesium Citrate) 296 Ml Solution, 296 ML PO ONCE for 1 Day, #296 ML 0 Refills Prov:HERMELINDA VILLAFANA MD 08/26/24 Loratadine (Loratadine) 10 Mg Tablet, 1 TAB PO DAILY for allergy symptoms for 10 Days, #10 TAB 0 Refills Prov:LAWRENCE VARGAS MD 07/12/24 Reported Medications Pioglitazone HCl (Pioglitazone HCl) 15 Mg Tablet, 1 TAB PO DAILY for 30 Days, #30 TAB 0 Refills 08/24/24 Rosuvastatin Calcium (Rosuvastatin Calcium) 40 Mg Tablet, 1 TAB PO HS for high cholesterol for 30 Days, #30 TAB 0 Refills 08/24/24 Sitagliptin Phosphate (Januvia) 50 Mg Tablet, 1 TAB PO DAILY for 30 Days, #30 TAB 0 Refills 08/24/24 Valbenazine Tosylate (Ingrezza) 80 Mg Capsule, 1 CAP PO HS for 30 Days, #30 CAP 0 Refills 08/24/24 Fluoxetine HCl (Fluoxetine HCl) 40 Mg Capsule, 1 CAP PO DAILY 08/24/24 Metoprolol Tartrate (Metoprolol Tartrate) 25 Mg Tablet, 1 TAB PO BID for 30 Days, #60 TAB 0 Refills 08/24/24 Aspirin (ASPIRIN 81MG CHEW TAB) 81 Mg Tab.chew, 81 MG PO DAILY, TAB.CHEW 06/13/23 Hydroxyzine Pamoate (Hydroxyzine Pamoate) 50 Mg Capsule, 100 MG PO BID PRN for ANXIETY/AGITATION, CAP 06/13/23 Trazodone HCl (Trazodone HCl) 150 Mg Tablet, 150 MG PO HS, TAB 2/20/24 Empagliflozin (Jardiance) 10 Mg Tablet, 25 MG PO DAILY, TAB 06/13/23 Metformin HCl (Metformin HCl) 1,000 Mg Tablet, 1000 MG PO BID, TAB 06/13/23 Lisinopril (Lisinopril) 2.5 Mg Tablet, 5 MG PO DAILY, TAB 06/13/23 Past Medical History Past Medical History: Depression, Diabetes-Type II, High Cholesterol, Hypertension, Other Additional Past Medical Hx: KIDNEY PROBLEMS Surgical History: None Surgical History Other: ABD SX Family History: Negative Social History: Smokers, ETOH, Negative, Lives with family, Other RN Note Reviewed/Agreed w/PFSH: Yes Review of System Dictation Constitutional: Negative for fever,chills, and weight loss Eyes: Negative for injury, pain,redness, and discharge ENT: Negative for injury,pain or swelling Cardiovascular: Negative for chest pain, palpitations, and edema Respiratory: Negative for shortness of breath, cough, and wheezing, Abdomen/GI: Negative for constipation positive for abdominal pain, nausea, vomiting, diarrhea, and Back: Negative for injury and pain : Negative for injury, bleeding and discharge MS/Extremity: Negative for injury and deformity Skin: Negative for rash, and discoloration Neuro: Negative for weakness, numbness, tingling, and seizure positive for headache Psych: Negative for suicide ideation, homicidal ideation, and hallucinations Initial Vital Sign VS Vital Signs Date Time Temp Pulse Resp B/P (MAP) Pulse Ox O2 Delivery O2 Flow Rate FiO2 09/26/24 23:03 98.1 89 18 136/86 97 Room Air 0 09/26/24 23:40 21 Physical Exam Dictation Vital Signs reviewed General Appearance: Alert, oriented x 3, no acute distress, well developed, nourished. Head and Face: non-traumatic. Eyes: PERRL, pink conjunctivas, eyelid no trauma, anterior chamber with arcus s enilis. Ears: Pinnas intact and no signs of trauma or erythema ear canals clear and no discharge TM no erythema Nose: No discharge, no bleeding. Oropharynx: Mouth normal, tongue pink. pharynx clear,no erythema, tonsils no exudates, no abscesses noted, mucous membrane moist Neck: Supple, non-tender, no thyromegaly, no masses, no JVD, no bruits Breast:Deferred Chest:No tenderness, no crepitus, no paradoxical movement, no retractions Lungs:Clear, well-ventilated, symmetric, no rales, no wheezing, no rhonchi, no stridor, good breath sounds bilaterally Heart: Regular rate, regular rhythm, no murmur, no gallops Vascular: no peripheral edema, Abdomen: Soft, positive bowel sounds, nondistended, no guarding, Generalized tenderness, no rebound, no masses no hepatomegaly, no splenomegaly, no Rosario's sign, no hernias. Rectal: Deferred Genital: Deferred Neurological: Normal speech, motor function intact, sensory function intact , upper extremities equal in strength, lower extremities equal in strength Musculoskeletal: Neck nontender, full range of motion, back nontender, full range of motion, Extremities: nontender, full range of motion Skin: Color pink, dry, no turgor, no rash, no lacerations, no abrasions, no contusions. Lymphatic: Deferred Results (Laboratory/Radiology) Laboratory/Radiology Laboratory Tests Test 09/26/24 23:32 09/27/24 03:00 White Blood Count 13.3 K/uL (4.8-10.8) H Red Blood Count 4.01 MIL/uL (4.50-6.20) L Hemoglobin 12.6 g/dL (14.0-18.0) L Hematocrit 36.4 % (42-54) L Mean Corpuscular Volume 90.8 fL (79-99) Mean Corpuscular Hemoglobin 31.4 pg (27.0-33.0) Mean Corpuscular Hemoglobin Concent 34.6 g/dL (32.0-36.0) Red Cell Distribution Width 12.8 % (11.0-15.5) Platelet Count 133 K/uL (130-400) Mean Platelet Volume 11.1 fL (7.5-10.5) H Immature Granulocyte % (Auto) 0.4 % (0-1) Neutrophils (%) (Auto) 64.1 % (40.0-77.0) Lymphocytes (%) (Auto) 22.5 % (21.0-51.0) Monocytes (%) (Auto) 12.0 % (3.0-13.0) Eosinophils (%) (Auto) 0.7 % (0.0-8.0) Basophils (%) (Auto) 0.3 % (0.0-5.0) Neutrophils # (Auto) 8.5 K/uL (1.8-7.7) H Lymphocytes # (Auto) 3.0 K/uL (1.0-4.8) Monocytes # (Auto) 1.6 K/uL (0.1-1.0) H Eosinophils # (Auto) 0.09 K/uL (0.00-0.70) Basophils # (Auto) 0.04 K/uL (0.00-0.20) Absolute Immature Granulocyte (auto 0.05 K/uL (0-1) Nucleated Red Blood Cells 0.0 % (0.0-0.19) Sodium Level 136 mmol/L (136-145) Potassium Level 3.8 mmol/L (3.5-5.1) Chloride Level 103 mmol/L (101-111) Carbon Dioxide Level 30 mmol/L (21-32) Blood Urea Nitrogen 7 mg/dL (7-18) Creatinine 0.6 mg/dL (0.5-1.3) Glomerular Filtration Rate Calc 122 mL/min (>90) Random Glucose 151 mg/dL (70-105) H Total Calcium 8.1 mg/dL (8.5-10.1) L Magnesium Level 1.60 mg/dL (1.80-2.40) L Total Bilirubin 0.2 mg/dL (0.2-1.0) Direct Bilirubin 0.1 mg/dL (0.0-0.3) Aspartate Amino Transf (AST/SGOT) 20 U/L (10-37) Alanine Aminotransferase (ALT/SGPT) 37 U/L (12-78) Alkaline Phosphatase 64 U/L (50-136) Total Creatine Kinase 141 U/L (21-232) # Troponin I High Sensitivity 6 ng/L (4-75) Total Protein 5.8 g/dL (6.0-8.3) L Albumin 3.0 g/dL (3.5-5.0) L Lipase 18 U/L (16-77) Urine Color COLORLESS (YELLOW) Urine Appearance CLEAR (CLEAR) Urine pH 7.5 (5.0-8.0) Urine Specific [place] 1.011 (1.001-1.031) Urine Protein NEGATIVE mg/dL (NEGATIVE) Urine Glucose (UA) 300 mg/dL (NEGATIVE) H Urine Ketones NEGATIVE mg/dL (NEGATIVE) Urine Occult Blood NEGATIVE (NEGATIVE) Urine Nitrate NEGATIVE (NEGATIVE) Urine Bilirubin NEGATIVE mg/dL (NEGATIVE) Urine Urobilinogen 0.2 mg/dL (0.2-1.0) Urine Leukocyte Esterase NEGATIVE Joshua/uL Labs Reviewed?: Yes EKG: (+) rhythm EKG Comment: Date:09/26/2024 Time:2353 Ventricular rate:88 AK interval:211 QRS duration: Sinus rhythm QT/QTc:373 EKG interpretation: Sinus rhythm Reviewed by ED Attending no STEMI ED Course ED Course Orders Procedure Category Date Status Time Cbc With Differential LAB 09/26/24 Complete 23:22 12 Lead Ekg Tracing- EKG 09/26/24 Logged Technical 23:22 0.9%Nacl 1000ml (Ns PHA 09/26/24 Complete 1000ml) 23:30 Ondansetron 4mg Inj PHA 09/26/24 Complete (Zofran 4mg Inj) 23:30 Magnesium LAB 09/26/24 Complete 23:22 Creatine Kinase, Total LAB 09/26/24 Complete 23:22 Troponin I High LAB 09/26/24 Complete Sensitivity 23:22 Urinalysis Profile LAB 09/26/24 Complete 23:22 Basic Metabolic Panel LAB 09/26/24 Complete 23:22 Lipase LAB 09/26/24 Complete 23:22 Hepatic Function Panel LAB 09/26/24 Complete 23:22 Ct Abdomen/Pelvis CT 09/27/24 Taken W/Contrast 00:23 Iohexol (Omnipaque) PHA 09/27/24 Complete 00:38 Magnesium Oxide PHA 09/27/24 Complete (Mag-Ox) 02:30 Pantoprazole 40mg Inj PHA 09/27/24 Complete (Protonix 40mg Inj 02:30 Current Medications Medications (Trade) Dose Ordered Sig/Scooby Route PRN Reason Start Time Stop Time Status Last Admin Dose Admin Iohexol (Omnipaque) 35,000 mg STK-MED ONCE IV 09/27/24 00:38 09/27/24 00:39 DC Magnesium Oxide (Mag-Ox) 400 mg ONCE ONCE PO 09/27/24 02:30 09/27/24 02:31 DC 09/27/24 02:34 Ondansetron HCl (zoFRAN 4MG INJ) 4 mg ONCE ONCE IVP 09/26/24 23:30 09/26/24 23:31 DC 09/27/24 00:05 Pantoprazole Sodium (PROTonix 40MG INJ) 40 mg ONCE ONCE IVP 09/27/24 02:30 09/27/24 02:31 DC 09/27/24 02:34 Sodium Chloride 1,000 ml @ 0 mls/hr ONCE ONCE IV 09/26/24 23:30 09/26/24 23:31 DC 09/26/24 23:36 Vital Signs Date Time Temp Pulse Resp B/P (MAP) Pulse Ox O2 Delivery O2 Flow Rate FiO2 09/26/24 23:40 98.4 88 18 120/65 99 Room Air* 0 21 09/26/24 23:03 98.1 89 18 136/86 97 Room Air 0 Medical Decision Making MDM The patient is a 44-year-old with a history of diabetes, hypertension who presents to the emergency department with complaints of frontal headache, generalized abdominal pain with nausea nonbloody vomiting, nonbloody diarrhea. Patient denies any fevers. Denies any upper respiratory symptoms. CBC showed mild leukocytosis, normocytic anemia, chemistry showed hypomagnesemia, troponin negative, negative lipase, negative liver enzymes Differential diagnosis: Gastroenteritis, dehydration, gastritis, pancreatitis Patient given IV fluids he feels better. Laboratory analysis shows a slight elevation of his white blood cell count. Chemistry panel showed low magnesium it was replaced. CT scan showed possible stercoral ulcer inflammation in the distal rectum. Patient is impacted with stool. And there is bilateral hydronephrosis. Surprisingly the urinalysis is negative. I will discharge the patient home with a bottle of magnesium citrate which he can use to disimpact himself at home. DX & DISP Disposition: Discharge Departure Impression: Primary Impression: Leukocytosis, unspecified Additional Impressions: Stercoral ulcer of anus, Constipation Condition: Stable Referrals: JACKI RAINEY (PCP) OSMIN CROWELL Sep 27, 2024 02:13 HREMELINDA VILLAFANA MD Sep 27, 2024 03:49
[2024-09-27] MEDS: MAGNESIUM OXIDE 400 MG TABLET PO ONE (02:34)
[2024-09-27] MEDS: PANTOPrazole 40 MG/VIAL IVP ONE (02:34)
[2024-09-27 03:11] LABS: ADD UA MICROSCOPIC NO; APPEARANCE,URINE CLEAR (CLEAR); BILIRUBIN,URINE NEGATIVE (NEGATIVE); COLOR,URINE COLORLESS (YELLOW); GLUCOSE, URINE (UA) 300 mg/dL (NEGATIVE); KETONES,URINE NEGATIVE (NEGATIVE); LEUKOCYTE ESTERASE ,URINE NEGATIVE Leu/uL (NEGATIVE); NITRATE,URINE NEGATIVE (NEGATIVE); OCCULT BLOOD,URINE NEGATIVE (NEGATIVE); PH,URINE 7.5 (5.0-8.0); PROTEIN,URINE NEGATIVE (NEGATIVE); UROBILINOGEN,URINE 0.2 mg/dL (0.2-1.0)
[2024-09-27] MEDS: MAGNESIUM CITRATE 296 ML SOLUTION PO ONE (04:06)
[2024-09-27 04:08] VITALS: BP 113/68; PULSE 75; RESP 17; TEMP 98.4; O2SAT 97
--- NOTE | 2024-09-27 04:26 | NUR ---
DISCHARGE PENDING RIDE HOME
--- NOTE | 2024-09-27 06:34 | EKG ---
[facility] Test Date: 2024-09-26 Test Time: 23:53:35 Pat Name: CHARLIE DANIELLE Department: [facility] Room: Gender: M [employer]ning [employer] Patroller: [id number] : 1980 Requested By: OSMIN CROWELL Order Number: [id number] Reading MD: Panda Polo Measurements Intervals [place] Rate: 88 P: 28 WA: 211 QRS: -44 QRSD: 114 T: 50 QT: 373 QTc: 452 Interpretive Statements Sinus rhythm Prolonged WA interval Left anterior fascicular block ST elev, probable normal early repol pattern Compared to ECG 08/22/2024 19:47:53 Left anterior fascicular block now present Sinus tachycardia no longer present Left ventricular hypertrophy no longer present ST (T wave) deviation still present Electronically Signed On 09-28-2024 10:09:20 CDT by Panda Polo Please click the below link to view image of tracing.
--- NOTE | 2024-09-27 08:22 | HMCIMG ---
Exam Type: CT ABDOMEN/PELVIS W/CONTRAST Clinical Information: generalized abd pain, n/v Comparison: None Contrast: 100 cc's Isovue 370 IV, no complications or adverse reactions CT Dose Index (CTDI): 31.60 mGy Dose Length Product (DLP): 1740.80 total mGy-cm Findings: No evidence of nephro or ureterolithiasis is found. No hydronephrosis or ureteral dilatation is seen. The lung bases are clear. The stomach is unremarkable. It shows no wall thickening. No gross ulceration is seen. It is not overly distended. There are no surrounding inflammatory changes. No wall lesions are identified to suggest cancer. The spleen is unremarkable. It is not enlarged. The pancreas shows normal anatomy. It is not fatty replaced. It shows no lesions. The pancreatic duct is not dilated. The gallbladder is surgically absent. The adrenal glands are unremarkable. There is no enlargement. No lesions are noted. The liver is unremarkable. It shows no focal masses. The appendix is unremarkable. It shows no evidence of inflammation. No appendicolith is seen. The small bowel is unremarkable. There is no evidence of dilatation to suggest obstruction. No evidence of adynamic ileus is seen. There is no small bowel wall thickening to suggest enteritis. Abundant fecal matter is noted throughout the colon consistent with constipation. The urinary bladder is unremarkable. There is no wall thickening to suggest tumor or inflammation. There are no intraluminal calculi. There are no diverticula. There is no evidence of chronic bladder outlet obstruction. There is no evidence of urinary bladder distention to suggest urinary retention. The other pelvic structures are unremarkable. The bony and vascular structures are unremarkable for the patient's age. IMPRESSION: Constipation. This study was performed using dose reduction techniques to include automated exposure control and/or adjustment of the mA and/or kV according to patient size.
== END 2024-09-27 04:51 | disposition home or self-care (01) ==
LOC: EDH 23:01
DX: D72.829 Elevated white blood cell count, unspecified (principal); K62.6 Ulcer of anus and rectum; K59.00 Constipation, unspecified; E11.9 Type 2 diabetes mellitus without complications; E78.00 Pure hypercholesterolemia, unspecified; I10 Essential (primary) hypertension; F17.200 Nicotine dependence, unspecified, uncomplicated; F32.A Depression, unspecified; Z79.82 Long term (current) use of aspirin; Z79.84 Long term (current) use of oral hypoglycemic drugs; Z79.899 Other long term (current) drug therapy
CPT/HCPCS: 99285; 96374; 96375; 82550; 80076; 83735; 84484; 80048; 83690; 85025; 81003; 36415; 93005; 74177; J2405; J2470; Q9967

== ENCOUNTER 2024-10-03 20:48 | Emergency (ER) | payer MEDICAID ==
[~2024-10-03] VITALS: Ht 180.3 cm; Wt 99.8 kg
[2024-10-03 21:29] LABS: AMPHET/METH SCREEN,URINE NEGATIVE (NEGATIVE); BARBITURATE SCREEN, URINE NEGATIVE (NEGATIVE); BENZODIAZEPINES SCREEN,URINE NEGATIVE (NEGATIVE); CANNABINOID SCREEN,URINE NEGATIVE (NEGATIVE); COCAINE SCREEN,URINE POSITIVE (NEGATIVE); OPIATE SCREEN,URINE NEGATIVE (NEGATIVE); PHENCYCLIDINE SCREEN,URINE NEGATIVE (NEGATIVE)
[2024-10-03 21:31] LABS: BASOPHILS # (AUTO) 0.04 K/uL (0.00-0.20); BASOPHILS % (AUTO) 0.5 % (0.0-5.0); EOSINOPHILS # (AUTO) 0.04 K/uL (0.00-0.70); EOSINOPHILS % (AUTO) 0.5 % (0.0-8.0); HEMATOCRIT 41.3 % (42-54); IMMATURE GRANULOCYTE ABSOLUTE 0.04 K/uL (0-1); LYMPHOCYTES # (AUTO) 2.4 K/uL (1.0-4.8); LYMPHOCYTES % (AUTO) 28.8 % (21.0-51.0); MEAN CORPUSCULAR HGB CONC 35.4 g/dL (32.0-36.0); MEAN CORPUSCULAR VOLUME 87.7 fL (79-99); MONOCYTES # (AUTO) 0.9 K/uL (0.1-1.0); MONOCYTES % (AUTO) 10.5 % (3.0-13.0); NEUTROPHILS % (AUTO) 59.2 % (40.0-77.0); PLATELET COUNT (AUTO) 195 K/uL (130-400); RED BLOOD CELL COUNT(AUTO) 4.71 MIL/uL (4.50-6.20); RED CELL DISTRIBUTION WIDTH 13.2 % (11.0-15.5); WHITE BLOOD COUNT (AUTO) 8.4 K/uL (4.8-10.8)
[2024-10-03 21:41] LABS: CARBON DIOXIDE 24 mmol/L (21-32); CHLORIDE 100 mmol/L (101-111); CREATININE 0.8 mg/dL (0.5-1.3); GLOMERULAR FILTR. RATE CALC 112 mL/min (>90); GLUCOSE,RANDOM 164 mg/dL (70-105); POTASSIUM 3.8 mmol/L (3.5-5.1); SODIUM SERUM 137 mmol/L (136-145); UREA NITROGEN, BLOOD 10 mg/dL (7-18)
[2024-10-03 21:45] LABS: ALCOHOL, BLOOD 17 mg/dL (0-10); SALICYLATE 3.6 mg/dL (2.8-20.0)
[2024-10-03] MEDS: ALPRAZolam 0.5 MG TABLET PO ONE (21:46)
[2024-10-03 21:50] LABS: APPEARANCE,URINE CLEAR (CLEAR); BILIRUBIN,URINE NEGATIVE (NEGATIVE); COLOR,URINE COLORLESS (YELLOW); GLUCOSE, URINE (UA) >=1000 mg/dL (NEGATIVE); KETONES,URINE NEGATIVE (NEGATIVE); LEUKOCYTE ESTERASE ,URINE NEGATIVE Leu/uL (NEGATIVE); NITRATE,URINE NEGATIVE (NEGATIVE); OCCULT BLOOD,URINE NEGATIVE (NEGATIVE); PH,URINE 6.5 (5.0-8.0); PROTEIN,URINE NEGATIVE (NEGATIVE); UROBILINOGEN,URINE 0.2 mg/dL (0.2-1.0)
[2024-10-03 21:52] LABS: ADD UA MICROSCOPIC YES
[2024-10-03 21:53] LABS: RBC,URINE 0-1 /HPF (0-1); SQUAMOUS EPITHELIAL CELL,UR RARE /HPF (0-2); WBC,URINE 0-1 /HPF (0-1)
[2024-10-03 21:56] LABS: ACETAMINOPHEN < 1 mcg/mL (10-29)
[2024-10-03 21:59] LABS: ALANINE AMINOTRANSFERASE 35 U/L (12-78); ALBUMIN 3.6 g/dL (3.5-5.0); ASPARTATE AMINOTRANSFERASE 13 U/L (10-37); BILIRUBIN,DIRECT 0.1 mg/dL (0.0-0.3); BILIRUBIN,TOTAL 0.2 mg/dL (0.2-1.0); TOTAL PROTEIN, SERUM 7.1 g/dL (6.0-8.3)
--- NOTE | 2024-10-03 22:10 | NUR ---
VARINDER RUIZ CONTACTED TO INITIATE SCREENING
--- NOTE | 2024-10-03 22:45 | NUR ---
SPOKE WITH GHADA SPENCER WITH [facility], ASSESSMENT WILL BE DELAYED DUE TO WEATHER
--- NOTE | 2024-10-04 01:32 | ERN ---
ED Note History of Present Illness Stated Complaint: SUICIDAL IDEATION Chief Complaint: Suicidal Ideation Time Seen by MD: 20:53 Time Seen by Midlevel: 20:54 Dictation: 44-year-old male who presents to the emergency department due to reported having suicide ideations. Patient states that he was in an argument with his mother at that point he states that he opted to have 1 beer after having had 2 and his mother resents it so which he says that he was going to [place]. Upon initial evaluation, the patient presents very calm and collective. On initial evaluation, the patient presents in no acute distress. Allergies: Coded Allergies: No Known Drug Allergies (Verified Allergy, Unknown, 09/14/15) Emergency Care CATHODE BUILDER: None Home Meds Active Scripts Lactulose (Lactulose) 10 Gram/15 Ml Solution, 30 ML PO BID for constipation, #500 ML 0 Refills Prov:HERMELINDA VILLAFANA MD 08/26/24 Magnesium Citrate (Magnesium Citrate) 296 Ml Solution, 296 ML PO ONCE for 1 Day, #296 ML 0 Refills Prov:HERMELINDA VILLAFANA MD 08/26/24 Loratadine (Loratadine) 10 Mg Tablet, 1 TAB PO DAILY for allergy symptoms for 10 Days, #10 TAB 0 Refills Prov:LAWRENCE VARGAS MD 07/12/24 Reported Medications Pioglitazone HCl (Pioglitazone HCl) 15 Mg Tablet, 1 TAB PO DAILY for 30 Days, #30 TAB 0 Refills 08/24/24 Rosuvastatin Calcium (Rosuvastatin Calcium) 40 Mg Tablet, 1 TAB PO HS for high cholesterol for 30 Days, #30 TAB 0 Refills 08/24/24 Sitagliptin Phosphate (Januvia) 50 Mg Tablet, 1 TAB PO DAILY for 30 Days, #30 TAB 0 Refills 08/24/24 Valbenazine Tosylate (Ingrezza) 80 Mg Capsule, 1 CAP PO HS for 30 Days, #30 CAP 0 Refills 08/24/24 Fluoxetine HCl (Fluoxetine HCl) 40 Mg Capsule, 1 CAP PO DAILY 08/24/24 Metoprolol Tartrate (Metoprolol Tartrate) 25 Mg Tablet, 1 TAB PO BID for 30 Days, #60 TAB 0 Refills 08/24/24 Aspirin (ASPIRIN 81MG CHEW TAB) 81 Mg Tab.chew, 81 MG PO DAILY, TAB.CHEW 06/13/23 Hydroxyzine Pamoate (Hydroxyzine Pamoate) 50 Mg Capsule, 100 MG PO BID PRN for ANXIETY/AGITATION, CAP 06/13/23 Trazodone HCl (Trazodone HCl) 150 Mg Tablet, 150 MG PO HS, TAB 06/13/23 Empagliflozin (Jardiance) 10 Mg Tablet, 25 MG PO DAILY, TAB 06/13/23 Metformin HCl (Metformin HCl) 1,000 Mg Tablet, 1000 MG PO BID, TAB 06/13/23 Lisinopril (Lisinopril) 2.5 Mg Tablet, 5 MG PO DAILY, TAB 06/13/23 Past Medical History Past Medical History: Anxiety, Depression, Diabetes-Type II, High Cholesterol, Hypertension, Other Additional Past Medical Hx: KIDNEY PROBLEMS Surgical History: None Surgical History Other: ABD SX Family History: Negative Social History: Smokers, ETOH, Negative, Lives with family, Other Review of System Dictation Psych: Suicidal. Initial Vital Sign VS Vital Signs Date Time Temp Pulse Resp B/P (MAP) Pulse Ox O2 Delivery O2 Flow Rate FiO2 10/03/24 20:50 99.1 110 16 150/82 95 Room Air 0 10/03/24 22:07 21 Physical Exam Dictation General: awake, alert, NAD Head/Face: Normocephalic, atraumatic Eyes: PERRL, EOMI ENT: Oral mucosa moist Neck: Trachea midline, supple Cardiovascular: RRR, no edema Respiratory: Symmetrical, non-labored Abdomen: Soft, non-tender, non-distended, no guarding. Skin: Warm, dry, good turgor, no rash MS/Extremity: Pulses equal, no cyanosis, neurovascular intact, FROM Neuro: COAx4, GCS 15, steady gait, Psych: Suicidal. Results (Laboratory/Radiology) Laboratory/Radiology Laboratory Tests Test 10/03/24 21:10 10/03/24 21:24 Urine Color COLORLESS (YELLOW) Urine Appearance CLEAR (CLEAR) Urine pH 6.5 (5.0-8.0) Urine Specific [place] 1.016 (1.001-1.031) Urine Protein NEGATIVE mg/dL (NEGATIVE) Urine Glucose (UA) >=1000 mg/dL (NEGATIVE) H Urine Ketones NEGATIVE mg/dL (NEGATIVE) Urine Occult Blood NEGATIVE (NEGATIVE) Urine Nitrate NEGATIVE (NEGATIVE) Urine Bilirubin NEGATIVE mg/dL (NEGATIVE) Urine Urobilinogen 0.2 mg/dL (0.2-1.0) Urine Leukocyte Esterase NEGATIVE [place]/uL Urine RBC 0-1 /HPF (0-1) Urine WBC 0-1 /HPF (0-1) Urine Squamous Epithelial Cells RARE /HPF (0-2) Urine Bacteria None /HPF (None Seen) Urine Opiates Screen NEGATIVE (NEGATIVE) Urine Barbiturates Screen NEGATIVE (NEGATIVE) Urine Phencyclidine Screen NEGATIVE (NEGATIVE) Urine Amphetamines Screen NEGATIVE (NEGATIVE) Urine Benzodiazepines Screen NEGATIVE (NEGATIVE) Urine Cocaine Screen POSITIVE (NEGATIVE) H Urine Marijuana (THC) Screen NEGATIVE (NEGATIVE) White Blood Count 8.4 K/uL (4.8-10.8) Red Blood Count 4.71 MIL/uL (4.50-6.20) Hemoglobin 14.6 g/dL (14.0-18.0) Hematocrit 41.3 % (42-54) L Mean Corpuscular Volume 87.7 fL (79-99) Mean Corpuscular Hemoglobin 31.0 pg (27.0-33.0) Mean Corpuscular Hemoglobin Concent 35.4 g/dL (32.0-36.0) Red Cell Distribution Width 13.2 % (11.0-15.5) Platelet Count 195 K/uL (130-400) Mean Platelet Volume 11.2 fL (7.5-10.5) H Immature Granulocyte % (Auto) 0.5 % (0-1) Neutrophils (%) (Auto) 59.2 % (40.0-77.0) Lymphocytes (%) (Auto) 28.8 % (21.0-51.0) Monocytes (%) (Auto) 10.5 % (3.0-13.0) Eosinophils (%) (Auto) 0.5 % (0.0-8.0) Basophils (%) (Auto) 0.5 % (0.0-5.0) Neutrophils # (Auto) 5.0 K/uL (1.8-7.7) Lymphocytes # (Auto) 2.4 K/uL (1.0-4.8) Monocytes # (Auto) 0.9 K/uL (0.1-1.0) Eosinophils # (Auto) 0.04 K/uL (0.00-0.70) Basophils # (Auto) 0.04 K/uL (0.00-0.20) Absolute Immature Granulocyte (auto 0.04 K/uL (0-1) Nucleated Red Blood Cells 0.0 % (0.0-0.19) Sodium Level 137 mmol/L (136-145) Potassium Level 3.8 mmol/L (3.5-5.1) Chloride Level 100 mmol/L (101-111) L Carbon Dioxide Level 24 mmol/L (21-32) Blood Urea Nitrogen 10 mg/dL (7-18) Creatinine 0.8 mg/dL (0.5-1.3) Glomerular Filtration Rate Calc 112 mL/min (>90) Random Glucose 164 mg/dL (70-105) H Total Calcium 8.7 mg/dL (8.5-10.1) Total Bilirubin 0.2 mg/dL (0.2-1.0) Direct Bilirubin 0.1 mg/dL (0.0-0.3) Aspartate Amino Transf (AST/SGOT) 13 U/L (10-37) Alanine Aminotransferase (ALT/SGPT) 35 U/L (12-78) Alkaline Phosphatase 71 U/L (50-136) Total Protein 7.1 g/dL (6.0-8.3) Albumin 3.6 g/dL (3.5-5.0) Salicylates Level 3.6 mg/dL (2.8-20.0) # Acetaminophen Level < 1 mcg/mL (10-29) L Serum Alcohol 17 mg/dL (0-10) H Labs Reviewed?: Yes ED Course ED Course Orders Procedure Category Date Status Time Cbc With Differential LAB 10/03/24 Complete 20:58 Basic Metabolic Panel LAB 10/03/24 Complete 20:58 Alcohol, Blood LAB 10/03/24 Complete 20:58 Acetaminophen LAB 10/03/24 Complete 20:58 Salicylate LAB 10/03/24 Complete 20:58 Drug Screen Urine LAB 10/03/24 Complete 20:58 Alprazolam 0.5mg PHA 10/03/24 Complete (Xanax 0.5mg) 21:30 Urinalysis Profile LAB 10/03/24 Complete 21:33 Hepatic Function Panel LAB 10/03/24 Complete 21:24 Current Medications Medications (Trade) Dose Ordered Sig/Scooby Route PRN Reason Start Time Stop Time Status Last Admin Dose Admin Alprazolam (XANax 0.5MG) 0.5 mg ONCE ONCE PO 10/03/24 21:30 10/03/24 21:41 DC 10/03/24 21:46 Vital Signs Date Time Temp Pulse Resp B/P (MAP) Pulse Ox O2 Delivery O2 Flow Rate FiO2 10/04/24 04:13 98.6 90 15 146/68 96 Room Air* 0 21 10/03/24 22:07 99.0 96 15 155/62 97 Room Air* 0 21 10/03/24 20:50 99.1 110 16 150/82 95 Room Air 0 1:30 a.m. okay patient is signed out to me Reviewed chart labs in the notes. Patient awaiting behavioral health evaluation which is delayed due to bad weather 3:36 a.m. discussed with behavioral health professional. She spent extensive time with the patient and felt that the patient already received services from the Behavioral Health unit and he does not meet the criteria for inpatient treatment she called the patient's mother who is unable to come to pick him up right now but in a few hours she will be able to drive. We will discharge the patient to home for outpatient ongoing management. Counseling on recreational drugs cessation and abstinence lifestyle modifications. Medical Decision Making MDM MDM: Differential diagnosis: Suicidal ideations-depression, poor coping skills, manipulative behavior, substance abuse related Rationale: Tests considered and ordered secondary to shared decision making include: Previous outside records reviewed: Old ER visits. Risk of complication and/or morbidity or mortality of patient management: None Medications-Per medication reconciliation Need for hospitalization: Patient does not meet criteria for hospitalization. Need for emergency major/minor surgery: No There are no social concerns with this patient. Prescription drug management Prescriptions will include symptomatic care Patient's prior external medical records from other ER visits were reviewed by me as indicated. Prior testing and results from previous visits were reviewed. Prior tests were taken into account with medical decision making and resource utilization, independent historian/historians were used to obtain complete medical history. I independently interpreted the test that were performed, results were reviewed by me and considered findings on radiology if ordered. Medical management and examination interpretation discussions were had by me with other qualified healthcare professionals as indicated for the patient's care. Problem List Problem List: (1) Alcohol abuse (2) Suicidal ideations (3) Depression (4) Behavioral disorder DX & DISP Disposition: Discharge Departure Impression: Primary Impression: Alcohol abuse Additional Impressions: Suicidal ideations, Depression, Behavioral disorder Condition: Stable Additional Instructions: Patient and the caregiver have been informed of all the diagnostic tests and the imaging conducted during the today's visit to the emergency room and has verbalized understanding of the results I have personally reviewed and interpreted all diagnostic exams performed here in the ER today as well as the v ital signs documented by the nursing staff. The patient is now being discharged to home and should follow up with the primary care physician or the specialist as directed by the ER staff. Follow-up with primary care provider in 1 to 2 days. Take medications as directed here in the emergency room. Okay to continue home medications unless otherwise discussed during your visit in the emergency room today. Return to your nearest emergency room if symptoms worsen or if there is no improvement. Call 911 if you need immediate assistance. Take Tylenol or Motrin [id number] as needed and if no contraindications are present. Increase oral hydration. A wound culture or urine culture was ordered here in the emergency room department please follow-up with primary care provider and advise them to get repeat ports from our facility. If you had any [place] wrap/splints that were applied here, please do not remove them until you see your primary care or specialty. Referrals: JACKI RAINEY (PCP) ALEYDA MURRAY Oct 04, 2024 01:32 ÁNGEL LOPEZ MD Oct 04, 2024 02:30
--- NOTE | 2024-10-04 01:55 | NUR ---
[facility] CONTACTED TO FOLLOW UP ON PENDING SCREENING. NO INCLEMENT WEATHER HAS OCCURRED SINCE CONTACT FROM GHADA SPENCER AT [id number].
--- NOTE | 2024-10-04 02:25 | NUR ---
GHADA WITH [facility] [place] IN ER
--- NOTE | 2024-10-04 03:34 | NUR ---
PER SCREENER, PATIENT DOES NOT MEET CRITERIA FOR INPATIENT SERVICES, WILL BE FOLLOWED OUTPATIENT. SCREENER SPOKE WITH MOTHER, MOTHER CANNOT BRAZER PRODUCTION LINE PATIENT UNTIL LATER TODAY.
[2024-10-04 04:13] VITALS: BP 146/68; PULSE 90; RESP 15; TEMP 98.6; O2SAT 96
== END 2024-10-04 04:16 | disposition home or self-care (01) ==
LOC: EDH 20:48
DX: F10.10 Alcohol abuse, uncomplicated (principal); R45.851 Suicidal ideations; F32.A Depression, unspecified; F91.9 Conduct disorder, unspecified; E11.9 Type 2 diabetes mellitus without complications; E78.00 Pure hypercholesterolemia, unspecified; F17.200 Nicotine dependence, unspecified, uncomplicated; F41.9 Anxiety disorder, unspecified; I10 Essential (primary) hypertension; Z79.82 Long term (current) use of aspirin; Z79.84 Long term (current) use of oral hypoglycemic drugs; Z79.899 Other long term (current) drug therapy
CPT/HCPCS: 99283; 80076; 80048; 80305; 85025; 36415; 81001; G0481

== ENCOUNTER 2024-10-21 15:54 | Emergency (ER) | payer MEDICAID ==
[~2024-10-21] VITALS: Ht 180.3 cm; Wt 90.7 kg
[2024-10-21 16:42] LABS: BASOPHILS # (AUTO) 0.05 K/uL (0.00-0.20); BASOPHILS % (AUTO) 0.6 % (0.0-5.0); EOSINOPHILS # (AUTO) 0.05 K/uL (0.00-0.70); EOSINOPHILS % (AUTO) 0.6 % (0.0-8.0); HEMATOCRIT 43.3 % (42-54); IMMATURE GRANULOCYTE ABSOLUTE 0.03 K/uL (0-1); LYMPHOCYTES # (AUTO) 2.9 K/uL (1.0-4.8); LYMPHOCYTES % (AUTO) 32.4 % (21.0-51.0); MEAN CORPUSCULAR HEMOGLOBIN 30.6 pg (27.0-33.0); MEAN CORPUSCULAR HGB CONC 33.9 g/dL (32.0-36.0); MEAN CORPUSCULAR VOLUME 90.2 fL (79-99); MONOCYTES % (AUTO) 11.4 % (3.0-13.0); NEUTROPHILS # (AUTO) 4.9 K/uL (1.8-7.7); NEUTROPHILS % (AUTO) 54.7 % (40.0-77.0); PLATELET COUNT (AUTO) 168 K/uL (130-400); RED CELL DISTRIBUTION WIDTH 13.5 % (11.0-15.5); WHITE BLOOD COUNT (AUTO) 8.9 K/uL (4.8-10.8)
--- NOTE | 2024-10-21 16:43 | EKG ---
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
[2024-10-21 16:48] LABS: APPEARANCE,URINE CLEAR (CLEAR); BILIRUBIN,URINE NEGATIVE (NEGATIVE); COLOR,URINE COLORLESS (YELLOW); GLUCOSE, URINE (UA) >=1000 mg/dL (NEGATIVE); KETONES,URINE NEGATIVE (NEGATIVE); LEUKOCYTE ESTERASE ,URINE NEGATIVE Leu/uL (NEGATIVE); NITRATE,URINE NEGATIVE (NEGATIVE); OCCULT BLOOD,URINE NEGATIVE (NEGATIVE); PH,URINE 6.5 (5.0-8.0); PROTEIN,URINE NEGATIVE (NEGATIVE); UROBILINOGEN,URINE 0.2 mg/dL (0.2-1.0)
[2024-10-21 16:50] LABS: ADD UA MICROSCOPIC YES
[2024-10-21 16:51] LABS: BACTERIA,URINE RARE /HPF (None Seen); SQUAMOUS EPITHELIAL CELL,UR RARE /HPF (0-2); WBC,URINE 0-1 /HPF (0-1)
[2024-10-21 16:52] LABS: CREATININE 0.8 mg/dL (0.5-1.3); POTASSIUM 4.2 mmol/L (3.5-5.1)
[2024-10-21 16:55] LABS: AMPHET/METH SCREEN,URINE NEGATIVE (NEGATIVE); BARBITURATE SCREEN, URINE NEGATIVE (NEGATIVE); BENZODIAZEPINES SCREEN,URINE NEGATIVE (NEGATIVE); CANNABINOID SCREEN,URINE NEGATIVE (NEGATIVE); COCAINE SCREEN,URINE NEGATIVE (NEGATIVE); OPIATE SCREEN,URINE NEGATIVE (NEGATIVE); PHENCYCLIDINE SCREEN,URINE NEGATIVE (NEGATIVE)
[2024-10-21 17:02] VITALS: BP 132/55; PULSE 82; RESP 20; TEMP 98.6; O2SAT 98
--- NOTE | 2024-10-21 17:28 | HMCIMG ---
EXAM: CR Chest, 1 View. CLINICAL HISTORY: CHEST PAIN COMPARISON: None provided. FINDINGS: LUNGS: There is no mass, infiltrate, or acute pulmonary abnormality. PLEURAL SPACES: No evidence of pleural effusion or pneumothorax. MEDIASTINUM: Cardiac size and mediastinal contours within normal limits. BONES: No aggressive appearing osseous lesion seen. IMPRESSION: No acute cardiopulmonary pathology is evident. /[place]
== END 2024-10-21 17:03 | disposition left against medical advice (07) ==
LOC: EDH 15:54
DX: R07.89 Other chest pain (principal); F41.9 Anxiety disorder, unspecified; F32.A Depression, unspecified; E11.9 Type 2 diabetes mellitus without complications; E78.00 Pure hypercholesterolemia, unspecified; I10 Essential (primary) hypertension; Z79.899 Other long term (current) drug therapy
CPT/HCPCS: 36415; 71045; 80048; 80305; 81001; 84484; 85025; 93005; 99285

== ENCOUNTER 2024-11-05 15:35 | Emergency (ER) | payer MEDICAID ==
[~2024-11-05] VITALS: Ht 177.8 cm; Wt 108.9 kg
[2024-11-05] MEDS ORDERED: NITROGLYCERIN 0.4 MG SL TAB SL PRN (16:00)
[2024-11-05] MEDS: ASPIRIN 81MG CHEW TAB PO ONE (16:08)
[2024-11-05 16:22] LABS: IMMATURE GRANULOCYTE ABSOLUTE 0.02 K/uL (0-1); NUCLEATED RED BLOOD CELLS 0.0 % (0.0-0.19); PLATELET COUNT (AUTO) 160 K/uL (130-400); RED BLOOD CELL COUNT(AUTO) 4.60 MIL/uL (4.50-6.20); RED CELL DISTRIBUTION WIDTH 13.0 % (11.0-15.5); WHITE BLOOD COUNT (AUTO) 8.1 K/uL (4.8-10.8)
[2024-11-05 16:28] LABS: CREATININE 0.6 mg/dL (0.5-1.3); GLOMERULAR FILTR. RATE CALC 122.0 mL/min (>90); GLUCOSE,RANDOM 175.0 mg/dL (70-105); SODIUM SERUM 135.0 mmol/L (136-145); UREA NITROGEN, BLOOD 9.0 mg/dL (7-18)
--- NOTE | 2024-11-05 16:52 | HMCIMG ---
EXAM: CR Chest, 1 View. CLINICAL HISTORY: cp COMPARISON: None provided. FINDINGS: LUNGS: The lungs show no infiltrate or other acute finding. PLEURAL SPACES: No pleural effusion or pneumothorax. MEDIASTINUM: The cardiomediastinal silhouette is within normal limits. BONES: No aggressive appearing osseous lesion seen. IMPRESSION: No acute cardiopulmonary pathology is evident. /[place]
[2024-11-05 17:25] VITALS: BP 114/69; PULSE 83; RESP 17; TEMP 98.6; O2SAT 99
--- NOTE | 2024-11-05 17:37 | ERN ---
ED Note History of Present Illness Stated Complaint: CHEST PAIN Chief Complaint: Chest Pain Time Seen by MD: 15:43 Time Seen by Midlevel: 15:45 Dictation: 44-year-old female brought in for epigastric pain/chest pain onset in the morning. Patient states he was not daycare when he began with the pain. Denies having any shortness a breath, cough, congestion, headaches, fever nausea or vomiting. Allergies: Coded Allergies: No Known Drug Allergies (Verified Allergy, Unknown, 09/14/15) Home Meds Active Scripts Lactulose (Lactulose) 10 Gram/15 Ml Solution, 30 ML PO BID for constipation, #500 ML 0 Refills Prov:HERMELINDA VILLAFANA MD 08/26/24 Magnesium Citrate (Magnesium Citrate) 296 Ml Solution, 296 ML PO ONCE for 1 Day, #296 ML 0 Refills Prov:HERMELINDA VILLAFANA MD 08/26/24 Loratadine (Loratadine) 10 Mg Tablet, 1 TAB PO DAILY for allergy symptoms for 10 Days, #10 TAB 0 Refills Prov:LAWRENCE VARGAS MD 07/12/24 Reported Medications Pioglitazone HCl (Pioglitazone HCl) 15 Mg Tablet, 1 TAB PO DAILY for 30 Days, #30 TAB 0 Refills 08/24/24 Rosuvastatin Calcium (Rosuvastatin Calcium) 40 Mg Tablet, 1 TAB PO HS for high cholesterol for 30 Days, #30 TAB 0 Refills 08/24/24 Sitagliptin Phosphate (Januvia) 50 Mg Tablet, 1 TAB PO DAILY for 30 Days, #30 TAB 0 Refills 08/24/24 Valbenazine Tosylate (Ingrezza) 80 Mg Capsule, 1 CAP PO HS for 30 Days, #30 CAP 0 Refills 08/24/24 Fluoxetine HCl (Fluoxetine HCl) 40 Mg Capsule, 1 CAP PO DAILY 08/24/24 Metoprolol Tartrate (Metoprolol Tartrate) 25 Mg Tablet, 1 TAB PO BID for 30 Days, #60 TAB 0 Refills 08/24/24 Aspirin (ASPIRIN 81MG CHEW TAB) 81 Mg Tab.chew, 81 MG PO DAILY, TAB.CHEW 06/13/23 Hydroxyzine Pamoate (Hydroxyzine Pamoate) 50 Mg Capsule, 100 MG PO BID PRN for ANXIETY/AGITATION, CAP 06/13/23 Trazodone HCl (Trazodone HCl) 150 Mg Tablet, 150 MG PO HS, TAB 06/13/23 Empagliflozin (Jardiance) 10 Mg Tablet, 25 MG PO DAILY, TAB 06/13/23 Metformin HCl (Metformin HCl) 1,000 Mg Tablet, 1000 MG PO BID, TAB 06/13/23 Lisinopril (Lisinopril) 2.5 Mg Tablet, 5 MG PO DAILY, TAB 06/13/23 Past Medical History Past Medical History: Anxiety, Asthma, CAD, Depression, Diabetes-Type II, High Cholesterol, Hypertension Additional Past Medical Hx: KIDNEY PROBLEMS Surgical History: Other Surgical History Other: abd sx Family History: Negative Social History: Smokers, ETOH, Negative, Lives with family, Other Review of System Dictation Constitutional: Negative for fever,chills, and weight loss Eyes: Negative for injury, pain,redness, and discharge ENT: Negative for injury,pain or swelling Cardiovascular: Complaining of chest pain Respiratory: Negative for shortness of breath, cough, and wheezing, Abdomen/GI: Complaining of epigastric pain Back: Negative for injury and pain : Negative for injury, bleeding and discharge MS/Extremity: Negative for injury and deformity Skin: Negative for rash, and discoloration Neuro: Negative for headache, weakness, numbness, tingling, and seizure Psych: Negative for suicide ideation, homicidal ideation, and hallucinations Review of Systems: was completed Initial Vital Sign VS Vital Signs Date Time Temp Pulse Resp B/P (MAP) Pulse Ox O2 Delivery O2 Flow Rate FiO2 11/05/24 15:37 98.2 79 20 109/75 96 Room Air 0 11/05/24 15:55 21 Physical Exam Dictation General: awake, alert, NAD Head/Face: Normocephalic, atraumatic Eyes: PERRL, EOMI, vision at baseline ENT: oral cavity clear, TMs clear, no signs of infection Neck: Trachea midline, supple, no nuchal rigidity Cardiovascular: RRR, normal S1/S2, No MRGs, no JVD, reproducible chest pain on palpation to the chest, center Respiratory: CTAB, no respiratory distress, No rales or wheezes Abdomen: Soft, non-tender, non-distended, normal bowel sounds, no guarding or rebound. Skin: Warm, dry, normal turgor, no rash MS/Extremity: Pulses equal, no cyanosis, neurovascular intact, FROM Neuro: COAx4, GCS 15, strength 5/5, CN 2-12 intact, normal cerebellar exam, normal gait, Psych: Normal behavior, mood, and affect normal Results (Laboratory/Radiology) Laboratory/Radiology Laboratory Tests Test 11/05/24 16:15 White Blood Count 8.1 K/uL (4.8-10.8) Red Blood Count 4.60 MIL/uL (4.50-6.20) Hemoglobin 14.3 g/dL (14.0-18.0) Hematocrit 40.7 % (42-54) L Mean Corpuscular Volume 88.5 fL (79-99) Mean Corpuscular Hemoglobin 31.1 pg (27.0-33.0) Mean Corpuscular Hemoglobin Concent 35.1 g/dL (32.0-36.0) Red Cell Distribution Width 13.0 % (11.0-15.5) Platelet Count 160 K/uL (130-400) Mean Platelet Volume 11.1 fL (7.5-10.5) H Immature Granulocyte % (Auto) 0.2 % (0-1) Neutrophils (%) (Auto) 58.8 % (40.0-77.0) Lymphocytes (%) (Auto) 28.8 % (21.0-51.0) Monocytes (%) (Auto) 11.1 % (3.0-13.0) Eosinophils (%) (Auto) 0.5 % (0.0-8.0) Basophils (%) (Auto) 0.6 % (0.0-5.0) Neutrophils # (Auto) 4.8 K/uL (1.8-7.7) Lymphocytes # (Auto) 2.3 K/uL (1.0-4.8) Monocytes # (Auto) 0.9 K/uL (0.1-1.0) Eosinophils # (Auto) 0.04 K/uL (0.00-0.70) Basophils # (Auto) 0.05 K/uL (0.00-0.20) Absolute Immature Granulocyte (auto 0.02 K/uL (0-1) Nucleated Red Blood Cells 0.0 % (0.0-0.19) Sodium Level 135 mmol/L (136-145) L Potassium Level 3.9 mmol/L (3.5-5.1) Chloride Level 99 mmol/L (101-111) L Carbon Dioxide Level 29 mmol/L (21-32) Blood Urea Nitrogen 9 mg/dL (7-18) Creatinine 0.6 mg/dL (0.5-1.3) Glomerular Filtration Rate Calc 122 mL/min (>90) Random Glucose 175 mg/dL (70-105) H Total Calcium 8.6 mg/dL (8.5-10.1) Troponin I High Sensitivity 5 ng/L (4-75) Labs Reviewed?: Yes EKG Comment: EKGs done at 3:38 p.m.. Sinus rhythm, 81 beats per minute. Borderline prolonged [place] interval. Nonspecific IVCD with LAD. ED Course ED Course Orders Procedure Category Date Status Time Cbc With Differential LAB 11/05/24 Complete 15:54 Chest 1vw RAD 11/05/24 Resulted 15:54 12 Lead Ekg Tracing- EKG 11/05/24 Logged Technical 15:54 Aspirin 81mg Chew Tab PHA 11/05/24 Complete (Aspirin 81mg Chew 16:00 Nitroglycerin 0.4mg PHA 11/05/24 In Process Sl Tab (Nitrostat) 16:00 Troponin I High LAB 11/05/24 Complete Sensitivity 15:54 Basic Metabolic Panel LAB 11/05/24 Complete 15:54 Current Medications Medications (Trade) Dose Ordered Sig/Scooby Route PRN Reason Start Time Stop Time Status Last Admin Dose Admin Aspirin (Aspirin 81mg Chew Tab) 324 mg ONCE ONCE PO 11/05/24 16:00 11/05/24 16:01 DC Nitroglycerin (Nitrostat) 0.4 mg Q5M PRN SL CHEST PAIN 11/05/24 16:00 Vital Signs Date Time Temp Pulse Resp B/P (MAP) Pulse Ox O2 Delivery O2 Flow Rate FiO2 11/05/24 17:25 98.6 83 17 114/69 99 Room Air* 0 21 11/05/24 15:55 98.6 80 19 109/63 99 Room Air* 0 21 11/05/24 15:37 98.2 79 20 109/75 96 Room Air 0 HEART Score Response (Comments) Value History: Low suspicion (0) 0 EKG: Normal 0 Age: < 45yrs (0) 0 Risk Factors: 1-2 risk factors (+1) 1 Initial Troponin: Normal limit (0) 0 Total 1 Medical Decision Making MDM MDM: 44-year-old female brought in for epigastric pain/chest pain onset in the morning. Patient states he was not daycare when he began with the pain. Denies having any shortness a breath, cough, congestion, headaches, fever nausea or vomiting.CBC shows no leukocytosis, no anemia, no thrombocytopenia. Chemistry shows mild hyponatremia at 1:35 a.m.. Normal troponin. EKGs shows no ST elevation or dysrhythmias. Chest pain has subsided without any medications. Vital signs have remained stable. Patient is wishing to go home at this time. Discussed with the patient on signs and symptoms of return back to the ER. Patient verbalized understanding, answered all questions. Differential diagnosis: STEMI, NSTEMI, dehydration, electrolyte abnormality, costochondritis Rationale: Tests considered and ordered secondary to shared decision making include: Previous outside records reviewed: Old ER visits. Risk of complication and/or morbidity or mortality of patient management: None Medications-Per medication reconciliation Need for hospitalization: Patient does not meet criteria for hospitalization. Need for emergency major/minor surgery: No There are no social concerns with this patient. Prescription drug management Prescriptions will include symptomatic care Patient's prior external medical records from other ER visits were reviewed by me as indicated. Prior testing and results from previous visits were reviewed. Prior tests were taken into account with medical decision making and resource utilization, independent historian/historians were used to obtain complete medical history. I independently interpreted the test that were performed, results were reviewed by me and considered findings on radiology if ordered. Medical management and examination interpretation discussions were had by me with other qualified healthcare professionals as indicated for the patient's care. DX & DISP Disposition: Discharge Departure Impression: Primary Impression: Costochondritis Condition: Stable Additional Instructions: Follow up with your primary doctor in 1-2 days. Return for worsening symptoms. Referrals: JACKI RAINEY (PCP) Time of Disposition: 17:36 I have reviewed the case, and I agree with, Diagnosis and Plan RAMIRO GALLARDO NP Nov 05, 2024 17:37
--- NOTE | 2024-11-06 07:33 | EKG ---
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 : 1980 Requested By: RAMIRO GALLARDO Order Number: [id number] Reading MD: Panda Polo Measurements Intervals [place] Rate: 81 P: 22 [place]: 204 QRS: -43 QRSD: 125 T: 60 QT: 379 QTc: 441 Interpretive Statements Sinus rhythm Borderline prolonged [place] interval Nonspecific IVCD with LAD ST elev, probable normal early repol pattern Compared to ECG 10/21/2024 16:39:07 Intraventricular conduction delay now present Left anterior fascicular block no longer present ST (T wave) deviation still present Electronically Signed On 11-06-2024 23:36:29 CDT by Panda Polo Please click the below link to view image of tracing.
== END 2024-11-05 17:40 | disposition home or self-care (01) ==
LOC: EDH 15:35
DX: M94.0 Chondrocostal junction syndrome [Tietze] (principal); E11.9 Type 2 diabetes mellitus without complications; E78.00 Pure hypercholesterolemia, unspecified; I10 Essential (primary) hypertension; I25.10 Atherosclerotic heart disease of native coronary artery without angina pectoris; J45.909 Unspecified asthma, uncomplicated; F17.200 Nicotine dependence, unspecified, uncomplicated; F32.A Depression, unspecified; F41.9 Anxiety disorder, unspecified; Z79.82 Long term (current) use of aspirin; Z79.84 Long term (current) use of oral hypoglycemic drugs; Z79.899 Other long term (current) drug therapy
CPT/HCPCS: 36415; 71045; 80048; 84484; 85025; 93005; 99285

== ENCOUNTER 2024-12-10 13:33 | Emergency (ER) | payer MEDICAID ==
[~2024-12-10] VITALS: Ht 180.3 cm; Wt 122.5 kg
[2024-12-10 14:03] LABS: IMMATURE GRANULOCYTE ABSOLUTE 0.03 K/uL (0-1); NUCLEATED RED BLOOD CELLS 0.0 % (0.0-0.19); PLATELET COUNT (AUTO) 166 K/uL (130-400); RED BLOOD CELL COUNT(AUTO) 4.91 MIL/uL (4.50-6.20); RED CELL DISTRIBUTION WIDTH 12.8 % (11.0-15.5); WHITE BLOOD COUNT (AUTO) 11.4 K/uL (4.8-10.8)
[2024-12-10 14:12] LABS: AMPHET/METH SCREEN,URINE NEGATIVE (NEGATIVE); BARBITURATE SCREEN, URINE NEGATIVE (NEGATIVE); CANNABINOID SCREEN,URINE NEGATIVE (NEGATIVE); COCAINE SCREEN,URINE NEGATIVE (NEGATIVE)
--- NOTE | 2024-12-10 14:16 | ERN ---
General Chief Complaint: Dizzy/Light Headed Stated Complaint: DIZZY Time Seen by MD: 13:34 Source: patient History of Present Illness Initial Comments PATIENT IS A 44-YEAR-OLD MALE COMING IN GENERALIZED BODY WEAKNESS. PATIENT STATES THAT HE DOES NOT HAVE ANY CHRONIC HISTORY OF THIS. STATES THAT THE SYMPTOMS INTENSIFIED THE LAST COUPLE OF DAYS. Allergies: Coded Allergies: No Known Drug Allergies (Verified Allergy, Unknown, 09/14/15) Home Meds Active Scripts Lactulose (Lactulose) 10 Gram/15 Ml Solution, 30 ML PO BID for constipation, #500 ML 0 Refills Prov:HERMELINDA VILLAFANA MD 08/26/24 Magnesium Citrate (Magnesium Citrate) 296 Ml Solution, 296 ML PO ONCE for 1 Day, #296 ML 0 Refills Prov:HERMELINDA VILLAFANA MD 08/26/24 Loratadine (Loratadine) 10 Mg Tablet, 1 TAB PO DAILY for allergy symptoms for 10 Days, #10 TAB 0 Refills Prov:LAWRENCE VARGAS MD 07/12/24 Reported Medications Pioglitazone HCl (Pioglitazone HCl) 15 Mg Tablet, 1 TAB PO DAILY for 30 Days, #30 TAB 0 Refills 08/24/24 Rosuvastatin Calcium (Rosuvastatin Calcium) 40 Mg Tablet, 1 TAB PO HS for high cholesterol for 30 Days, #30 TAB 0 Refills 08/24/24 Sitagliptin Phosphate (Januvia) 50 Mg Tablet, 1 TAB PO DAILY for 30 Days, #30 TAB 0 Refills 08/24/24 Valbenazine Tosylate (Ingrezza) 80 Mg Capsule, 1 CAP PO HS for 30 Days, #30 CAP 0 Refills 08/24/24 Fluoxetine HCl (Fluoxetine HCl) 40 Mg Capsule, 1 CAP PO DAILY 08/24/24 Metoprolol Tartrate (Metoprolol Tartrate) 25 Mg Tablet, 1 TAB PO BID for 30 Days, #60 TAB 0 Refills 08/24/24 Aspirin (ASPIRIN 81MG CHEW TAB) 81 Mg Tab.chew, 81 MG PO DAILY, TAB.CHEW 06/13/23 Hydroxyzine Pamoate (Hydroxyzine Pamoate) 50 Mg Capsule, 100 MG PO BID PRN for ANXIETY/AGITATION, CAP 06/13/23 Trazodone HCl (Trazodone HCl) 150 Mg Tablet, 150 MG PO HS, TAB 06/13/23 Empagliflozin (Jardiance) 10 Mg Tablet, 25 MG PO DAILY, TAB 06/13/23 Metformin HCl (Metformin HCl) 1,000 Mg Tablet, 1000 MG PO BID, TAB 06/13/23 Lisinopril (Lisinopril) 2.5 Mg Tablet, 5 MG PO DAILY, TAB 06/13/23 Past Medical History Past Medical History: Anxiety, Bipolar, Depression, Diabetes-Type II, High Cholesterol, Heart Disease, Hypertension, Other Medical History Other: psych disorders Past Surgical History: None Surgical History Other: abd sx Family History Family History: Negative Social History Social History: Smokers, ETOH, Negative, Lives with family, Other ROS Dictation CONSTITUTIONAL: NO CHILLS, NO FEVER, WEAKNESS, NO DIAPHORESIS, NO MALAISE. HEAD/FACE: NO SIGNS OF TRAUMA. EENT: NO EYE PAIN, NO BLURRED VISION, NO TEARING, NO DOUBLE VISION, NO EAR PAIN, NO EAR DISCHARGE, NO NOSE PAIN, NO NASAL CONGESTION, NO THROAT PAIN, NO THROAT SWELLING, NO MOUTH PAIN. RESPIRATORY: NO COUGH, NO ORTHOPNEA, NO SOB, NO STRIDOR, NO WHEEZING. CARDIOVASCULAR: NO CHEST PAIN, NO EDEMA, NO PALPITATIONS, NO SYNCOPE. GASTROINTESTINAL/ABDOMINAL: NO ABDOMINAL PAIN, NO CONSTIPATION, NO DIARRHEA, NO NAUSEA, NO VOMITING. GENITOURINARY: NO ABNORMAL DISCHARGE, NO DYSURIA, NO FREQUENT URINATION, NO HEMATURIA. NO COMPLAINTS OF PAIN IN THE GENITALS. MUSCULOSKELETAL: NO BACK PAIN, NO GOUT, NO JOINT PAIN, NO JOINT SWELLING, NO MUSCLE PAIN, NO MUSCLE STIFFNESS, NO NECK PAIN. INTEGUMENTARY: NO CHANGE IN COLOR, NO CHANGE IN HAIR/NAILS, NO DRYNESS, NO LESION, NO LUMPS, NO RASH. NEUROLOGICAL/PSYCH: NO ANXIETY, NOT DEPRESSED, NO EMOTIONAL PROBLEM, NO HEADACHE, NO NUMBNESS, NO PRE-EXISTING DEFICIT, NO HISTORY OF SEIZURES, NO TREMORS, NO WEAKNESS. HEMATOLOGIC/LYMPHATIC: NOT ANEMIC, NO HISTORY OF BLOOD CLOTS, NO APPARENT BLEEDING, NO BRUISING, GLANDS NOT SWOLLEN. ALL SYSTEMS NEGATIVE, EXCEPT NOTED. Physical Exam Physical Exam Dictation VITAL SIGNS: REVIEWED. GENERAL APPEARANCE: ALERT, ORIENTED X3, NO ACUTE DISTRESS, OBESE. HEAD AND FACE: NON-TRAUMATIC. EYES: PERRL, PINK CONJUNCTIVAS, EYELID NO TRAUMA, ANTERIOR CHAMBER CLEAR. EARS: PINNAS INTACT AND NO SIGNS OF TRAUMA OR ERYTHEMA. EAR CANALS CLEAR AND NO DISCHARGE. TMS NO ERYTHEMA. NOSE: NO DISCHARGE, NO BLEEDING. OROPHARYNX: MOUTH NORMAL, TEETH NO CARIES, TONGUE PINK. PHARYNX CLEAR, NO ERYTHEMA. TONSILS NO EXUDATES, NO ABSCESSES NOTED. MUCOUS MEMBRANE MOIST. NECK: SUPPLE, NON-TENDER, NO THYROMEGALY, NO MASSES, NO JVD, NO BRUITS. BREAST: DEFERRED. CHEST: NO TENDERNESS, NO CREPITUS, NO PARADOXICAL MOVEMENT, NO RETRACTIONS. LUNGS: CLEAR, WELL-VENTILATED, SYMMETRIC, NO RALES, NO WHEEZING, NO RHONCHI, NO STRIDOR, GOOD BREATH SOUNDS BILATERALLY. HEART: REGULAR RATE, REGULAR RHYTHM, NO MURMUR, NO GALLOPS. VASCULAR: NO PERIPHERAL EDEMA. ABDOMEN: SOFT, POSITIVE BOWEL SOUNDS, NONDISTENDED, NO GUARDING, NONTENDER, NO REBOUND, NO MASSES NO HEPATOMEGALY, NO SPLENOMEGALY, NO PIMENTEL'S SIGN, NO HERNIAS. RECTAL: DEFERRED. GENITAL: DEFERRED. NEUROLOGICAL: NORMAL SPEECH, GROSS MOTOR FUNCTION INTACT, GROSS SENSORY FUNCTION INTACT. MUSCULOSKELETAL: NECK NONTENDER, FULL RANGE OF MOTION, BACK NONTENDER, FULL RANGE OF MOTION. EXTREMITIES: NONTENDER, FULL RANGE OF MOTION. SKIN: COLOR PINK, DRY, NO TURGOR, NO RASH, NO LACERATIONS, NO ABRASIONS, NO CONTUSIONS. LYMPHATICS: DEFERRED. Results Laboratory and Microbiology Lab and Micro Result Laboratory Tests Test 12/10/24 13:44 12/10/24 14:00 White Blood Count 11.4 K/uL (4.8-10.8) H Red Blood Count 4.91 MIL/uL (4.50-6.20) Hemoglobin 15.1 g/dL (14.0-18.0) Hematocrit 44.3 % (42-54) Mean Corpuscular Volume 90.2 fL (79-99) Mean Corpuscular Hemoglobin 30.8 pg (27.0-33.0) Mean Corpuscular Hemoglobin Concent 34.1 g/dL (32.0-36.0) Red Cell Distribution Width 12.8 % (11.0-15.5) Platelet Count 166 K/uL (130-400) Mean Platelet Volume 11.2 fL (7.5-10.5) H Immature Granulocyte % (Auto) 0.3 % (0-1) Neutrophils (%) (Auto) 65.3 % (40.0-77.0) Lymphocytes (%) (Auto) 22.0 % (21.0-51.0) Monocytes (%) (Auto) 11.6 % (3.0-13.0) Eosinophils (%) (Auto) 0.4 % (0.0-8.0) Basophils (%) (Auto) 0.4 % (0.0-5.0) Neutrophils # (Auto) 7.4 K/uL (1.8-7.7) Lymphocytes # (Auto) 2.5 K/uL (1.0-4.8) Monocytes # (Auto) 1.3 K/uL (0.1-1.0) H Eosinophils # (Auto) 0.04 K/uL (0.00-0.70) Basophils # (Auto) 0.04 K/uL (0.00-0.20) Absolute Immature Granulocyte (auto 0.03 K/uL (0-1) Nucleated Red Blood Cells 0.0 % (0.0-0.19) Sodium Level 133 mmol/L (136-145) L Potassium Level 4.0 mmol/L (3.5-5.1) Chloride Level 96 mmol/L (101-111) L Carbon Dioxide Level 30 mmol/L (21-32) Blood Urea Nitrogen 11 mg/dL (7-18) Creatinine 0.7 mg/dL (0.5-1.3) Glomerular Filtration Rate Calc 117 mL/min (>90) Random Glucose 207 mg/dL (70-105) H Total Calcium 9.2 mg/dL (8.5-10.1) Total Creatine Kinase 103 U/L (21-232) # Troponin I High Sensitivity 4 ng/L (4-75) Urine Color COLORLESS (YELLOW) Urine Appearance CLEAR (CLEAR) Urine pH 6.5 (5.0-8.0) Urine Specific [place] 1.012 (1.001-1.031) Urine Protein NEGATIVE mg/dL (NEGATIVE) Urine Glucose (UA) >=1000 mg/dL (NEGATIVE) H Urine Ketones NEGATIVE mg/dL (NEGATIVE) Urine Occult Blood NEGATIVE (NEGATIVE) Urine Nitrate NEGATIVE (NEGATIVE) Urine Bilirubin NEGATIVE mg/dL (NEGATIVE) Urine Urobilinogen 0.2 mg/dL (0.2-1.0) Urine Leukocyte Esterase NEGATIVE Joshua/uL Urine RBC 0-1 /HPF (0-1) Urine WBC 0-1 /HPF (0-1) Urine Squamous Epithelial Cells RARE /HPF (0-2) Urine Bacteria None /HPF (None Seen) Urine Opiates Screen NEGATIVE (NEGATIVE) Urine Barbiturates Screen NEGATIVE (NEGATIVE) Urine Phencyclidine Screen NEGATIVE (NEGATIVE) Urine Amphetamines Screen NEGATIVE (NEGATIVE) Urine Benzodiazepines Screen NEGATIVE (NEGATIVE) Urine Cocaine Screen NEGATIVE (NEGATIVE) Urine Marijuana (THC) Screen NEGATIVE (NEGATIVE) Labs Reviewed?: Yes MDM MDM: DIFFERENTIAL DIAGNOSIS: DEHYDRATION, CHRONIC VERTIGO, RATIONALE: TESTS CONSIDERED AND ORDERED SECONDARY TO SHARED DECISION MAKING INCLUDE: PREVIOUS OUTSIDE RECORDS REVIEWED: OLD ER VISITS. RISK OF COMPLICATION AND/OR MORBIDITY OR MORTALITY OF PATIENT MANAGEMENT: NONE MEDICATIONS-PER MEDICATION RECONCILIATION NEED FOR HOSPITALIZATION: PATIENT DOES NOT MEET CRITERIA FOR HOSPITALIZATION. NEED FOR EMERGENCY MAJOR/MINOR SURGERY: NO PATIENT IS A 44-YEAR-OLD MALE COMING IN COMPLAINING OF GENERALIZED BODY WEAKNESS AND VERTIGO. PER PATIENT HE DOES HAS A HISTORY OF VERTIGO. STATES THAT THE SYMPTOMS WORSENED COUPLE OF DAYS AGO. LABORATORY WORKUP WITH A DEHYDRATION PATIENT WAS HYDRATED IV FLUIDS STATES HE FEELS MUCH BETTER. PATIENT WILL BE DISCHARGED IN STABLE CONDITION WITH A DIAGNOSIS OF DEHYDRATION. ED Course Orders Procedure Category Date Status Time Cbc With Differential LAB 12/10/24 Complete 13:37 Chest 1vw RAD 12/10/24 Resulted 13:37 12 Lead Ekg Tracing- EKG 12/10/24 Logged Technical 13:37 0.9%Nacl 1000ml (Ns PHA 12/10/24 Complete 1000ml) 14:00 Creatine Kinase, Total LAB 12/10/24 Complete 13:37 Troponin I High LAB 12/10/24 Complete Sensitivity 13:37 Urinalysis Profile LAB 12/10/24 Complete 13:37 Basic Metabolic Panel LAB 12/10/24 Complete 13:37 Drug Screen Urine LAB 12/10/24 Complete 13:37 Current Medications Medications (Trade) Dose Ordered Sig/Scooby Route PRN Reason Start Time Stop Time Status Last Admin Dose Admin Sodium Chloride 1,000 ml @ 0 mls/hr ONCE ONCE IV 12/10/24 14:00 12/10/24 14:01 DC 12/10/24 14:22 Vital Signs Date Time Temp Pulse Resp B/P (MAP) Pulse Ox O2 Delivery O2 Flow Rate FiO2 12/10/24 14:55 98.1 95 15 112/70 100 Room Air* 0 21 19/25 13:55 98.1 98 17 101/58 98 Room Air* 0 12/10/24 13:40 98.4 102 18 102/51 98 Room Air* 0 12/10/24 13:36 98.4 102 18 102/51 98 Room Air 0 DX & DISP Disposition: Discharge Departure Impression: Primary Impression: Dehydration Condition: Stable Additional Instructions: FOLLOW-UP WITH PRIMARY CARE PROVIDER IN 1 TO 2 DAYS. TAKE MEDICATIONS DIRECTED HERE IN THE EMERGENCY ROOM. OKAY TO CONTINUE HOME MEDICATIONS UNLESS OTHERWISE DISCUSSED DURING YOUR VISIT IN THE EMERGENCY ROOM TODAY. RETURN TO YOUR NEAREST EMERGENCY ROOM IF SYMPTOMS WORSEN OR IF THERE IS NO IMPROVEMENT. CALL 911 IF YOU NEED IMMEDIATE ASSISTANCE. TAKE TYLENOL HIMP-HII-AFWMHED NEEDED AND IF NO CONTRAINDICATIONS ARE PRESENT. INCREASE ORAL HYDRATION. A WOUND CULTURE OR URINE CULTURE WAS ORDERED HERE IN THE EMERGENCY ROOM DEPARTMENT PLEASE FOLLOW-UP WITH PRIMARY CARE PROVIDER AND ADVISE THEM TO GET REPORTS FROM OUR FACILITY. IF YOU HAD ANY ENZO WRAP/SPLINTS THAT WERE APPLIED HERE, PLEASE DO NOT REMOVE THEM UNTIL YOU SEE YOUR PRIMARY CARE OR SPECIALTY. REFERRALS: Referrals: JACKI RAINEY (PCP) Time of Disposition: 15:21 LITZY NI MD Dec 10, 2024 14:16
[2024-12-10 14:20] LABS: APPEARANCE,URINE CLEAR (CLEAR); GLUCOSE, URINE (UA) >=1000 mg/dL (NEGATIVE); LEUKOCYTE ESTERASE ,URINE NEGATIVE Leu/uL (NEGATIVE); NITRATE,URINE NEGATIVE (NEGATIVE); OCCULT BLOOD,URINE NEGATIVE (NEGATIVE)
[2024-12-10] MEDS: 0.9%NACL 1000ML 1,000 ML IV ONE (14:22)
[2024-12-10 14:23] LABS: CREATININE 0.7 mg/dL (0.5-1.3); GLOMERULAR FILTR. RATE CALC 117.0 mL/min (>90); GLUCOSE,RANDOM 207.0 mg/dL (70-105); SODIUM SERUM 133.0 mmol/L (136-145); UREA NITROGEN, BLOOD 11.0 mg/dL (7-18)
[2024-12-10 14:25] LABS: ADD UA MICROSCOPIC YES
--- NOTE | 2024-12-10 14:27 | HMCIMG ---
EXAM: CR Chest, 1 View. CLINICAL HISTORY: VERTIGO COMPARISON: 11/05/2024 FINDINGS: LUNGS: The lungs show no infiltrate or other acute finding. PLEURAL SPACES: No pleural effusion or pneumothorax. MEDIASTINUM: The cardiomediastinal silhouette is within normal limits. BONES: No acute osseous abnormality. IMPRESSION: No acute cardiopulmonary pathology is evident. /[place]
[2024-12-10 14:29] LABS: SQUAMOUS EPITHELIAL CELL,UR RARE /HPF (0-2)
[2024-12-10 14:31] LABS: CREATINE KINASE, TOTAL 103.0 U/L (21-232)
[2024-12-10 14:55] VITALS: BP 112/70; PULSE 95; RESP 15; TEMP 98; O2SAT 100
--- NOTE | 2024-12-11 06:34 | EKG ---
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 : 1980 Requested By: LITZY NI Order Number: [id number] Reading MD: Amalia Champagne Measurements Intervals [place] Rate: 93 P: 32 NJ: 209 QRS: -43 QRSD: 118 T: 88 QT: 374 QTc: 465 Interpretive Statements Sinus rhythm Prolonged [place] interval Left anterior fascicular block Nonspecific T abnormalities, lateral leads ST elev, probable normal early repol pattern Compared to ECG 11/05/2024 15:38:53 Left anterior fascicular block now present T-wave abnormality now present Intraventricular conduction delay no longer present ST (T wave) deviation still present Electronically Signed On 12-11-2024 11:35:20 CDT by Amalia Champagne Please click the below link to view image of tracing.
== END 2024-12-10 15:30 | disposition home or self-care (01) ==
LOC: EDH 13:33
DX: E86.0 Dehydration (principal); E11.9 Type 2 diabetes mellitus without complications; E78.00 Pure hypercholesterolemia, unspecified; F31.9 Bipolar disorder, unspecified; F41.9 Anxiety disorder, unspecified; I10 Essential (primary) hypertension; F17.200 Nicotine dependence, unspecified, uncomplicated; Z79.82 Long term (current) use of aspirin; Z79.84 Long term (current) use of oral hypoglycemic drugs; Z79.899 Other long term (current) drug therapy
CPT/HCPCS: 99285; 96360; 71045; 82550; 84484; 80048; 80305; 85025; 36415; 93005; 81001; J7030; 99284

== ENCOUNTER 2025-04-01 20:37 | Emergency (ER) | payer MEDICAID ==
[~2025-04-01] VITALS: Ht 170.2 cm; Wt 90.7 kg
--- NOTE | 2025-04-01 20:45 | ERN ---
ED Note History of Present Illness Stated Complaint: BACKPAIN Chief Complaint: Back Injury Time Seen by MD: 20:39 Dictation: PATIENT IS A 44-YEAR-OLD MALE COMING IN [facility] WITH COMPLAINTS OF LOW THORACIC PAIN ONSET WAS YESTERDAY. HE STATES HE WAS HELPING HIS MOTHER MOVE A COUCH WHEN HE FELT THE PAIN HAD TO PUT THE COUCH DOWN. HE DENIES ANY PRIOR HISTORY IS OR SURGERIES TO HIS BACK. HE STATES HE HAS NOT TAKEN ANYTHING FOR PAIN BEFORE COMING TO [facility] [place] BECAUSE HE DOES NOT HAVE ANYTHING AT HOME Allergies: Coded Allergies: No Known Drug Allergies (Verified Allergy, Unknown, 09/14/15) Home Meds Active Scripts Lactulose (Lactulose) 10 Gram/15 Ml Solution, 30 ML PO BID for constipation, #500 ML 0 Refills Prov:HERMELINDA VILLAFANA MD 08/26/24 Magnesium Citrate (Magnesium Citrate) 296 Ml Solution, 296 ML PO ONCE for 1 Day, #296 ML 0 Refills Prov:HERMELINDA VILLAFANA MD 08/26/24 Loratadine (Loratadine) 10 Mg Tablet, 1 TAB PO DAILY for allergy symptoms for 10 Days, #10 TAB 0 Refills Prov:LAWRENCE VARGAS MD 07/12/24 Reported Medications Pioglitazone HCl (Pioglitazone HCl) 15 Mg Tablet, 1 TAB PO DAILY for 30 Days, #30 TAB 0 Refills 08/24/24 Rosuvastatin Calcium (Rosuvastatin Calcium) 40 Mg Tablet, 1 TAB PO HS for high cholesterol for 30 Days, #30 TAB 0 Refills 08/24/24 Sitagliptin Phosphate (Januvia) 50 Mg Tablet, 1 TAB PO DAILY for 30 Days, #30 TAB 0 Refills 08/24/24 Valbenazine Tosylate (Ingrezza) 80 Mg Capsule, 1 CAP PO HS for 30 Days, #30 CAP 0 Refills 08/24/24 Fluoxetine HCl (Fluoxetine HCl) 40 Mg Capsule, 1 CAP PO DAILY 08/24/24 Metoprolol Tartrate (Metoprolol Tartrate) 25 Mg Tablet, 1 TAB PO BID for 30 Days, #60 TAB 0 Refills 08/24/24 Aspirin (ASPIRIN 81MG CHEW TAB) 81 Mg Tab.chew, 81 MG PO DAILY, TAB.CHEW 06/13/23 Hydroxyzine Pamoate (Hydroxyzine Pamoate) 50 Mg Capsule, 100 MG PO BID PRN for ANXIETY/AGITATION, CAP 06/13/23 Trazodone HCl (Trazodone HCl) 150 Mg Tablet, 150 MG PO HS, TAB 06/13/23 Empagliflozin (Jardiance) 10 Mg Tablet, 25 MG PO DAILY, TAB 06/13/23 Metformin HCl (Metformin HCl) 1,000 Mg Tablet, 1000 MG PO BID, TAB 06/13/23 Lisinopril (Lisinopril) 2.5 Mg Tablet, 5 MG PO DAILY, TAB 06/13/23 Past Medical History Past Medical History: Anxiety, Bipolar, Depression, Diabetes-Type II, High Cholesterol, Heart Disease, Hypertension, Other Additional Past Medical Hx: psych disorders Surgical History: None Surgical History Other: abd sx Family History: Negative Social History: Smokers, ETOH, Negative, Lives with family, Other RN Note Reviewed/Agreed w/PFSH: Yes Review of System Dictation CONSTITUTIONAL: NEGATIVE EXCEPT FOR HPI HEAD/FACE: NEGATIVE EXCEPT FOR HPI EENT: NEGATIVE EXCEPT FOR HPI RESPIRATORY: NEGATIVE EXCEPT FOR HPI GASTROINTESTINAL/ABDOMINAL: NEGATIVE EXCEPT FOR HPI GENITOURINARY: NEGATIVE EXCEPT FOR HPI MUSCULOSKELETAL: NEGATIVE EXCEPT FOR HPI LOW THORACIC PAIN INTEGUMENTARY: NEGATIVE EXCEPT FOR HPI NEUROLOGICAL/PSYCH: NEGATIVE EXCEPT FOR HPI HEMATOLOGIC/LYMPHATIC: NEGATIVE EXCEPT FOR HPI ALL SYSTEMS NEGATIVE, EXCEPT NOTED ABOVE. 13 POINT REVIEW OF SYSTEMS ASSESSED AND ALL NEGATIVE EXCEPT FOR ABOVE. Initial Vital Sign VS Vital Signs Date Time Temp Pulse Resp B/P (MAP) Pulse Ox O2 Delivery O2 Flow Rate FiO2 04/01/25 20:39 98.1 109 18 129/78 100 Room Air 0 04/01/25 20:47 21 Physical Exam Dictation VITAL SIGNS REVIEWED GENERAL APPEARANCE: ALERT, ORIENTED X 3, MILD ACUTE DISTRESS, WELL DEVELOPED, NOURISHED. HEAD AND FACE: NON-TRAUMATIC. EYES: PERRL, PINK CONJUNCTIVAS, EYELID NO TRAUMA, ANTERIOR CHAMBER WITH ARCUS SENILIS. EARS: PINNAS INTACT AND NO SIGNS OF TRAUMA OR ERYTHEMA EAR CANALS CLEAR AND NO DISCHARGE TM NO ERYTHEMA NOSE: NO DISCHARGE, NO BLEEDING. OROPHARYNX: MOUTH NORMAL, TONGUE PINK, PHARYNX CLEAR,NO ERYTHEMA, TONSILS NO EXUDATES, NO ABSCESSES NOTED, MUCOUS MEMBRANE MOIST NECK: SUPPLE, NON-TENDER, NO THYROMEGALY, NO MASSES, NO JVD, NO BRUITS BREAST:DEFERRED CHEST:NO TENDERNESS, NO CREPITUS, NO PARADOXICAL MOVEMENT, NO RETRACTIONS LUNGS:CLEAR, WELL-VENTILATED, SYMMETRIC, NO RALES, NO WHEEZING, NO RHONCHI, NO STRIDOR, GOOD BREATH SOUNDS BILATERALLY HEART: REGULAR RATE, REGULAR RHYTHM, NO MURMUR, NO GALLOPS VASCULAR: NO PERIPHERAL EDEMA, ABDOMEN: SOFT, POSITIVE BOWEL SOUNDS, NONDISTENDED, NO GUARDING, NONTENDER, NO REBOUND, NO MASSES NO HEPATOMEGALY, NO SPLENOMEGALY, NO PIMENTEL'S SIGN, NO HERNIAS. RECTAL: DEFERRED GENITAL: , FULL RANGE OF MOTION, EXTREMITIES: NONTENDER, FULL RANGE OF MOTION MILD THORACIC PAIN T7 THROUGH 12. MIDLINE SPINE PAIN OR STEP-OFFS. POSITIVE PARASPINOUS SPASM NOTED SKIN: COLOR PINK, DRY, NO TURGOR, NO RASH, NO LACERATIONS, NO ABRASIONS, NO CONTUSIONS. LYMPHATIC: DEFERRED Results (Laboratory/Radiology) Laboratory/Radiology PATIENT: CHARLIE DANIELLE MR#: [id number] : 1980 SEX: M AGE: 44 LOCATION: [facility] ORDER 42 STATUS: [facility] REPORT#: [id number] SERVICE 40 REASON: LOW THORACIC PAIN STATUS POST LIFTING INJURY YESTERDAY ORDERING PHYSICIAN: TRISTIN LOBATO PEARL DIVER PROCEDURE: THOR 2VW - THORACIC SPINE 2VWS EXAM: CR Thoracic Spine, 3 Views. CLINICAL HISTORY: LOW THORACIC PAIN STATUS POST LIFTING INJURY YESTERDAY. COMPARISON: None provided. FINDINGS: BONES: No acute fracture or aggressive appearing osseous lesion. Mild scoliosis of the Thoracicspine with concavity toward the right, likely positional or due to muscular spasm. DISCS / DEGENERATIVE CHANGES: Small vertebral endplate osteophytes are seen in the thoracic vertebrae anteriorly, representing mild degenerative changes The disc spaces are preserved. SOFT TISSUES: The paraspinal soft tissue lines are unremarkable. The visualized lungs are clear. MISCELLANEOUS: Visualization of the upper thoracic spine is limited on the lateral view by overlying structures. IMPRESSION: No acute thoracic spine osseous abnormality. Mild degenerative-spondylotic changes in the thoracic spine. Mild scoliosis of the Thoracicspine with concavity toward the right, likely positional or due to muscular spasm. /[place] Labs Reviewed?: Yes ED Course ED Course Orders Procedure Category Date Status Time Thoracic Spine 2vws RAD 04/01/25 Resulted 20:41 Ibuprofen 800 Mg Tab PHA 04/01/25 Complete (Motrin) 21:00 Cyclobenzaprine Hcl PHA 04/01/25 Complete (Cyclobenzaprine Hcl 21:00 Dexamethasone 4mg/Ml PHA 04/01/25 Complete 1ml Vial (Dexametha 21:00 Current Medications Medications (Trade) Dose Ordered Sig/Scooby Route PRN Reason Start Time Stop Time Status Last Admin Dose Admin Cyclobenzaprine HCl (Cyclobenzaprine HCl) 10 mg ONCE ONCE PO 04/01/25 21:00 04/01/25 21:01 DC 04/01/25 20:50 Dexamethasone Sodium Phosphate (dexaMETHasone 4MG/ML 1ML VIAL) 8 mg ONCE ONCE IM 04/01/25 21:00 04/01/25 21:01 DC 04/01/25 20:51 Ibuprofen (moTRIN) 800 mg ONCE ONCE PO 04/01/25 21:00 04/01/25 21:01 DC 04/01/25 20:50 Vital Signs Date Time Temp Pulse Resp B/P (MAP) Pulse Ox O2 Delivery O2 Flow Rate FiO2 04/01/25 20:47 98.1 92 18 122/66 100 Room Air* 0 21 04/01/25 20:39 98.1 109 18 129/78 100 Room Air 0 2138/PATIENT STATES PAIN IS MARKEDLY IMPROVED AFTER TREATMENT. Medical Decision Making MDM MEDICAL DECISION-MAKING BASED ON EMPIRIC TREATMENT FOR ACUTE THORACIC PAIN PATIENT GIVEN IBUPROFEN/DECADRON/FLEXERIL X-RAY OF THORACIC SPINE DEMONSTRATES SCOLIOTIC LEAN WITH DEGENERATIVE CHANGES. NO FRACTURES PATIENT DISCHARGED HOME WITH MEDROL DOSEPAK/IBUPROFEN/CYCLOBENZAPRINE HEAT THERAPY INFORMATION SEE HIS PRIMARY CARE DOCTOR FOR FOLLOW UP DX & DISP Disposition: Discharge Departure Impression: Primary Impression: Acute thoracic myofascial strain Additional Impressions: DJD (degenerative joint disease), thoracic, Scoliosis Condition: Stable Scripts Cyclobenzaprine HCl (Cyclobenzaprine HCl) 10 Mg Tablet 1 TAB PO TID for muscle spasms for 10 Days, #30 TAB 0 Refills Prov: TRISTIN LOBATO PEARL DIVER 04/01/25 Ibuprofen (Ibuprofen 800 mg Tab) 800 Mg Tab 800 MG PO Q8H PRN for fever or pain, #30 TAB 0 Refills Prov: TRISTIN LOBATO 04/01/25 Methylprednisolone (Medrol) 4 Mg Tab.ds.pk 1 TAB PO AD for 6 Days, #21 TAB 0 Refills 6 on day 1 then reduce by one tablet daily until gone Prov: TRISTIN LOBATO 04/01/25 Additional Instructions: FOLLOW-UP WITH PRIMARY CARE PROVIDER IN 1 TO 2 DAYS. TAKE MEDICATIONS DIRECTED HERE IN THE EMERGENCY ROOM. OKAY TO CONTINUE HOME MEDICATIONS UNLESS OTHERWISE DISCUSSED DURING YOUR VISIT IN THE EMERGENCY ROOM TODAY. RETURN TO YOUR NEAREST EMERGENCY ROOM IF SYMPTOMS WORSEN OR IF THERE IS NO IMPROVEMENT. CALL 911 IF YOU NEED IMMEDIATE ASSISTANCE. TAKE TYLENOL OR MOTRIN [id number] NEEDED AND IF NO CONTRAINDICATIONS ARE PRESENT. INCREASE ORAL HYDRATION. A WOUND CULTURE OR URINE CULTURE WAS ORDERED HERE IN THE EMERGENCY ROOM DEPARTMENT PLEASE FOLLOW-UP WITH PRIMARY CARE PROVIDER AND ADVISE THEM TO GET REPEAT PORTS FROM OUR FACILITY. IF YOU HAD ANY ENZO WRAP/SPLINTS THAT WERE APPLIED HERE, PLEASE DO NOT REMOVE THEM UNTIL YOU SEE YOUR PRIMARY CARE OR SPECIALTY. TAKE MEDROL DOSEPAK DIRECTED UNTIL GONE. TAKE IBUPROFEN AND FLEXERIL EVERY 8 HOURS WITH FOOD FOR THE NEXT TWO DAYS. WARM COMPRESSES TO PAIN THREE TO 4 TIMES A DAY. NO LIFTING GREATER THAN 10 LB UNTIL CLEARED BY YOUR PRIMARY CARE DOCTOR IN THE NEXT 1-2 DAYS. Referrals: JACKI RAINEY (PCP) Time of Disposition: 21:38 I have reviewed the case, and I agree with, Diagnosis and Plan TRISTIN LOBATO Apr 01, 2025 20:45
[2025-04-01] MEDS: CYCLOBENZAPRINE HCL 10 MG TABLET PO ONE (20:50)
--- NOTE | 2025-04-01 21:34 | HMCIMG ---
EXAM: CR Thoracic Spine, 3 Views. CLINICAL HISTORY: LOW THORACIC PAIN STATUS POST LIFTING INJURY YESTERDAY. COMPARISON: None provided. FINDINGS: BONES: No acute fracture or aggressive appearing osseous lesion. Mild scoliosis of the Thoracicspine with concavity toward the right, likely positional or due to muscular spasm. DISCS / DEGENERATIVE CHANGES: Small vertebral endplate osteophytes are seen in the thoracic vertebrae anteriorly, representing mild degenerative changes The disc spaces are preserved. SOFT TISSUES: The paraspinal soft tissue lines are unremarkable. The visualized lungs are clear. MISCELLANEOUS: Visualization of the upper thoracic spine is limited on the lateral view by overlying structures. IMPRESSION: No acute thoracic spine osseous abnormality. Mild degenerative-spondylotic changes in the thoracic spine. Mild scoliosis of the Thoracicspine with concavity toward the right, likely positional or due to muscular spasm. /[place]
[2025-04-01 21:50] VITALS: BP 124/82; PULSE 88; RESP 18; TEMP 98.1; O2SAT 100
== END 2025-04-01 21:51 | disposition home or self-care (01) ==
LOC: EDH 20:37
DX: S29.012A Strain of muscle and tendon of back wall of thorax, initial encounter (principal); M47.814 Spondylosis without myelopathy or radiculopathy, thoracic region; M41.9 Scoliosis, unspecified; I11.9 Hypertensive heart disease without heart failure; F31.9 Bipolar disorder, unspecified; F41.9 Anxiety disorder, unspecified; E78.00 Pure hypercholesterolemia, unspecified; E11.9 Type 2 diabetes mellitus without complications; F17.200 Nicotine dependence, unspecified, uncomplicated; Z79.82 Long term (current) use of aspirin; Z79.899 Other long term (current) drug therapy; Z79.84 Long term (current) use of oral hypoglycemic drugs; X50.0XXA Overexertion from strenuous movement or load, initial encounter; Y93.89 Activity, other specified; Y92.098 Other place in other non-institutional residence as the place of occurrence of the external cause; Y99.8 Other external cause status
CPT/HCPCS: 99283; 72070; 96372; J1100